=== PATIENT | female | born 1995 | race Caucasian/White ===

== ENCOUNTER 2019-10-22 17:10 | Emergency (ER) | payer BC, SELFPAY ==
[2019-10-22 17:22] VITALS: BP 137/95; PULSE 84; RESP 18; TEMP 36.8; O2SAT 98; BMI 28.8
--- NOTE | 2019-10-22 17:28 | HMH.EDUTC ---
[facility] [place] Clinical Impression: Spider bite Qualifiers: Encounter type: initial encounter Injury intent: undetermined intent Qualified Code(s): T63.304A - Toxic effect of unspecified spider venom, undetermined, initial encounter Cellulitis Qualifiers: Site of cellulitis: extremity Site of cellulitis of extremity: upper extremity Laterality: left Qualified Code(s): L03.114 - Cellulitis of left upper limb Disposition: Home, Self-Care Condition on Discharge: Good Instructions: DI for Cellulitis -- Adult, Cellulitis, Clindamycin, DI for Spider Bites Additional Instructions: *Start antibiotic(s) immediately and be sure to take as ordered for the FULL length of time although you may be feeling better or start to see improvement in the next 24-48 hours *Monitor closely. Outlined redness so that you can monitor easier. Follow up immediately for new or worsening symptoms including but not limited to redness, swelling, streaking from site fever or chills. *Warm compress 15 minutes 3-4 times day *Never squeeze or pop these on your own. Seek immediate medical attention next time this occurs *Monitor Temp. Tylenol every 4 hours as needed and ibuprofen every 6 hours as needed (as long as your primary care doctor has told you that it is ok to take both. For fever, aches, pain. ER if no less that 101 despite Tylenol and ibuprofen Follow up with your family doctor/primary care physician in the next 48-72 hours if no improvement Straight to ER if any life threatening symptoms Return if needed Prescriptions: clindamycin HCL [Clindamycin HCl 300mg Cap] 300 mg PO Q8 10 Days #30 cap Transmission Status: Pending to [facility] Referrals: Provider,Referral, [Primary Care Provider] - As needed Time of Disposition: 17:38 Medical Decision Making - Chinedu Inquiry Pt receiving controlled substance: No Chinedu was queried for this patient: No Vital Signs: 10/22/19 17:22 Temperature 98.3 F Temperature Source Oral Pulse Rate [Right Brachial] 84 Respiratory Rate 18 Blood Pressure [Right Arm] 137/95 H Blood Pressure Mean [Right Arm] 109 Blood Pressure Source [Right Arm] Automatic Cuff Blood Pressure Position [Right Arm] Sitting 02 Sat by Pulse Oximetry 98 Oxygen Delivery Method Room Air - Reevaluation(s) Time: 17:38 Reevaluation #1: Recommended lab work and xray and patient declined at this time, states that she will try the antibiotics and if no improvement will return and have lab work and xray Patient verbalized understanding of associated risks [facility] [place] - General Stated complaint: ? spider bite on 10/20/19 left elbow Time Seen by Provider: 10/22/19 17:28 Mode of Arrival: Ambulatory Source of Information: Patient Limitations: No Limitations Description of Symptoms (Recalled from Triage Doc. by RN): PATIENT C/O POSSIBLE SPIDER BITE TO LEFT ELBOW SINCE MONDAY; REDNESS NOTED. STATES SHE HAS BEEN TAKING BENADRYL AT HOME HEENT Symptoms (Recalled from RN notes): No Resp Symptoms (Recalled from RN notes): No Skin Symptoms (Recalled from RN notes): Yes MS Symptoms (Recalled from RN notes): No Functional Status (Recalled from RN notes): WNL - History of Present Illness Provider Complaint: Patient state that she thinks she got bitten by spider a couple of days ago in her left elbow States that ever since she noticed she has had some redness and swelling Denies injury States that it is warm to the touch States that she has been taking Benadryl and it has helped some with the itching - Related Data Home Medications Medication Instructions Recorded Confirmed dorzolamide 2 % eye drops 1 drp OPHTHALMIC TID 07/06/18 07/06/18 latanoprost 0.005 % eye drops 1 drp OPHTHALMIC QPM 07/06/18 07/06/18 tobramycin 0.3 %-lotepred 0.5 % 1 drp OPHTHALMIC QID 07/06/18 07/06/18 eye drops,suspension Previous Rx's Medication Instructions Recorded sulfacetamide sodium 10 % eye drops 1 drp OPHTHALMIC Q4H #15 ml 07/06/18 polyethylen
[2019-10-22 17:40] VITALS: BP 137/95; PULSE 84; RESP 18; TEMP 36.8; O2SAT 98
== END 2019-10-22 17:43 | disposition home or self-care (01) ==
PROVIDERS: Emergency Provider Nurse Practitioner
DX: L03.114 Cellulitis of left upper limb (principal); T63.304A Toxic effect of unspecified spider venom, undetermined, initial encounter; F17.210 Nicotine dependence, cigarettes, uncomplicated
CPT/HCPCS: 99201

== ENCOUNTER 2020-04-23 21:29 | Emergency (ER) | payer BC, SELFPAY ==
[2020-04-23 21:43] VITALS: BP 127/90; PULSE 99; RESP 16; TEMP 37; O2SAT 99; BMI 27.4
--- NOTE | 2020-04-23 21:50 | CT_ITS ---
PROCEDURE: CT ABDOMEN PELVIS WO CON CLINICAL INDICATION: right flank pain COMPARISON: CT ABDPELW CT ABD PELVIS W/ CONTRAST from 10/15/2015 TECHNIQUE: Axial images obtained with sagittal and coronal reformats. All CT scans at the facility use one or more dose reduction, viz: automated exposure control, ma/kV adjustment per patient size (including targeted exams where dose is matched to indication, i.e. head), or iterative reconstruction technique. FINDINGS: Lower thorax: No acute finding ABDOMEN: Liver: No masses or biliary dilatation. Gallbladder: Gallbladder is contracted showing no obvious stones. Pancreas: No masses or peripancreatic fluid collections. Spleen: unremarkable Adrenals: unremarkable Kidneys/ureters: The kidneys are normal in size, there are no calculi seen in either kidney there is no obstructive uropathy noted. There are no calculi seen along the course of either ureter. ABDOMEN & PELVIS: Stomach bowel: The stomach is markedly distended with ingested food particles and air. There are mildly dilated fluid-filled loops of small bowel. There is a moderately large amount stool in the cecum ascending colon and transverse colon. The descending and sigmoid colon are decompressed. The rectum appears normal. Peritoneum: No abnormal fluid collections. No obvious inflammatory changes. No free air. Lymph nodes: No enlarged lymph nodes apparent. Vasculature: No evidence of abdominal aortic aneurysm. No retroperitoneal hemorrhage evident. Bones: No acute fracture PELVIS: Reproductive: unremarkable Bladder: The bladder is partially decompressed but appears normal and there is no free fluid in the pelvis. Appendix: Unremarkable. No distention or periappendiceal phlegmonous change. IMPRESSION: No renal or ureteral calculi identified, [id number] right-sided constipation Dictated by: Dr. Berny Galicia MD 04/24/2020 08:13 Dr. Berny Galicia MD in [place] 04/24/2020 08:13
[2020-04-23 22:00] VITALS: BP 134/88; PULSE 88; RESP 17; O2SAT 99
--- NOTE | 2020-04-23 22:01 | HMH.EDGENADL ---
ED Disposition Clinical Impression: UTI (urinary tract infection) Qualifiers: Urinary tract infection type: site unspecified Hematuria presence: without hematuria Qualified Code(s): N39.0 - Urinary tract infection, site not specified Disposition: Home, Self-Care Condition on Discharge: Good Instructions: DI for Urinary Tract Infection (UTI) Additional Instructions: use meds and call pcp about urine culture Prescriptions: levoFLOXacin [Levaquin 500mg tab] 500 mg PO DAILY #7 tab Transmission Status: Pending to [facility] Referrals: PCP,No [Primary Care Provider] - - Critical Care Critical Care Time: No Attestation: On 04/23/20, the high probability of a clinically significant, sudden or life threatening deterioration of the following system(s) required my full and direct attention, intervention and personal management. The time I documented below is in addition to time spent performing reported procedures but includes the following listed in this critical care notation. Medical Decision Making - Medical Records Medical records reviewed: Yes: I reviewed the patient's medical records. - Chinedu Inquiry Pt receiving controlled substance: No Vital Signs: 04/23/20 21:43 04/23/20 22:00 Temperature 98.6 F Temperature Source Oral Pulse Rate [Right] 99 H 88 Respiratory Rate 16 17 Blood Pressure [Right Arm] 127/90 134/88 Blood Pressure Mean [Right Arm] 102 103 Blood Pressure Source [Right Arm] Automatic Cuff Automatic Cuff Blood Pressure Position [Right Arm] Sitting Supine 02 Sat by Pulse Oximetry 99 99 Oxygen Delivery Method Room Air Room Air - Lab Data Lab results reviewed: Yes: I reviewed the patient's lab results. Lab Results 04/23/20 21:35: Urine Color Yellow, Urine Appearance Cloudy, Urine pH 7.0, Ur Specific [place] 1.020, Urine Protein Negative, Urine Glucose (UA) Negative, Urine Ketones Negative, Urine Blood Negative, Urine Nitrate Negative, Urine Bilirubin Negative, Urine Urobilinogen 0.2, Ur Leukocyte Esterase 2+ A, Urine WBC 5-10, Ur Squamous Epith Cells Occasional, Amorphous Sediment 1+, Urine Bacteria 1+ 04/23/20 21:35: Urine HCG, Qual Negative 04/23/20 21:55: WBC 5.1, RBC 4.88, Hgb 15.0, Hct 45.7, MCV 93.7, MCH 30.8, MCHC 32.9, RDW 13.5, Plt Count 217, MPV 7.3 L, Neut % (Auto) 56.3, Lymph % (Auto) 25.6, [place] % (Auto) 14.6 H, Eos % (Auto) 1.4, Baso % (Auto) 2.0, Neut # (Auto) 2.9, Lymph # (Auto) 1.3, [place] # (Auto) 0.7, Eos # (Auto) 0.1, Baso # (Auto) 0.1 04/23/20 21:55: Sodium 138, Potassium 3.8, Chloride 101, Carbon Dioxide 30, Anion Gap 10.8, BUN 14, Creatinine 0.80, Estimated Creat Clear 114, Estimated GFR 87, Est GFR ( Amer) 105, Glucose 92, Calcium 9.7, Total Bilirubin 0.5, AST 48 H, ALT 53, Alkaline Phosphatase 46, C-Reactive Protein 0.8, Total Protein 7.7, Albumin 4.5, Globulin 3.2, Albumin/Globulin Ratio 1.4, Amylase 61, Lipase 101 Result diagrams: 04/23/20 21:55 04/23/20 21:55 Orders (Tests/Meds): ED MEDICATIONS Generic Name Dose Route Start Last Admin Trade Name Freq PRN Reason Stop Dose Admin Sodium Chloride 1,000 mls @ 999 mls/hr 04/23/20 22:00 04/23/20 22:03 Sod Chlor 0.9% 1000ml Bag IV 04/23/20 23:00 999 mls/hr .Q1H1M MARIANN Administration Ceftriaxone Sodium 1 gm/ 50 mls @ 100 mls/hr 04/23/20 22:30 04/23/20 22:30 Sodium Chloride IV 05/07/20 22:29 100 mls/hr Q24H MARIANN Administration Protocol Discontinued Medications Generic Name Dose Route Start Last Admin Trade Name Freq PRN Reason Stop Dose Admin Ketorolac Tromethamine 30 mg 04/23/20 21:50 04/23/20 22:03 Ketorolac 30mg/Ml Vial IV 04/23/20 21:51 30 mg ONCE ONE Administration Ondansetron HCl 4 mg 04/23/20 21:50 04/23/20 22:03 Ondansetron 4mg/2ml Vial IV 04/23/20 21:51 4 mg ONCE ONE Administration ORDERS Category Date Time Status CT abdomen pelvis wo con Stat Cat Scan 04/23/20 21:50 Taken Complete Blood Count Auto Diff Stat Lab 04/23/20 21:55
[2020-04-23 22:02] LABS: Microscopic, Urine URINE MICROSCOPIC (MICROSCOPIC)
[2020-04-23 22:04] LABS: Bilirubin,Urine Negative (Negative); Blood, Urine Negative (Negative); Color,Urine YELLOW (Yellow); Glucose,Urine (UA) Negative (Negative); Ketones,Urine Negative (Negative); Leukocyte Esterase,Urine 2+ (Negative); Nitrate,Urine Negative (Negative); Protein,Urine Negative (Negative); Urobilinogen,Urine 0.2 EU/dl (0.2)
[2020-04-23 22:09] LABS: Basophils # 0.1 K/mm3 (0-0.2); Eosinophils # 0.1 K/mm3 (0.0-0.4); Eosinophils % 1.4 % (0.1-12.0); Hematocrit 45.7 % (37.0-47.0); Lymphocytes # 1.3 K/mm3 (0.7-4.5); Lymphocytes % 25.6 % (10-50); Mean Corpuscular HGB Conc 32.9 g/dL (31.8-35.4); Mean Corpuscular Hemoglobin 30.8 pg (27.0-31.2); Mean Corpuscular Volume 93.7 fl (81-99); Mean Platelet Volume 7.3 fl (7.4-10.4); Monocytes # 0.7 K/mm3 (0.1-1.0); Monocytes % 14.6 % (1.7-9.3); Neutrophils # 2.9 K/mm3 (1.8-7.8); Neutrophils % 56.3 % (37.0-80.0); Platelet Count 217 K/mm3 (142-424); Red Blood Count 4.88 M/mm3 (4.20-5.40); Red Cell Distribution Width 13.5 % (11.5-17.5); White Blood Count 5.1 K/mm3 (4.8-10.8)
[2020-04-23 22:15] LABS: Chloride 101 mmol/L (98-107); Potassium 3.8 mmoL/L (3.5-5.1); Sodium 138 mmol/L (136-145)
[2020-04-23 22:16] LABS: Amorphous Sediment,Urine 1+ /lpf; Appearance,Urine Cloudy (Clear); Bacteria,Urine 1+ /lpf; Squamous Epithelial Cell,Urine Occasional #/hpf (0-5); Urine Pregnancy, HCG Qual. Negative (Negative)
[2020-04-23 22:17] LABS: Amylase 61 U/L (30-110)
[2020-04-23 22:18] LABS: Alanine Aminotransferase 53 U/L (12-78); Albumin Level 4.5 g/dl (3.5-5.0); Albumin/Globulin Ratio 1.4 (1.1-1.8); Alkaline Phosphatase 46 U/L (38-126); Anion Gap 10.8 mEq/L (5-15); Aspartate Amino Transferase 48 U/L (14-36); Bilirubin,Total 0.5 mg/dl (0.2-1.3); Blood Urea Nitrogen 14 mg/dl (7-17); Calcium 9.7 mg/dl (8.4-10.2); Carbon Dioxide 30 mmol/L (22.0-30.0); Creatinine Clearance Estimated 114 mL/min (50-200); Estimated Glomerular Filt Rate 87 ml/min (>60); GFR (African American) 105 ML/MIN (>60); Globulin 3.2 g/dL (1.3-3.2); Glucose 92 mg/dl (74-100); Lipase 101 U/L (23-300); Total Protein,Serum 7.7 g/dl (6.3-8.2)
[2020-04-23 22:24] LABS: C-Reactive Protein 0.8 mg/L (0-4)
[2020-04-23 23:05] VITALS: BP 132/79; PULSE 84; RESP 16; TEMP 37; O2SAT 99
[2020-04-23 23:52] LABS: Erythrocyte Sedimentation Rate 18 mm/hr (0-20)
== END 2020-04-23 23:09 | disposition home or self-care (01) ==
PROVIDERS: Emergency Provider Emergency Medicine
DX: N30.00 Acute cystitis without hematuria (principal); F17.210 Nicotine dependence, cigarettes, uncomplicated
CPT/HCPCS: 74176; 80053; 81001; 81025; 82150; 83690; 85025; 85651; 86140; 87086; 96365; 96367; 96375; 99283; J2405

== ENCOUNTER 2020-11-16 01:52 | Emergency (ER) | payer BC, SELFPAY ==
[2020-11-16 01:53] VITALS: BP 124/85; PULSE 83; RESP 14; TEMP 36.7; O2SAT 98; BMI 27.4
[2020-11-16 02:05] VITALS: BMI 22.8
[2020-11-16 02:12] LABS: Microscopic, Urine URINE MICROSCOPIC (MICROSCOPIC)
[2020-11-16 02:16] LABS: Appearance,Urine CLOUDY (Clear); Bilirubin,Urine Negative (Negative); Blood, Urine Negative (Negative); Color,Urine YELLOW (Yellow); Glucose,Urine (UA) Negative (Negative); Ketones,Urine Negative (Negative); Leukocyte Esterase,Urine TRACE (Negative); Nitrate,Urine Negative (Negative); Protein,Urine Negative (Negative); Urine Pregnancy, HCG Qual. Negative (Negative)
[2020-11-16 02:20] LABS: Basophils # 0.1 K/mm3 (0-0.2); Basophils % 0.6 % (0.1-2.0); Eosinophils # 0.1 K/mm3 (0.0-0.4); Eosinophils % 0.8 % (0.1-12.0); Hemoglobin 13.8 g/dL (12.2-16.2); Lymphocytes # 2.9 K/mm3 (0.7-4.5); Lymphocytes % 38.4 % (10-50); Mean Corpuscular HGB Conc 33.6 g/dL (31.8-35.4); Mean Corpuscular Hemoglobin 29.8 pg (27.0-31.2); Mean Corpuscular Volume 88.7 fl (81-99); Mean Platelet Volume 6.9 fl (7.4-10.4); Monocytes # 0.4 K/mm3 (0.1-1.0); Monocytes % 5.4 % (1.7-9.3); Neutrophils # 4.1 K/mm3 (1.8-7.8); Neutrophils % 54.7 % (37.0-80.0); Platelet Count 265 K/mm3 (142-424); Red Blood Count 4.63 M/mm3 (4.20-5.40); Red Cell Distribution Width 13.2 % (11.5-17.5); White Blood Count 7.5 K/mm3 (4.8-10.8)
[2020-11-16 02:23] LABS: Alanine Aminotransferase 24 U/L (12-78); Albumin Level 4.3 g/dl (3.5-5.0); Albumin/Globulin Ratio 1.5 (1.1-1.8); Alkaline Phosphatase 36 U/L (38-126); Amylase 54 U/L (30-110); Anion Gap 10.6 mEq/L (5-15); Aspartate Amino Transferase 29 U/L (14-36); Bilirubin,Total 0.5 mg/dl (0.2-1.3); Blood Urea Nitrogen 9 mg/dl (7-17); Carbon Dioxide 28 mmol/L (22.0-30.0); Chloride 104 mmol/L (98-107); Creatinine Clearance Estimated 127 mL/min (50-200); Estimated Glomerular Filt Rate 121 ml/min (>60); GFR (African American) 146 ML/MIN (>60); Globulin 2.9 g/dL (1.3-3.2); Glucose 92 mg/dl (74-100); Lipase 62 U/L (23-300); Potassium 3.6 mmoL/L (3.5-5.1); Sodium 139 mmol/L (136-145); Total Protein,Serum 7.2 g/dl (6.3-8.2)
[2020-11-16 02:25] LABS: Amorphous Sediment,Urine 2+ /lpf; Bacteria,Urine 3+ /lpf
[2020-11-16 02:39] VITALS: BP 129/81; PULSE 66; RESP 16; O2SAT 98
--- NOTE | 2020-11-16 02:39 | HMH.EDABDPAI ---
ED Disposition Clinical Impression: RUQ pain Disposition: Home, Self-Care Condition on Discharge: Good Instructions: DI for Acute Abdominal Pain Prescriptions: Ondansetron [Zofran 4mg ODT] 4 mg PO Q6HP PRN #30 tab.rapdis PRN Reason: Nausea Transmission Status: Pending to [facility] Dicyclomine HCl [Bentyl 10mg capsule] 10 mg PO Q8HP PRN #30 cap PRN Reason: abdominal pain Transmission Status: Pending to [facility] Ketorolac Tromethamine [Toradol 10mg tablet] 10 mg PO Q6H 5 Days #20 tab Transmission Status: Pending to [facility] Referrals: Provider,Referral, MD [Primary Care Provider] - - Critical Care Critical Care Time: No Attestation: On 11/16/20, the high probability of a clinically significant, sudden or life threatening deterioration of the following system(s) required my full and direct attention, intervention and personal management. The time I documented below is in addition to time spent performing reported procedures but includes the following listed in this critical care notation. Medical Decision Making - Medical Records Medical records reviewed: Yes: I reviewed the patient's medical records. - Chinedu Inquiry Pt receiving controlled substance: No Vital Signs: 11/16/20 01:53 Temperature 98.0 F Temperature Source Oral Pulse Rate [Left Radial] 83 Respiratory Rate 14 Blood Pressure [Left Arm] 124/85 Blood Pressure Mean [Left Arm] 98 Blood Pressure Source [Left Arm] Automatic Cuff Blood Pressure Position [Left Arm] Sitting 02 Sat by Pulse Oximetry 98 Oxygen Delivery Method Room Air - Lab Data Lab results reviewed: Yes: I reviewed the patient's lab results. Lab Results 11/16/20 02:06: Urine Color Yellow, Urine Appearance Cloudy, Urine pH 7.0, Ur Specific [place] 1.020, Urine Protein Negative, Urine Glucose (UA) Negative, Urine Ketones Negative, Urine Blood Negative, Urine Nitrate Negative, Urine Bilirubin Negative, Urine Urobilinogen 1.0, Ur Leukocyte Esterase Trace, Urine WBC 10-20, Ur Squamous Epith Cells 5-10, Amorphous Sediment 2+, Urine Bacteria 3+ 11/16/20 02:06: WBC 7.5, RBC 4.63, Hgb 13.8, Hct 41.0, MCV 88.7, MCH 29.8, MCHC 33.6, RDW 13.2, Plt Count 265, MPV 6.9 L, Neut % (Auto) 54.7, Lymph % (Auto) 38.4, [place] % (Auto) 5.4, Eos % (Auto) 0.8, Baso % (Auto) 0.6, Neut # (Auto) 4.1, Lymph # (Auto) 2.9, [place] # (Auto) 0.4, Eos # (Auto) 0.1, Baso # (Auto) 0.1 11/16/20 02:06: Urine HCG, Qual Negative 11/16/20 02:06: Sodium 139, Potassium 3.6, Chloride 104, Carbon Dioxide 28, Anion Gap 10.6, BUN 9, Creatinine 0.60, Estimated Creat Clear 127, Estimated GFR 121, Est GFR ( Amer) 146, Glucose 92, Calcium 9.0, Total Bilirubin 0.5, AST 29, ALT 24, Alkaline Phosphatase 36 L, Total Protein 7.2, Albumin 4.3, Globulin 2.9, Albumin/Globulin Ratio 1.5, Amylase 54, Lipase 62 Result diagrams: 11/16/20 02:06 11/16/20 02:06 Orders (Tests/Meds): ORDERS Category Date Time Status Urine Culture Stat Micro 11/16/20 02:06 Received Medical Decision Narrative: No evidence of acute abdomen on physical exam. Routine labs unremarkable. No evidence of cholangitis or cholecystitis. Mild right upper quadrant tenderness to palpation. No evidence of any biliary stasis. We will go ahead and treat with ketorolac and dicyclomine which will be prescribed as well. Given lack of ultrasound coverage currently will get an outpatient ultrasound of the right upper quadrant and refer to her PCP for further evaluation and treatment based on those results. Abdominal Pain HPI - General Chief Complaint: Abdominal Pain Stated Complaint: Pain in right side,vomiting,nausea Time Seen by Provider: 11/16/20 02:10 Mode of Arrival: Ambulatory Source of Information: Patient Limitations: No Limitations Description of Symptoms (Recalled from ER Triage Doc. by RN): Pt reports RUQ pain that comes and goes for the past month but has been constant tonight. She also reports nausea and th
[2020-11-16 02:46] VITALS: BP 129/81; PULSE 75; RESP 15; TEMP 36.7; O2SAT 99
== END 2020-11-16 02:58 | disposition home or self-care (01) ==
PROVIDERS: Emergency Provider Emergency Medicine
DX: R10.11 Right upper quadrant pain (principal); R11.0 Nausea; F17.210 Nicotine dependence, cigarettes, uncomplicated
CPT/HCPCS: 80053; 81001; 81025; 82150; 83690; 85025; 87086; 99282; J2405

== ENCOUNTER → 2021-10-26 12:03 | Outpatient (CLI) | payer BC, SELFPAY ==
[2021-10-27 13:12] LABS: Rapid Plasma Reagin Ab Titer Non Reactive (NonRea<1:1)
[2021-10-30 20:58] LABS: Hep A Ab, IgM NEGATIVE; Hepatitis B Core Antibody IgM NEGATIVE; Hepatitis B Surface Antigen NEGATIVE; Hepatitis C Antibody <0.1
[2021-10-30 21:00] LABS: HSV 2 IgG, Type Spec <0.91
[2021-12-01 07:31] LABS: HIV Screen 4th Generation wRfx NON REACTIVE
== END ==
PROVIDERS: Visit Provider Obstetrics & Gynecology
DX: Z72.51 High risk heterosexual behavior (principal); Z11.4 Encounter for screening for human immunodeficiency virus [HIV]
CPT/HCPCS: 36415; 80074; 86592; 86695; 86703; 86790; G0432

== ENCOUNTER 2021-11-26 11:24 | Emergency (ER) | payer BC, SELFPAY ==
[2021-11-26 11:32] VITALS: BP 108/70; PULSE 91; RESP 16; TEMP 36.8; O2SAT 95; BMI 28.3
--- NOTE | 2021-11-26 11:43 | HMH.EDUTC ---
[facility] [place] Disposition Clinical Impression: Pharyngitis Qualifiers: Pharyngitis/tonsillitis etiology: unspecified etiology Qualified Code(s): J02.9 - Acute pharyngitis, unspecified Disposition: Home, Self-Care Condition on Discharge: Good Instructions: DI for Pharyngitis/Tonsillopharyngitis -- Adult Additional Instructions: Drink plenty of fluids. Take tylenol or ibuprofen for pain or fever. Take the medications as directed. Follow up with your regular doctor. GO TO THE ER FOR ANY WORSENING SYMPTOMS Quarantine until you know the results of your covid-19 test. Notify your school or workplace of your results and follow their instructions regarding return to work/school. Prescriptions: Brompheniramine/Pseudoephed/Dm [Bromfed Dm Cough Syrup] 5 ml PO Q6HP PRN #240 ml PRN Reason: Cough Transmission Status: Received by [facility] methylPREDNISolone [Medrol] 4 mg PO DIRECTED 6 Days #21 packet Transmission Status: Received by [facility] Azithromycin [Z-Kal 250mg Tab*] 250 mg PO UD DOSE PK #6 tab Transmission Status: Received by [facility] Referrals: Provider,Referral, [Primary Care Provider] - Forms: Work/School Release Time of Disposition: 12:25 Medical Decision Making - Medical Records Medical records reviewed: No: I reviewed the patient's medical records. - Chinedu Inquiry Pt receiving controlled substance: No Vital Signs: 11/26/21 11:32 11/26/21 12:34 Temperature 98.3 F 98.3 F Temperature Source Oral Pulse Rate 91 H Pulse Rate [Left] 91 H Respiratory Rate 16 16 Blood Pressure 108/70 L Blood Pressure [Right Arm] 108/70 L Blood Pressure Mean [Right Arm] 82 02 Sat by Pulse Oximetry 95 - Lab Data Lab results reviewed: Yes: I reviewed the patient's lab results. Lab Results 11/26/21 11:31: Group A Strep Rapid Negative [facility] [place] HPI - General Stated complaint: sore throat, fever Time Seen by Provider: 11/26/21 11:43 Description of Symptoms (Recalled from Triage Doc. by RN): patient comes in today with complaints of sore throat and swelling. symptoms began 4 days ago. HEENT Symptoms (Recalled from RN notes): Yes Resp Symptoms (Recalled from RN notes): No Skin Symptoms (Recalled from RN notes): No MS Symptoms (Recalled from RN notes): No Functional Status (Recalled from RN notes): wnl - History of Present Illness Provider Complaint: She c/o sore throat and feeling like she has swelling in her throat for the past 4 days. She denies fever, chills, or body aches. She has a dry nonproductive cough also. - Related Data Home Medications Medication Instructions Recorded Confirmed dorzolamide 22.3 mg-timolol 6.8 1 drp OPHTHALMIC ml 06/15/21 11/23/21 mg/mL eye drops Previous Rx's Medication Instructions Recorded Azithromycin [Z-Kal 250mg Tab*] 250 mg PO UD DOSE PK #6 tab 11/26/21 Brompheniramine/Pseudoephed/Dm 5 ml PO Q6HP PRN #240 ml 11/26/21 [Bromfed Dm Cough Syrup] methylPREDNISolone [Medrol] 4 mg PO DIRECTED 6 Days #21 11/26/21 packet Allergies Allergy/AdvReac Type Severity Reaction Status Date / Time No Known Drug Allergies Allergy Unknown -- Verified 11/26/21 11:34 - Worker's Comp Is this a Worker's Comp case?: No [facility] History - Hepatitis A Screen Attestation statement:: This patient has been screened for Hepatitis A risk factors. I have reviewed the patient's past medical history: Yes Medical History: Denies:: Cancer, Diabetes Mellitus Type 1, Diabetes Mellitus Type 2, MRSA Other Medical History: Reports: Glaucoma Other Surgeries: Yes: Other (Eye surgeries) Amputation: No Fractures: No Comment: No previous surgeries - Social History Smoking Status: Current every day smoker Tobacco Type: cigarettes # Packs/Day (cigarettes): 1 Alcohol Intake: current Alcohol Intake Frequency:: a few times a week Occupational Status: employed Family Hx:: No significant family history ROS Obtained: Yes A
[2021-11-26 12:10] LABS: Strep Scrn Group A (Rapid) Negative (Negative)
[2021-11-26 12:34] VITALS: BP 108/70; PULSE 91; RESP 16; TEMP 36.8
== END 2021-11-26 12:35 | disposition home or self-care (01) ==
PROVIDERS: Emergency Provider Nurse Practitioner Family
DX: J02.9 Acute pharyngitis, unspecified (principal)
CPT/HCPCS: 87430; 99212; G0463

== ENCOUNTER 2022-04-04 14:04 | Emergency (ER) | payer BC, SELFPAY ==
[2022-04-04 16:05] VITALS: BP 116/72; PULSE 70; RESP 18; TEMP 36.6; O2SAT 100; BMI 28.3
--- NOTE | 2022-04-04 16:34 | EXP.UTC ---
Discharge Plan Disposition Patient Disposition: Home, Self-Care Condition: Good Prescriptions Prescriptions: New mupirocin 2 % ointment 1 applic topical TID 10 Days Qty: 22 0RF Rx Instructions: apply to area as directed sulfamethoxazole-trimethoprim [Bactrim DS] 800-160 mg tablet 1 tab PO Q12H 7 Days Qty: 14 0RF No Action dorzolamide-timolol 22.3-6.8 mg/mL drops 1 drp OPHTHALMIC terconazole 0.8 % cream 1 appful vaginal HS 3 Days Qty: 20 0RF fluconazole [Diflucan] 150 mg tablet 150 mg PO ONCE 0 Days Qty: 2 0RF Rx Instructions: take 1 tablet by mouth, may repeat 2nd dose in 72 hours Referrals Follow up/Referrals: Provider,Referral, MD [Primary Care Provider] - See instructions Activity Restrictions/Add. Instructions Additional Instructions/Restrictions: Clean area with antibacterial soap and water and apply ointment as directed Take oral antibiotics as prescribed FOllow up with your Family Doctor if no improvement or any worsening of symptoms Straight to ER If any life threatening symptoms Clinical Impressions Clinical Impression: Skin problem Instructions Patient Instructions: Trimethoprim/Sulfamethoxazole (Alternative Therapy), Mupirocin Discharge ED Provider: Salma Anderson [facility] [place] General Stated complaint: Possible reaction to tattoo ink LT arm rash Mode of Arrival: Ambulatory Source of Information: Patient Limitations: No Limitations Time Seen by Provider: 04/04/22 16:35 Description of Symptoms (Recalled from Triage Doc. by RN): PT TO [facility] WITH RASH AROUND TATTOO ON LEFT UPPER ARM. PT REPORTS SHE GOT IT 3 MONTHS AGO AND IT IS NOW RAISED AND ITCHY HEENT Symptoms (Recalled from RN notes): No Resp Symptoms (Recalled from RN notes): No Skin Symptoms (Recalled from RN notes): Yes (RAISED BUMPS AND REDNESS) MS Symptoms (Recalled from RN notes): No Functional Status (Recalled from RN notes): WDL History of Present Illness Provider Complaint: Patient states that she got a tatoo a couple months ago and she noticed now that she is having a rash and raised bumpy like areas thinks it has got infected States that she hast had any drainage or anything but looks like it did when she got an infection before Related Data Home Medications Medication Instructions Recorded Confirmed dorzolamide 22.3 mg-timolol 6.8 1 drp ophthalmic (eye) 06/15/21 02/28/22 mg/mL eye drops Previous Rx's Medication Instructions Recorded fluconazole 150 mg tablet 150 mg PO ONCE 2 doses #2 tabs 02/28/22 (Diflucan) terconazole 0.8 % vaginal cream 1 appful vaginal HS 3 days #20 02/28/22 grams mupirocin 2 % topical ointment 1 applic topical TID 10 days #22 04/04/22 grams sulfamethoxazole 800 1 tab PO Q12H 7 days #14 tabs 04/04/22 mg-trimethoprim 160 mg tablet (Bactrim DS) Allergies Allergy/AdvReac Type Severity Reaction Status Date / Time No Known Drug Allergies Allergy Unknown -- Verified 02/28/22 13:36 Worker's Comp Is this a Worker's Comp case?: No PFSH PFSH Surgical History (Updated 02/28/22 @ 13:37 by Emilie Acevedo, CONSTANTINO) Hx of cataract surgery Hx of wisdom tooth extraction Social History (Updated 02/28/22 @ 13:37 by Emilie Acevedo, CONSTANTINO) Smoking Status: Former smoker second hand exposure: No alcohol intake: current current occupational status: employed Travel in the last 8 weeks: None ROS Obtained: Yes All systems reviewed & no additional complaints except as documented and Yes Systems reviewed as appropriate & no additional complaints except as documented Constitutional Constitutional: Reports system reviewed and no additional complaints, except as documented, Reports as per HPI, Denies body ache, Denies chills and Denies fever(s) ENT Ears, Nose, Mouth, and Throat: Reports system reviewed and no additional complaints, except as documented and Reports as per HPI Cardiovascular Cardiovascular: Reports system reviewed and no additional complaints,
[2022-04-04 17:04] VITALS: BP 121/78; PULSE 67; RESP 17; TEMP 36.6; O2SAT 100
== END 2022-04-04 17:07 | disposition home or self-care (01) ==
PROVIDERS: Emergency Provider Nurse Practitioner
DX: L98.9 Disorder of the skin and subcutaneous tissue, unspecified (principal)
CPT/HCPCS: 99212; G0463

== ENCOUNTER 2022-07-11 16:40 | Emergency (ER) | payer BC, SELFPAY ==
[2022-07-11 17:15] VITALS: BP 119/88; PULSE 98; RESP 21; TEMP 37; O2SAT 99; BMI 16.9
--- NOTE | 2022-07-11 17:44 | EXP.UTC ---
Discharge Plan Disposition Patient Disposition: Home, Self-Care Condition: Good Prescriptions Prescriptions: No Action dorzolamide-timolol 22.3-6.8 mg/mL drops 1 drp OPHTHALMIC hydrocortisone 2.5 % cream 1 applic topical BID 14 Days Qty: 30 0RF metronidazole 500 mg tablet 500 mg PO BID 7 Days Qty: 14 0RF mupirocin 2 % ointment 1 applic topical TID 10 Days Qty: 22 0RF Rx Instructions: apply to area as directed sulfamethoxazole-trimethoprim [Bactrim DS] 800-160 mg tablet 1 tab PO Q12H 7 Days Qty: 14 0RF Referrals Follow up/Referrals: Provider,Referral, MD [Primary Care Provider] - See instructions Activity Restrictions/Add. Instructions Additional Instructions/Restrictions: Watch eyes for woresning of redness and drainage Follow up with Eye Doctor if you start having worsening of redness, thick drainage or matting Return if needed Straight to ER if any life threatening symptoms Clinical Impressions Clinical Impression: Eye irritation Instructions Patient Instructions: DI for Conjunctivitis Discharge ED Provider: Salma Anderson [facility] General Stated complaint: Possible pink eye Mode of Arrival: Ambulatory Source of Information: Patient Limitations: No Limitations Time Seen by Provider: 07/11/22 17:44 Description of Symptoms (Recalled from Triage Doc. by RN): PATIENT C/O REDNESS AND DRAINAGE TO BILATERAL EYES SINCE THIS MORNING HEENT Symptoms (Recalled from RN notes): Yes Resp Symptoms (Recalled from RN notes): No Skin Symptoms (Recalled from RN notes): No MS Symptoms (Recalled from RN notes): No Functional Status (Recalled from RN notes): WNL History of Present Illness Provider Complaint: Patient states that she has been having redness and clear drainage from both eyes since this morning States that son has pink eye and she thinks she may have it now too Related Data Home Medications Medication Instructions Recorded Confirmed dorzolamide 22.3 mg-timolol 6.8 1 drp ophthalmic (eye) 06/15/21 04/26/22 mg/mL eye drops Previous Rx's Medication Instructions Recorded mupirocin 2 % topical ointment 1 applic topical TID 10 days #22 04/04/22 grams sulfamethoxazole 800 1 tab PO Q12H 7 days #14 tabs 04/04/22 mg-trimethoprim 160 mg tablet (Bactrim DS) hydrocortisone 2.5 % topical cream 1 applic topical BID 14 days #30 04/05/22 grams metronidazole 500 mg tablet 500 mg PO BID 7 days #14 tabs 04/11/22 Allergies Allergy/AdvReac Type Severity Reaction Status Date / Time No Known Drug Allergies Allergy Unknown -- Verified 04/26/22 09:20 Worker's Comp Is this a Worker's Comp case?: No [facility] Disclaimer: The information contained in this section may have been updated after the patient was seen, as this information can be updated by other users. Medical History Atopic dermatitis Vaginitis due to Trichomonas Surgical History Hx of cataract surgery Hx of wisdom tooth extraction Social History (Updated 07/11/22 @ 17:38 by Fanny Yoon RN) Smoking Status: Former smoker second hand exposure: No alcohol intake: current current occupational status: employed Travel in the last 8 weeks: None ROS Obtained: Yes All systems reviewed & no additional complaints except as documented and Yes Systems reviewed as appropriate & no additional complaints except as documented Constitutional Constitutional: Reports system reviewed and no additional complaints, except as documented and Reports as per HPI Eyes Eyes: Reports system reviewed and no additional complaints, except as documented, Reports as per HPI, Reports eye discharge and Reports irritation ENT Ears, Nose, Mouth, and Throat: Reports system reviewed and no additional complaints, except as documented and Reports as per HPI Cardiovascular Cardiovascular: Reports system reviewed and n
[2022-07-11 18:00] VITALS: BP 112/79; PULSE 87; RESP 19; TEMP 36.4; O2SAT 99
== END 2022-07-11 18:01 | disposition home or self-care (01) ==
PROVIDERS: Emergency Provider Nurse Practitioner
DX: H57.89 Other specified disorders of eye and adnexa (principal)
CPT/HCPCS: 99212; G0463

== ENCOUNTER 2022-07-28 07:53 | Emergency (ER) | payer BC, SELFPAY ==
[2022-07-28] VITALS (9 sets, daily range): BP systolic 112–132; BP diastolic 62–92; PULSE 63–83; RESP 16; TEMP 36.7; O2SAT 96–100; BMI 28.3
--- NOTE | 2022-07-28 08:00 | PC.NURSE ---
TOÑITO PHELAN at
--- NOTE | 2022-07-28 08:07 | HMH.EDGENADL ---
Discharge Plan Disposition Patient Disposition: Home, Self-Care Condition: Fair Prescriptions Prescriptions: New ibuprofen 600 mg tablet 600 mg PO Q8H PRN (Reason: pain) Qty: 14 0RF polyethylene glycol 3350 [Miralax] 17 gram/dose powder 17 g PO DAILY PRN (Reason: constipation) Qty: 119 0RF No Action dorzolamide-timolol 22.3-6.8 mg/mL drops 1 drp OPHTHALMIC hydrocortisone 2.5 % cream 1 applic topical BID 14 Days Qty: 30 0RF metronidazole 500 mg tablet 500 mg PO BID 7 Days Qty: 14 0RF mupirocin 2 % ointment 1 applic topical TID 10 Days Qty: 22 0RF Rx Instructions: apply to area as directed sulfamethoxazole-trimethoprim [Bactrim DS] 800-160 mg tablet 1 tab PO Q12H 7 Days Qty: 14 0RF Referrals Follow up/Referrals: Provider,Referral, [Primary Care Provider] - See instructions Activity Restrictions/Add. Instructions Additional Instructions/Restrictions: You have been evaluated for abdominal pain. Found to have an ovarian cyst and evidence of constipation. Please monitor your symptoms closely. Take ibuprofen as needed for cramping pain. Try MiraLAX for bowel cleanout. Follow-up with your primary care doctor. Return to the emergency department for any new or worsening symptoms. Clinical Impressions Clinical Impression: Intermittent lower abdominal pain Instructions Patient Instructions: DI for Acute Abdominal Pain Discharge ED Provider: Saira Martinez Adult HPI General Chief complaint: Abdominal Pain Stated complaint: RT lower back pain radiating to RT rib Time Seen by Provider: 07/28/22 07:56 Mode of Arrival: Ambulatory Source of Information: Patient Limitations: No Limitations History of Present Illness HPI narrative: 27-year-old female presenting to the emergency department with right-sided abdominal pain. Pain started about 1 to 2 weeks ago. It is located in the right portion of the abdomen, right lower quadrant and radiating to the right flank. Pain is described as intermittent, sharp. Nothing seems to make it better or worse. She has not tried any medications. No association with eating or drinking. No dysuria, hematuria, vaginal bleeding, vaginal discharge. She denies concern for . No history of kidney stones. No changes in bowel habits. Related Data Home Medications Medication Instructions Recorded Confirmed dorzolamide 22.3 mg-timolol 6.8 1 drp ophthalmic (eye) 06/15/21 04/26/22 mg/mL eye drops Previous Rx's Medication Instructions Recorded mupirocin 2 % topical ointment 1 applic topical TID 10 days #22 04/04/22 grams sulfamethoxazole 800 1 tab PO Q12H 7 days #14 tabs 04/04/22 mg-trimethoprim 160 mg tablet (Bactrim DS) hydrocortisone 2.5 % topical cream 1 applic topical BID 14 days #30 04/05/22 grams metronidazole 500 mg tablet 500 mg PO BID 7 days #14 tabs 04/11/22 ibuprofen 600 mg tablet 600 mg PO Q8H PRN pain #14 tabs 07/28/22 polyethylene glycol 3350 17 17 g PO DAILY PRN constipation 07/28/22 gram/dose oral powder (Miralax) #119 grams Allergies Allergy/AdvReac Type Severity Reaction Status Date / Time No Known Drug Allergies Allergy Unknown -- Verified 04/26/22 09:20 [facility] Disclaimer: The information contained in this section may have been updated after the patient was seen, as this information can be updated by other users. Medical History Atopic dermatitis Vaginitis due to Trichomonas Surgical History Hx of cataract surgery Hx of wisdom tooth extraction Social History (Updated 07/11/22 @ 17:38 by Fanny Yoon RN) Smoking Status: Former smoker second hand exposure: No alcohol intake: current current occupational status: employed Travel in the last 8 weeks: None ROS Obtained: Yes All systems reviewed & no additional complaints except as documented Co
[2022-07-28 08:17] LABS: Microscopic, Urine URINE MICROSCOPIC (MICROSCOPIC)
--- NOTE | 2022-07-28 08:20 | PC.NURSE ---
Pt updated on plan of care. Awaiting lab results, then CT completion.
[2022-07-28 08:21] LABS: Basophils # 0.1 K/mm3 (0-0.2); Basophils % 1.2 % (0.1-2.0); Eosinophils # 0.1 K/mm3 (0.0-0.4); Eosinophils % 1.8 % (0.1-12.0); Hematocrit 41.4 % (37.0-47.0); Hemoglobin 13.7 g/dL (12.2-16.2); Lymphocytes # 1.5 K/mm3 (0.7-4.5); Lymphocytes % 21.4 % (10-50); Mean Corpuscular HGB Conc 33.2 g/dL (31.8-35.4); Mean Corpuscular Hemoglobin 29.2 pg (27.0-31.2); Mean Platelet Volume 7.7 fl (7.4-10.4); Monocytes # 0.3 K/mm3 (0.1-1.0); Neutrophils # 4.8 K/mm3 (1.8-7.8); Neutrophils % 70.5 % (37.0-80.0); Platelet Count 297 K/mm3 (142-424); Red Cell Distribution Width 13.8 % (11.5-17.5); White Blood Count 6.8 K/mm3 (4.8-10.8)
[2022-07-28 08:25] LABS: Appearance,Urine CLEAR (Clear); Bilirubin,Urine Negative (Negative); Blood, Urine Negative (Negative); Color,Urine YELLOW (Yellow); Glucose,Urine (UA) Negative (Negative); Ketones,Urine Negative (Negative); Leukocyte Esterase,Urine Negative (Negative); Nitrate,Urine Negative (Negative); PH,Urine 7.5 (5.0-8.5); Protein,Urine Negative (Negative); Urine Pregnancy, HCG Qual. Negative (Negative); Urobilinogen,Urine 0.2 EU/dl (0.2)
[2022-07-28 08:26] LABS: Alanine Aminotransferase 35 U/L (12-78); Albumin Level 4.6 g/dl (3.5-5.0); Albumin/Globulin Ratio 1.4 (1.1-1.8); Alkaline Phosphatase 50 U/L (38-126); Anion Gap 10.5 mEq/L (5-15); Aspartate Amino Transferase 40 U/L (14-36); Bilirubin,Total 0.8 mg/dl (0.2-1.3); Blood Urea Nitrogen 8 mg/dl (7-17); Calcium 9.1 mg/dl (8.4-10.2); Carbon Dioxide 29 mmol/L (22.0-30.0); Chloride 101 mmol/L (98-107); Creatinine Clearance Estimated 155 mL/min (50-200); Estimated Glomerular Filt Rate 119 ml/min (>60); GFR (African American) 144 ML/MIN (>60); Globulin 3.2 g/dL (1.3-3.2); Glucose 89 mg/dl (74-100); Lipase 39 U/L (23-300); Potassium 3.5 mmoL/L (3.5-5.1); Sodium 137 mmol/L (136-145); Total Protein,Serum 7.8 g/dl (6.3-8.2)
--- NOTE | 2022-07-28 08:34 | CT_ITS ---
FINAL REPORT TECHNIQUE: Thin section axial images were obtained through the abdomen after intravenous contrast. Reconstruction images were obtained from the axial data. Exam was performed using dose reduction techniques. CLINICAL HISTORY: abdominal pain, RLQ COMPARISON: 04/23/2020 FINDINGS: There are several 5 mm or less left lower lobe pulmonary nodules, unchanged.. The liver is homogeneous. The gallbladder is present. The spleen, adrenal glands, and pancreas are unremarkable. There is no hydronephrosis or solid renal mass. Abdominal GI tract is without acute abnormality. There is no abdominal lymphadenopathy or ascites. The uterus is mildly prominent which is likely normal for age. There is a right ovarian cyst measuring 3.1 cm. A large amount of retained stool is seen throughout the colon. The appendix is normal. There is no pelvic lymphadenopathy or ascites. No acute osseous abnormalities identified. IMPRESSION: Right ovarian cyst. Consider follow-up ultrasound in 6 or 10 weeks to evaluate for expected resolution. In patient of this age, this likely a functional cyst. Normal appendix. Reviewed, Interpreted and Dictated by Erendira Ibarra MD Transcribed by Amber Jin Authenticated and [facility]
--- NOTE | 2022-07-28 08:43 | PC.NURSE ---
checked on pt at this time, pt states no needs, call light in reach of pt. Notified pt rad staff should be here soon to take her for CT. white board in pt room updated with POC
--- NOTE | 2022-07-28 08:43 | PC.NURSE ---
rad notified of ct order
--- NOTE | 2022-07-28 09:43 | PC.NURSE ---
contacted rad to check on status on CT results, rad staff states pt scan is in locked status, no preliminary result available yet.
--- NOTE | 2022-07-28 09:58 | PC.NURSE ---
Updated pt on plan of care. No complaints at this time. Awaiting CT reads.
--- NOTE | 2022-07-28 10:06 | US_ITS ---
FINAL REPORT TECHNIQUE: Sonographic images of the pelvis were obtained transvaginally. CLINICAL HISTORY: RLQ pain, cyst on CT FINDINGS: The uterus is anteverted and anteflexed. It measures 9.9 x 4.9 x 6.2 cm. The endometrial stripe measures 10 mm which is normal for age. The myometrium is homogeneous. Multiple nabothian cysts are identified. The cervix is within normal limits. The right ovary measures 3.9 x 3.2 x 2.7 cm. It is normal in appearance. There is a 3.1 cm simple cyst in the right ovary, likely a functional cyst for patient's age. The left ovary measures 2.9 x 2.5 x 2.6 cm. It is normal in appearance. Color imaging to the ovaries is within normal limits. There is no free fluid. IMPRESSION: Simple cyst in the right ovary, likely functional cyst in a patient of this age. This can be followed up in 6-10 weeks to document expected resolution. Reviewed, Interpreted and Dictated by Erendira Ibarra MD Transcribed by Amber Jin Authenticated and [facility]
--- NOTE | 2022-07-28 10:06 | PC.NURSE ---
preliminary ct report given to ER at This time
--- NOTE | 2022-07-28 10:07 | PC.NURSE ---
MD at bedside updating patient.
--- NOTE | 2022-07-28 10:08 | PC.NURSE ---
rad notified of u/s order
--- NOTE | 2022-07-28 10:20 | PC.NURSE ---
updated pt on POC, ultrasound ordered but staff in with another pt and then they will do her exam pt states no needs at this time call light within reach, white board updated
--- NOTE | 2022-07-28 11:45 | INFXCTL.NOTE ---
pt return from u/s
--- NOTE | 2022-07-28 11:46 | PC.NURSE ---
rounded on pt, pt states no needs at this, offered pt blanket, pt declined. Call light within reach
--- NOTE | 2022-07-28 12:22 | PC.NURSE ---
contacted rad to check on status of u/s results, spoke with [facility], states scan is in locked status updated ER
== END 2022-07-28 12:57 | disposition home or self-care (01) ==
PROVIDERS: Emergency Provider Emergency Medicine
DX: R10.31 Right lower quadrant pain (principal); Z87.891 Personal history of nicotine dependence; Z87.2 Personal history of diseases of the skin and subcutaneous tissue; Z87.42 Personal history of other diseases of the female genital tract; Z98.818 Other dental procedure status; Z98.49 Cataract extraction status, unspecified eye
CPT/HCPCS: 74177; 76830; 80053; 81001; 81025; 83690; 85025; 96374; 99285; Q9967

== ENCOUNTER → 2022-08-23 08:23 | Outpatient (POV) | payer BC, SELFPAY | PROVIDERS: Visit Provider Dermatology | DX: Z00.00 Encounter for general adult medical examination without abnormal findings (principal) ==

== ENCOUNTER → 2022-10-05 13:12 | Outpatient (CLI) | payer BC, SELFPAY ==
--- NOTE | 2022-10-05 13:12 | US_ITS ---
FINAL REPORT CLINICAL HISTORY: pelvic pain and following Rt. ovarian cyst COMPARISON: 07/28/2022 FINDINGS: Transvaginal sonographic images of the pelvis were obtained. The uterus is significantly enlarged measuring 10.4 x 5.2 x 7.9 cm with heterogeneous appearance to the myometrium, similar to prior. The endometrial stripe is normal measuring 4 mm. The ovaries demonstrate multiple small cysts bilaterally which can be seen with polycystic ovarian disease. There is no evidence of torsion. The previously noted dominant cyst in the right ovary has since resolved. IMPRESSION: No evidence of suspicious ovarian lesion with interval resolution of right ovarian cyst. Uterus enlargement. Reviewed, Interpreted and Dictated by Kaylie Wilder MD Transcribed by Amber Jin Authenticated and [facility]
== END ==
LOC: RAD 13:12
PROVIDERS: PCP Nurse Practitioner Obstetrics & Gynecology; Visit Provider Nurse Practitioner Obstetrics & Gynecology
DX: R10.2 Pelvic and perineal pain (principal); N83.201 Unspecified ovarian cyst, right side
CPT/HCPCS: 76830

== ENCOUNTER 2022-10-30 09:39 | Emergency (ER) | payer BC, SELFPAY ==
[2022-10-30 09:40] VITALS: BP 113/69; PULSE 84; RESP 18; TEMP 36.7; O2SAT 98; BMI 30.2
[2022-10-30 10:02] LABS: UTC Pregnancy Test, Urine Negative (Negative)
--- NOTE | 2022-10-30 10:07 | EXP.UTC ---
Discharge Plan Disposition Patient Disposition: Home, Self-Care Condition: Good Prescriptions Prescriptions: New ciprofloxacin HCl 0.3 % drops See Rx Instructions .ROUTE .COMPLEX Qty: 5 0RF Rx Instructions: put 1 drp in both eyes every 2hr x2days; then 4 times/day x5days No Action polyethylene glycol 3350 [Miralax] 17 gram/dose powder 17 g PO DAILY Qty: 850 0RF dorzolamide-timolol 22.3-6.8 mg/mL drops 1 drp OPHTHALMIC Referrals Follow up/Referrals: Provider,Referral, [Primary Care Provider] - See instructions Activity Restrictions/Add. Instructions Additional Instructions/Restrictions: Use the eye drops as directed. Strict hand washing in the house hold, because conjunctivitis is very contagious. Follow up with your regular doctor. GO TO THE ER FOR ANY WORSENING SYMPTOMS OR CONCERNS Clinical Impressions Clinical Impression: Bilateral conjunctivitis Instructions Patient Instructions: How to Instill Eye Drops Discharge ED Provider: Jose Manuel Chiang [facility] General Stated complaint: eyes running, glued shut this morning,itchy Mode of Arrival: Ambulatory Source of Information: Patient Limitations: No Limitations Time Seen by Provider: 10/30/22 10:07 Description of Symptoms (Recalled from Triage Doc. by RN): Patient reports that she thinks that she may have pink eye. HEENT Symptoms (Recalled from RN notes): Yes Resp Symptoms (Recalled from RN notes): No Skin Symptoms (Recalled from RN notes): No MS Symptoms (Recalled from RN notes): No Functional Status (Recalled from RN notes): wnl History of Present Illness Provider Complaint: She states that for the past 2 days she has been having bilateral eye irritation and discharge. She denies any injury or foreign body Related Data Home Medications Medication Instructions Recorded Confirmed dorzolamide 22.3 mg-timolol 6.8 1 drp ophthalmic (eye) 06/15/21 09/15/22 mg/mL eye drops Previous Rx's Medication Instructions Recorded polyethylene glycol 3350 17 17 g PO DAILY #850 grams 09/15/22 gram/dose oral powder (Miralax) ciprofloxacin HCl 0.3 % eye drops See Rx Instructions ophthalmic 10/30/22 (eye) .COMPLEX #5 mL Allergies Allergy/AdvReac Type Severity Reaction Status Date / Time No Known Drug Allergies Allergy Unknown -- Verified 04/20/23 08:34 Worker's Comp Is this a Worker's Comp case?: No [facility] Disclaimer: The information contained in this section may have been updated after the patient was seen, as this information can be updated by other users. Surgical History Hx of cataract surgery Hx of wisdom tooth extraction Social History Smoking Status: Former smoker second hand exposure: No alcohol intake: current current occupational status: employed Travel in the last 8 weeks: None ROS Obtained: Yes All systems reviewed & no additional complaints except as documented Constitutional Constitutional: Denies chills and Denies fever(s) Eyes Eyes: Reports eye discharge ENT Ears, Nose, Mouth, and Throat: Denies dizziness, Denies otalgia and Denies sore throat Cardiovascular Cardiovascular: Denies chest pain Respiratory Respiratory: Denies shortness of breath, Denies chest congestion, Denies cough, Denies stridor and Denies wheezing Gastrointestinal Gastrointestingal: Denies nausea or vomiting Musculoskeletal Musculoskeletal: Reports system reviewed and no additional complaints, except as documented and Denies arthralgias Integumentary/Breasts Skin/Breast: Denies rash Neurologic Neurologic: Denies dizziness and Denies paresthesias Allergic/Immunologic Allergic/Immunologic: Denies wheezing Physical Exam General General appearance: alert and in no apparent distress Head Head exam: atraumatic, normocephalic and normal inspection Eye Eye exam: Present PERRL, EOMI, conjunctival rednes
[2022-10-30 10:54] VITALS: BP 113/69; PULSE 84; RESP 18; TEMP 36.7; O2SAT 98
== END 2022-10-30 10:56 | disposition home or self-care (01) ==
PROVIDERS: Emergency Provider Nurse Practitioner Family
DX: H10.33 Unspecified acute conjunctivitis, bilateral (principal); Z87.891 Personal history of nicotine dependence
CPT/HCPCS: 81025; 99212; 99214; G0463

== ENCOUNTER 2023-03-28 19:47 | Emergency (ER) | payer BC, SELFPAY ==
[2023-03-28 19:48] VITALS: BP 148/98; PULSE 89; RESP 20; TEMP 36.8; O2SAT 99; BMI 30.2
--- NOTE | 2023-03-28 20:31 | XR_ITS ---
PROCEDURE INFORMATION: Exam: XR Right Foot Exam date and time: 03/28/2023 8:52 PM Age: 27 years old Clinical indication: Injury or trauma; Other: Stepped on small nail; Puncture; Foot; Right; Foreign body involvement not specified; Additional info: Stepped on nail TECHNIQUE: Imaging protocol: Radiologic exam of the right foot. Views: 3 or more views. COMPARISON: No relevant prior studies available. FINDINGS: Bones/joints: Normal. Soft tissues: Normal. IMPRESSION: No acute findings.
--- NOTE | 2023-03-28 20:32 | HMH.EDGENADL ---
Discharge Plan Disposition Patient Disposition: Home, Self-Care Prescriptions Prescriptions: New cephalexin 500 mg capsule 500 mg PO QID 5 Days Qty: 20 0RF No Action dorzolamide-timolol 22.3-6.8 mg/mL drops 1 drp OPHTHALMIC Classic 28 mg iron- 800 mcg tablet 1 tab PO DAILY Qty: 30 11RF Referrals Follow up/Referrals: Donnie Yeh MD [Primary Care Provider] - See instructions Activity Restrictions/Add. Instructions Additional Instructions/Restrictions: Return with any worsening redness pus coming from wound or other concerns. Clinical Impressions Clinical Impression: Puncture wound of foot Discharge ED Provider: Margarette Banks General Adult HPI General Chief complaint: Extremity Injury, Lower Stated complaint: Nails in right foot Time Seen by Provider: 03/28/23 20:28 Mode of Arrival: Ambulatory Source of Information: Patient Limitations: No Limitations Description of Symptoms (Recalled from ER Triage Doc. by RN): Pt states she stepped on a piece of wood from an old rocking chair that broke which had nails in it. Pucnture to right heel of foot. Last tetanus shot <5yrs. History of Present Illness HPI narrative: Patient is a 27-year-old female presenting today with a penetrating wound to the plantar aspect of her right foot after stepping on 3 small nails that were extending out from a rocking chair. She believes that the entire nails were able to be pulled out which are about half an inch in length. This did not penetrate through a shoe and only went through her sock. She did state that the nails however were old and dirty. She is up-to-date on tetanus vaccinations. Related Data Home Medications Medication Instructions Recorded Confirmed dorzolamide 22.3 mg-timolol 6.8 1 drp ophthalmic (eye) 06/15/21 01/04/23 mg/mL eye drops Previous Rx's Medication Instructions Recorded vits no.126-ferrous fum 1 tab PO DAILY #30 tabs 01/04/23 28 mg iron-folic acid 800 mcg tablet (Classic ) cephalexin 500 mg capsule 500 mg PO QID 5 days #20 caps 03/28/23 Allergies Allergy/AdvReac Type Severity Reaction Status Date / Time No Known Drug Allergies Allergy Unknown -- Verified 01/04/23 13:22 [facility] Disclaimer: The information contained in this section may have been updated after the patient was seen, as this information can be updated by other users. Surgical History Hx of cataract surgery Hx of wisdom tooth extraction Social History Smoking Status: Never smoker second hand exposure: No alcohol intake: current current occupational status: employed Travel in the last 8 weeks: None ROS Obtained: Yes All systems reviewed & no additional complaints except as documented Physical Exam General General appearance: alert Respiratory Respiratory exam: Present normal lung sounds bilaterally Cardiovascular Cardiovascular exam: Present regular rate; Absent tachycardia Extremities Exam Extremities exam: Present other (3 small punctate penetrating wounds less than 1 mm in length on the plantar aspect of the right foot no surrounding erythema swelling or fluctuance no bony abnormalities or soft tissue swelling) Neurological Exam Neurological exam: Present alert and oriented X3 Medical Decision Making Chinedu Inquiry Pt receiving controlled substance: No Vital Signs: 03/28/23 19:48 Temperature 98.2 F Temperature Source Oral Pulse Rate [Left] 89 Respiratory Rate 20 Blood Pressure [Right Arm] 148/98 H Blood Pressure Mean [Right Arm] 114 Blood Pressure Source [Right Arm] Automatic Cuff Blood Pressure Position [Right Arm] Sitting 02 Sat by Pulse Oximetry 99 Oxygen Delivery Method Room Air Orders (Tests/Meds): ED MEDICATIONS Discontinued Medications Generic Name Dose Route Start Last Admin Trade Name Freq PRN Reason Stop Dos
[2023-03-28 21:11] VITALS: BP 118/78; PULSE 88; RESP 16; TEMP 36.7; O2SAT 99
== END 2023-03-28 21:14 | disposition home or self-care (01) ==
PROVIDERS: Emergency Provider Student in an Organized Health Care Education/Training Program; PCP Nurse Practitioner Obstetrics & Gynecology
DX: S91.331A Puncture wound without foreign body, right foot, initial encounter (principal); W45.0XXA Nail entering through skin, initial encounter
CPT/HCPCS: 73630; 99283

== ENCOUNTER → 2023-03-30 12:50 | Outpatient (CLI) | payer BC, SELFPAY ==
[2023-03-30 14:10] LABS: HCG,Quantitative < 2 mIU/ml (0-5.42)
[2023-03-31 10:17] LABS: Progesterone 0.4 ng/mL (.)
== END ==
PROVIDERS: Visit Provider Nurse Practitioner Obstetrics & Gynecology
DX: N92.6 Irregular menstruation, unspecified (principal)
CPT/HCPCS: 36415; 84144; 84702

== ENCOUNTER 2023-03-30 13:07 | Emergency (ER) | payer BC, SELFPAY ==
--- NOTE | 2023-03-30 13:22 | XR_ITS ---
FINAL REPORT CLINICAL HISTORY: pain FINDINGS: Right ankle Three views were obtained. There is no acute fracture or dislocation. The joint spaces appear normal. There is lateral soft tissue swelling. IMPRESSION: No acute process. Reviewed, Interpreted and Dictated by Blaise Parks III, MD Transcribed by Amber Jin Authenticated and [facility]
--- NOTE | 2023-03-30 13:22 | XR_ITS ---
FINAL REPORT CLINICAL HISTORY: pain stepped on 3 nails Kenyatta (03/28/23) COMPARISON: 03/28/2023 FINDINGS: Right foot Three views were obtained. There is no acute fracture or dislocation. The joint spaces appear normal. No soft tissue abnormality is identified. No foreign body is identified. IMPRESSION: No acute process. Reviewed, Interpreted and Dictated by Blaise Parks III, MD Transcribed by Amber Jin Authenticated and [facility]
[2023-03-30 13:35] VITALS: BP 120/80; PULSE 79; RESP 20; TEMP 36.8; O2SAT 99; BMI 30.2
[2023-03-30 13:42] LABS: UTC Pregnancy Test, Urine Negative (Negative)
--- NOTE | 2023-03-30 13:58 | EXP.UTC ---
Discharge Plan Disposition Patient Disposition: Home, Self-Care Condition: Good Prescriptions Prescriptions: No Action dorzolamide-timolol 22.3-6.8 mg/mL drops 1 drp OPHTHALMIC Classic 28 mg iron- 800 mcg tablet 1 tab PO DAILY Qty: 30 11RF cephalexin 500 mg capsule 500 mg PO QID 5 Days Qty: 20 0RF Referrals Follow up/Referrals: Provider,Referral, MD [Primary Care Provider] - See instructions Activity Restrictions/Add. Instructions Additional Instructions/Restrictions: Keep wound area clean and dry Watch for signs of infection including but not limited to redness, swelling, warmth, drainage etc follow up immediately if any seen Continue prescribed antibiotics that you was prescribed in the Emergency Room and instructions given there Your foot will be sore for several days and will take time to heal Clinical Impressions Clinical Impression: Puncture wound of foot Qualifiers: Encounter type: subsequent encounter Laterality: left Qualified Code(s): S91.332D - Puncture wound without foreign body, left foot, subsequent encounter Stand Alone Forms Stand Alone Forms: Work/School Release Instructions Patient Instructions: DI for Puncture Wound Discharge ED Provider: Salma Anderson [facility] General Stated complaint: AO10/31@home, pain in Rt foot Mode of Arrival: Ambulatory Source of Information: Patient Limitations: No Limitations Time Seen by Provider: 03/30/23 13:58 Description of Symptoms (Recalled from Triage Doc. by RN): PATIENT C/O RIGHT FOOT PAIN AFTER INJURING IT MONDAY NIGHT HEENT Symptoms (Recalled from RN notes): No Resp Symptoms (Recalled from RN notes): No Skin Symptoms (Recalled from RN notes): No MS Symptoms (Recalled from RN notes): Yes Functional Status (Recalled from RN notes): WNL History of Present Illness Provider Complaint: Patient states that she stepped on three small nails on Monday from a broken rocking chair that went into the bottom of her right foot States that she has been having pain in her foot ever since and now ankle was starting to hurt from the way she was walking and wanted to get it looked at Related Data Home Medications Medication Instructions Recorded Confirmed dorzolamide 22.3 mg-timolol 6.8 1 drp ophthalmic (eye) 06/15/21 01/04/23 mg/mL eye drops Previous Rx's Medication Instructions Recorded vits no.126-ferrous fum 1 tab PO DAILY #30 tabs 01/04/23 28 mg iron-folic acid 800 mcg tablet (Classic ) cephalexin 500 mg capsule 500 mg PO QID 5 days #20 caps 03/28/23 Allergies Allergy/AdvReac Type Severity Reaction Status Date / Time No Known Drug Allergies Allergy Unknown -- Verified 01/04/23 13:22 Worker's Comp Is this a Worker's Comp case?: No [facility] Disclaimer: The information contained in this section may have been updated after the patient was seen, as this information can be updated by other users. Surgical History Hx of cataract surgery Hx of wisdom tooth extraction Social History Smoking Status: Never smoker second hand exposure: No alcohol intake: current current occupational status: employed Travel in the last 8 weeks: None ROS Obtained: Yes All systems reviewed & no additional complaints except as documented and Yes Systems reviewed as appropriate & no additional complaints except as documented Constitutional Constitutional: Reports system reviewed and no additional complaints, except as documented and Reports as per HPI ENT Ears, Nose, Mouth, and Throat: Reports system reviewed and no additional complaints, except as documented and Reports as per HPI Cardiovascular Cardiovascular: Reports system reviewed and no additional complaints, except as documented and Reports as per HPI Respiratory Respiratory: Reports system reviewed and no additional complaints, except as documented
[2023-03-30 14:28] VITALS: BP 120/80; PULSE 79; RESP 20; TEMP 36.8; O2SAT 99
== END 2023-03-30 14:30 | disposition home or self-care (01) ==
PROVIDERS: Emergency Provider Nurse Practitioner
DX: S91.331A Puncture wound without foreign body, right foot, initial encounter; W45.0XXA Nail entering through skin, initial encounter
CPT/HCPCS: 73610; 73630; 81025; 99212; 99213; G0463

== ENCOUNTER → 2023-04-25 13:46 | Outpatient (CLI) | payer BC, SELFPAY ==
--- NOTE | 2023-04-25 13:47 | US_ITS ---
PROCEDURE: US TRANSVAGINAL CLINICAL INDICATION: abnormal menses COMPARISON: No exams were available for comparison FINDINGS: Transvaginal sonographic images of the pelvis were obtained. UTERUS: 10.0 cm x 6.3 cmx 5.2 cm the anteverted with a combined endometrial thickness of 8.6mm. There is a small nabothian cyst within the cervix. LEFT OVARY: 2.7 cmx2.9 cmx2.9cm with a volume of 11.9ml. There are multiple small follicles in the periphery of the left ovary. Ring of pearls in appearance. RIGHT OVARY: 4.72x 3.0 cmx3.2 cm with a volume of 16.7ml. There is a dominant follicle in the right ovary measuring 2.2 cm x 1.7 cm x 2.0 cm. There are multiple small follicles within the ovary. Both ovaries are seen and appear polycystic. Doppler flow to both ovaries are seen. There is no fluid in the cul-de-sac. IMPRESSION: 1. Anteverted, bulky uterus. The endometrium appears normal. 2. Both ovaries have a polycystic appearance. 3. There is a dominant follicle in the right ovary measuring 2.2 cm. 4. No fluid in the cul-de-sac. Dictated by: Donnie Yeh MD 04/25/2023 14:51 Donnie Yeh MD in OV 04/25/2023 14:51
== END ==
LOC: RAD 13:47
PROVIDERS: PCP Physician Assistant; Visit Provider Nurse Practitioner Obstetrics & Gynecology
DX: N92.6 Irregular menstruation, unspecified (principal)
CPT/HCPCS: 76830

== ENCOUNTER 2023-07-08 16:48 | Emergency (ER) | payer BC, SELFPAY ==
[2023-07-08 17:30] VITALS: BP 119/79; PULSE 88; RESP 21; TEMP 36.9; O2SAT 100; BMI 30.2
--- NOTE | 2023-07-08 17:37 | ED_ITS ---
Discharge Plan Disposition Patient Disposition: Home, Self-Care Condition: Good Prescriptions Prescriptions: New amoxicillin [amoxicillin] 875 mg tablet 875 mg PO Q12H Qty: 20 0RF ebqrbhmatwvckqi-hdrsrhagx-TF [Bromfed DM] 2-30-10 mg/5 mL Syrup 5 ml PO Q6H PRN (Reason: Cough) Qty: 240 0RF prednisone [prednisone] 20 mg tablet 20 mg PO BID 3 Days Qty: 6 0RF No Action amoxicillin 875 mg tablet 875 mg PO BID Qty: 20 0RF dorzolamide-timolol 22.3-6.8 mg/mL drops 1 drp OPHTHALMIC Referrals Follow up/Referrals: Pantera Macdonald DO [Primary Care Provider] - See instructions Activity Restrictions/Add. Instructions Additional Instructions/Restrictions: Drink plenty of fluids. Take tylenol or ibuprofen for pain or fever. Take the medications as directed. Follow up with your regular doctor. GO TO THE ER FOR ANY WORSENING SYMPTOMS Clinical Impressions Clinical Impression: Otitis media Stand Alone Forms Stand Alone Forms: Work/School Release Instructions Patient Instructions: Middle Ear Infection Discharge ED Provider: Jose Manuel Chiang [facility] General Stated complaint: both ears hurt Time Seen by Provider: 07/08/23 17:37 History of Present Illness Provider Complaint: She states that for the past 2 days she has had fever, chills, bilateral ear pain and malaise. Related Data Home Medications Medication Instructions Recorded Confirmed dorzolamide 22.3 mg-timolol 6.8 1 drp ophthalmic (eye) 06/15/21 06/27/23 mg/mL eye drops Previous Rx's Medication Instructions Recorded amoxicillin 875 mg tablet 875 mg PO BID #20 tabs 06/27/23 amoxicillin 875 mg tablet 875 mg PO Q12H #20 tabs 07/08/23 zmkrjokomolziau-xyzqvfodaeqbtjl-OI 5 ml PO Q6H PRN Cough #240 mL 07/08/23 2 mg-30 mg-10 mg/5 mL oral syrup (Bromfed DM) prednisone 20 mg tablet 20 mg PO BID 3 days #6 tabs 07/08/23 Allergies Allergy/AdvReac Type Severity Reaction Status Date / Time No Known Drug Allergies Allergy Unknown -- Verified 06/27/23 13:28 [facility] Disclaimer: The information contained in this section may have been updated after the patient was seen, as this information can be updated by other users. Medical History Cataract Obesity Surgical History Hx of cataract surgery Hx of wisdom tooth extraction Family History Other No significant family history Social History Smoking Status: Never smoker second hand exposure: No alcohol intake: current current occupational status: employed Travel in the last 8 weeks: None ROS Obtained: Yes All systems reviewed & no additional complaints except as documented Constitutional Constitutional: Denies chills, Reports fever(s) and Reports poor appetite Eyes Eyes: Denies eye discharge ENT Ears, Nose, Mouth, and Throat: Denies ear discharge, Reports otalgia, Denies hearing loss, Denies sinus pain and Reports sore throat Cardiovascular Cardiovascular: Denies chest pain and Denies dyspnea Respiratory Respiratory: Denies chest congestion, Reports cough and Denies dyspnea Gastrointestinal Gastrointestingal: Denies abdominal pain, diarrhea, nausea or vomiting Musculoskeletal Musculoskeletal: Denies arthralgias Integumentary/Breasts Skin/Breast: Denies rash Physical Exam General General appearance: alert and in no apparent distress Head Head exam: atraumatic, normocephalic and normal inspection Eye Eye exam: Present normal appearance; Absent PERRL or EOMI ENT ENT exam: Present mucous membranes moist and normal external ear exam Expanded ENT Exam TM/Canal exam: Bilateral TM: erythema, bulging and effusion Nose exam: Absent sinus tenderness Nasal speculum exam: Bilateral: normal Mouth exam: Present normal external inspection and other; Absent drooling Teeth exam: Present normal inspection Throat exam: Present tonsillar erythema and tonsillomegaly Neck Neck exam: Present normal inspection, full ROM and trachea midline; Absent tenderness, meningismus or lymphadenopathy Chest Chest inspection: Present normal inspection and symmetric chest wall rise; Absent tenderness Respiratory Respiratory exam: Present normal lung sounds bilaterally; Absent respiratory distress, wheezes or stridor Cardiovascular Cardiovascular exam: Present regular rate, normal rhythm and normal heart sounds; Absent tachycardia or irregular rhythm Abdominal Exam Abdominal exam: Present soft and normal bowel sounds; Absent distention, tenderness, guarding, rebound or rigidity Extremities Exam Extremities exam: Present normal inspection and normal capillary refill; Absent tenderness, joint swelling or calf tenderness Back Exam Back exam: Present normal inspection and full ROM; Absent tenderness, CVA tenderness (R) or CVA tenderness (L) Neurological Exam Neurological exam: Present alert, oriented X3, CN II-XII intact, normal gait and reflexes normal; Absent motor sensory deficit Psychiatric Psychiatric exam: Present normal affect and normal mood Skin Skin exam: Present warm, dry, intact and normal color Lymphatic Lymphatic Findings: no adenopathy Medical Decision Making Medical Records Medical records reviewed: No I reviewed the patient's medical records. Chinedu Inquiry Pt receiving controlled substance: No
[2023-07-08 18:10] VITALS: BP 119/79; PULSE 88; RESP 21; TEMP 36.9; O2SAT 100
== END 2023-07-08 18:24 | disposition home or self-care (01) ==
PROVIDERS: Emergency Provider Nurse Practitioner Family; PCP Internal Medicine
DX: H66.93 Otitis media, unspecified, bilateral (principal); R50.9 Fever, unspecified; R53.81 Other malaise
CPT/HCPCS: 99212; 99214; G0463

== ENCOUNTER 2023-07-25 15:26 | Emergency (ER) | payer BC, SELFPAY ==
[2023-07-25 15:30] VITALS: BP 127/78; PULSE 82; RESP 20; TEMP 36.8; O2SAT 100; BMI 29.2
[2023-07-25 15:55] VITALS: BP 127/78; PULSE 82; RESP 20; TEMP 36.8; O2SAT 100
--- NOTE | 2023-07-25 15:56 | EXP.UTC ---
Discharge Plan Disposition Patient Disposition: Home, Self-Care Condition: Good Prescriptions Prescriptions: New amoxicillin-pot clavulanate 875-125 mg Tablet 1 tab PO Q12H Qty: 20 0RF ofloxacin 0.3 % drops 10 drp otic (ear) Q12H 14 Days Qty: 20 0RF Rx Instructions: In left ear as directed No Action dorzolamide-timolol 22.3-6.8 mg/mL drops 1 drp OPHTHALMIC Referrals Follow up/Referrals: Pantera Macdonald DO [Primary Care Provider] - See instructions Activity Restrictions/Add. Instructions Additional Instructions/Restrictions: Make sure to eat some Yogurt or take Over the counter Probiotic to help prevent gut issues and upset Take medication as prescribed and use drops as prescribed Follow up with your Family Doctor if no improvement or any worsening of symptoms Clinical Impressions Clinical Impression: Otitis media Qualifiers: Otitis media type: unspecified Laterality: left Qualified Code(s): H66.92 - Otitis media, unspecified, left ear Instructions Patient Instructions: Middle Ear Infection, How to Instill Ear Drops Discharge ED Provider: Salma Anderson [facility] General Stated complaint: ear ache Mode of Arrival: Ambulatory Source of Information: Patient Limitations: No Limitations Time Seen by Provider: 07/25/23 15:56 Description of Symptoms (Recalled from Triage Doc. by RN): PATIENT C/O BILATERAL EAR PAIN. SHE STATES SHE WAS TREATED FOR AND EAR INFECTION WITH AMOXICILLIN APPROX 2 WEEKS AGO BUT STATES IT HAS GOTTEN WORSE HEENT Symptoms (Recalled from RN notes): Yes Resp Symptoms (Recalled from RN notes): No Skin Symptoms (Recalled from RN notes): No MS Symptoms (Recalled from RN notes): No Functional Status (Recalled from RN notes): WNL History of Present Illness Provider Complaint: Patient states that she was seen and treated a few weeks ago for bilateral ear infection States that she has continued to have pain in both ears Right seems to be a little better but left feels worse so today she came in to get checked Related Data Home Medications Medication Instructions Recorded Confirmed dorzolamide 22.3 mg-timolol 6.8 1 drp ophthalmic (eye) 06/15/21 07/20/23 mg/mL eye drops Previous Rx's Medication Instructions Recorded amoxicillin 875 mg-potassium 1 tab PO Q12H #20 tabs 07/25/23 clavulanate 125 mg tablet ofloxacin 0.3 % ear drops 10 drp otic (ear) Q12H 14 days #20 07/25/23 mL Allergies Allergy/AdvReac Type Severity Reaction Status Date / Time No Known Drug Allergies Allergy Unknown -- Verified 07/20/23 14:23 Worker's Comp Is this a Worker's Comp case?: No [facility] Disclaimer: The information contained in this section may have been updated after the patient was seen, as this information can be updated by other users. Medical History Cataract Obesity Surgical History Hx of cataract surgery Hx of wisdom tooth extraction Family History Other No significant family history Social History Smoking Status: Never smoker second hand exposure: No alcohol intake: current current occupational status: employed Travel in the last 8 weeks: None ROS Obtained: Yes All systems reviewed & no additional complaints except as documented and Yes Systems reviewed as appropriate & no additional complaints except as documented Constitutional Constitutional: Reports system reviewed and no additional complaints, except as documented and Reports as per HPI ENT Ears, Nose, Mouth, and Throat: Reports system reviewed and no additional complaints, except as documented, Reports as per HPI and Reports otalgia Cardiovascular Cardiovascular: Reports system reviewed and no additional complaints, except as documented and Reports as per HPI Respiratory Respiratory: Reports system reviewed and no additional complaints, except as documented and Reports as per HPI Gastrointestinal Gastrointestingal: Reports system reviewed and no additional complaints, except as documented and as per HPI Physical Exam General General appearance: alert and in no apparent distress ENT ENT exam: Present mucous membranes moist and other (right no redness noted) Expanded ENT Exam TM/Canal exam: Left TM: erythema and bulging Respiratory Respiratory exam: Present normal lung sounds bilaterally; Absent respiratory distress or wheezes Cardiovascular Cardiovascular exam: Present regular rate, normal rhythm and normal heart sounds Neurological Exam Neurological exam: Present alert, oriented X3 and normal gait Medical Decision Making Chinedu Inquiry Pt receiving controlled substance: No Chinedu was queried for this patient: No Vital Signs: 07/25/23 15:30 07/25/23 15:55 Temperature 98.3 F 98.3 F Temperature Source Oral Pulse Rate 82 Pulse Rate [Right Brachial] 82 Respiratory Rate 20 20 Blood Pressure 127/78 Blood Pressure [Right Arm] 127/78 Blood Pressure Mean [Right Arm] 94 Blood Pressure Source [Right Arm] Automatic Cuff Blood Pressure Position [Right Arm] Sitting 02 Sat by Pulse Oximetry 100 Oxygen Delivery Method Room Air Medical Decision Narrative: Patient was recently on amoxil for bilateral otitis media but not feeling any better will prescribe Augmentin due to treatment failure of Amoxil within last 30 days
== END 2023-07-25 16:05 | disposition home or self-care (01) ==
PROVIDERS: Emergency Provider Nurse Practitioner; PCP Internal Medicine
DX: H66.92 Otitis media, unspecified, left ear (principal)
CPT/HCPCS: 99212; 99214; G0463

== ENCOUNTER 2023-09-11 11:55 | Emergency (ER) | payer BC, SELFPAY ==
--- NOTE | 2023-09-11 11:57 | ECG_ITS ---
APPROVED REPORT Exam: Resting ECG HR:81 bpm ECG Measurements Heart Rate 81 AXES NC 144 P 66 QRSd 88 QRS 46 QT 370 T 27 QTc 407 Conclusion SINUS RHYTHM WITH SINUS ARRHYTHMIA NORMAL ECG UNCONFIRMED REPORT Electronically signed by : GERHARD JANE, 09/11/2023 16:13:25
[2023-09-11 12:01] VITALS: BP 122/80; PULSE 84; RESP 20; TEMP 36.8; O2SAT 100; BMI 29.2
--- NOTE | 2023-09-11 12:03 | XR_ITS ---
FINAL REPORT TECHNIQUE: Chest PA & Lateral CLINICAL HISTORY: Midsternal chest pain FINDINGS: 2 views of the chest were performed. The heart size is normal. The mediastinum is within normal limits. There is no acute cardiopulmonary process. There are no pleural effusions. There is no pneumothorax. The bony thorax appears intact. IMPRESSION: No acute cardiopulmonary process. Reviewed, Interpreted and Dictated by Emil Garcia MD Transcribed by Cristela Caro Authenticated and [facility]
--- NOTE | 2023-09-11 12:04 | HMH.EDGENADL ---
Discharge Plan Disposition Patient Disposition: Home, Self-Care Condition: Good Prescriptions Prescriptions: No Action dorzolamide-timolol 22.3-6.8 mg/mL drops 1 drp OPHTHALMIC amoxicillin-pot clavulanate 875-125 mg Tablet 1 tab PO Q12H Qty: 20 0RF ofloxacin 0.3 % drops 10 drp otic (ear) Q12H 14 Days Qty: 20 0RF Rx Instructions: In left ear as directed Referrals Follow up/Referrals: Pantera Macdonald DO [Primary Care Provider] - See instructions Activity Restrictions/Add. Instructions Additional Instructions/Restrictions: You have been evaluated in the ED for your complaints. You may follow-up with your PCP in the next 3 to 5 days. Please return to ED for any new or worsening symptoms. As discussed, you may take Tylenol and ibuprofen as needed for your myalgias and chest discomfort if needed. Clinical Impressions Clinical Impression: Chest pain, unspecified, Myalgia Stand Alone Forms Stand Alone Forms: Work/School Release Discharge ED Provider: Marquise Montejo Adult HPI General Chief complaint: Chest Pain Stated complaint: Chest Pain Time Seen by Provider: 09/11/23 11:57 History of Present Illness HPI narrative: 28-year-old female with past medical history significant for cataracts, presents today for evaluation concerning central chest pain which she states has been intermittent over the past several days. States that chest pain occurs at rest or with activity and also notices pain with eating at times. Characterized as sharp and sometimes burning and does not radiate. Has been taking Tums to assist with minimal relief. She states that has not had any fevers, chills, cough, congestion, abdominal pain. She is currently on her menstrual cycle. She is not on control. No other complaints Related Data Home Medications Medication Instructions Recorded Confirmed dorzolamide 22.3 mg-timolol 6.8 1 drp ophthalmic (eye) 06/15/21 07/20/23 mg/mL eye drops Previous Rx's Medication Instructions Recorded amoxicillin 875 mg-potassium 1 tab PO Q12H #20 tabs 07/25/23 clavulanate 125 mg tablet ofloxacin 0.3 % ear drops 10 drp otic (ear) Q12H 14 days #20 07/25/23 mL Allergies Allergy/AdvReac Type Severity Reaction Status Date / Time No Known Drug Allergies Allergy Unknown -- Verified 07/20/23 14:23 [facility] Disclaimer: The information contained in this section may have been updated after the patient was seen, as this information can be updated by other users. Medical History Cataract Obesity Surgical History Hx of cataract surgery Hx of wisdom tooth extraction Family History Other No significant family history Social History Smoking Status: Never smoker second hand exposure: No alcohol intake: current current occupational status: employed Travel in the last 8 weeks: None ROS Obtained: Yes All systems reviewed & no additional complaints except as documented Physical Exam General General appearance: alert and in no apparent distress Head Head exam: atraumatic and normocephalic Eye Eye exam: Present normal appearance, PERRL and EOMI ENT ENT exam: Present normal oropharynx and mucous membranes moist Neck Neck exam: Present full ROM; Absent meningismus Respiratory Respiratory exam: Absent respiratory distress, wheezes, stridor or accessory muscle use Cardiovascular Cardiovascular exam: Present normal rhythm Abdominal Exam Abdominal exam: Present soft; Absent distention, tenderness, guarding, rebound or rigidity Neurological Exam Neurological exam: Present alert, oriented X3 and CN II-XII intact; Absent motor sensory deficit Psychiatric Psychiatric exam: Present normal affect and normal mood Skin Skin exam: Present warm and dry Medical Decision Making Medical Records Medical records reviewed: Yes I reviewed the patient's medical records. Chinedu Inquiry Pt receiving controlled substance: No Chinedu was queried for this patient: No Vital Signs: 09/11/23 12:01 09/11/23 13:09 09/11/23 14:00 Temperature 98.2 F Temperature Source Oral Pulse Rate 60 70 Pulse Rate [Left Radial] 84 Respiratory Rate 20 13 16 Blood Pressure 108/68 L 113/68 Blood Pressure [Right Arm] 122/80 Blood Pressure Mean [Right Arm] 94 02 Sat by Pulse Oximetry 100 100 98 Lab Data Lab Results 09/11/23 12:00: WBC 5.4, RBC 4.64, Hgb 12.6, Hct 39.9, MCV 85.9, MCH 27.1, MCHC 31.5 L, RDW 14.0, Plt Count 330, MPV 7.3 L, Neut % (Auto) 55.9, Lymph % (Auto) 32.1, [place] % (Auto) 7.0, Eos % (Auto) 3.7, Baso % (Auto) 1.3, Neut # (Auto) 3.0, Lymph # (Auto) 1.7, [place] # (Auto) 0.4, Eos # (Auto) 0.2, Baso # (Auto) 0.1, Sodium 143, Potassium 4.0, Chloride 109 H, Carbon Dioxide 30, Anion Gap 8.0, BUN 11, Creatinine 0.80, Estimated Creat Clear 119, Estimated GFR 85, Est GFR ( Amer) 103, Glucose 95, Calcium 9.3, Total Bilirubin 0.5, AST 43 H, ALT 36, Alkaline Phosphatase 94, Total Creatine Kinase 65, Troponin I < 0.01, Total Protein 7.5, Albumin 4.0, Globulin 3.5 H, Albumin/Globulin Ratio 1.1 09/11/23 12:03: SARS-CoV-2 (PCR) Not detected, Influenza A Untype (PCR) Not detected, Influenza Type B (PCR) Not detected 09/11/23 13:47: Troponin I < 0.01 09/11/23 12:00 09/11/23 12:00 Orders (Tests/Meds): ED MEDICATIONS Discontinued Medications Generic Name Dose Route Start Last Admin Trade Name Freq PRN Reason Stop Dose Admin Morphine Sulfate 4 mg 09/11/23 12:03 09/11/23 12:30 Morphine 4mg/Ml Syringe IV 09/11/23 12:04 4 mg ONCE ONE Administration Ondansetron HCl 4 mg 09/11/23 12:03 09/11/23 12:30 Ondansetron 4mg/2ml Vial IV 09/11/23 12:04 4 mg ONCE ONE Administration ORDERS Category Date Time Status CXR 2 view (NOT portable) [XR chest 2V] Stat Exams 09/11/23 12:03 Completed CBC w/Auto Diff [Complete Blood Count Auto Diff] Stat Lab 09/11/23 12:00 Completed CK [Creatine Kinase] Stat Lab 09/11/23 12:00 Completed CMP [Comprehensive Metabolic Panel] Stat Lab 09/11/23 12:00 Completed Rapid PCR Covid and Flu A/B Stat Lab 09/11/23 12:03 Completed Trop I [Troponin I] Stat Lab 09/11/23 12:00 Completed Troponin I Q3H Lab 09/11/23 13:47 Completed Troponin I Q3H Lab 09/11/23 18:15 Ordered ECG Data Tracing #1: I reviewed this ECG and interpreted as documented below: EKG personally interpreted by me. Sinus rhythm with sinus arrhythmia with a rate of 81 bpm. No ischemic changes. HEART Score History (anamnesis): Slightly suspicious ECG: Normal Age: <45 years Risk factors: No known risk factors Troponin: </= normal limit HEART Score: 0 Medical Decision Narrative: 28-year-old female with past medical history significant for cataracts, presents today for evaluation concerning central chest pain which she states has been intermittent over the past several days. States that chest pain occurs at rest or with activity and also notices pain with eating at times. Characterized as sharp and sometimes burning and does not radiate. Has been taking Tums to assist with minimal relief. She also states that she has been having myalgias. On assessment, she was medically stable and in no acute distress. Afebrile. Chest clear to auscultation bilaterally. Abdomen soft nondistended nontender palpation. There were no skin changes on patient's chest and no chest wall tenderness palpation. Otherwise exam is unremarkable for diagnoses include not limited to ACS, pleural effusion, pneumonia, costochondritis, viral syndrome, among others No elevation in WBC today at 5.4. Initial and second troponin less than 0.01. AST 43. Negative COVID and influenza swab. Other labs nonactionable. Chest x-ray did not show any acute cardiopulmonary disease process. EKG did not show any ischemic changes. On reassessment treatment HD stable and in no acute distress. Her symptoms were improved after morphine and Zofran. I discussed ED workup and results and current plan to discharge home with supportive care measures. Also instructed patient to follow-up with her PCP and provided with return ED precautions and signs and symptoms to watch for. She verbalized understanding and agreement with plan. She was subsequently discharged home helically stable and in no acute distress. Critical Care Critical Care Time Critical Care Time: No
[2023-09-11 12:12] LABS: Chloride 109 mmol/L (98-107); Sodium 143 mmol/L (136-145)
[2023-09-11 12:15] LABS: Alanine Aminotransferase 36 U/L (12-78); Albumin/Globulin Ratio 1.1 (1.1-1.8); Alkaline Phosphatase 94 U/L (38-126); Aspartate Amino Transferase 43 U/L (14-36); Bilirubin,Total 0.5 mg/dl (0.2-1.3); Blood Urea Nitrogen 11 mg/dl (7-17); Calcium 9.3 mg/dl (8.4-10.2); Carbon Dioxide 30 mmol/L (22.0-30.0); Creatine Kinase 65 U/L (30-135); Creatinine Clearance Estimated 119 mL/min (50-200); Estimated Glomerular Filt Rate 85 ml/min (>60); GFR (African American) 103 ML/MIN (>60); Globulin 3.5 g/dL (1.3-3.2); Glucose 95 mg/dl (74-100); Total Protein,Serum 7.5 g/dl (6.3-8.2)
[2023-09-11 12:20] LABS: Basophils # 0.1 K/mm3 (0-0.2); Basophils % 1.3 % (0.1-2.0); Eosinophils # 0.2 K/mm3 (0.0-0.4); Eosinophils % 3.7 % (0.1-12.0); Hematocrit 39.9 % (37.0-47.0); Hemoglobin 12.6 g/dL (12.2-16.2); Lymphocytes # 1.7 K/mm3 (0.7-4.5); Lymphocytes % 32.1 % (10-50); Mean Corpuscular HGB Conc 31.5 g/dL (31.8-35.4); Mean Corpuscular Hemoglobin 27.1 pg (27.0-31.2); Mean Corpuscular Volume 85.9 fl (81-99); Mean Platelet Volume 7.3 fl (7.4-10.4); Monocytes # 0.4 K/mm3 (0.1-1.0); Neutrophils % 55.9 % (37.0-80.0); Platelet Count 330 K/mm3 (142-424); Red Blood Count 4.64 M/mm3 (4.20-5.40); White Blood Count 5.4 K/mm3 (4.8-10.8)
[2023-09-11 12:29] LABS: Troponin I < 0.01 ng/ml (0.00-0.034)
[2023-09-11] MEDS: MORPHINE 4MG/ML SYRINGE 4 MG IV (12:30)
[2023-09-11] MEDS: ONDANSETRON 4MG/2ML VIAL 4 MG IV (12:30)
[2023-09-11 12:56] LABS: Coronavirus 19, PCR Not Detected (NotDetected); Influenza A, PCR Not Detected (NotDetected); Influenza B, PCR Not Detected (NotDetected)
[2023-09-11 13:09] VITALS: BP 108/68; PULSE 60; RESP 13; O2SAT 100
--- NOTE | 2023-09-11 13:38 | PC.NURSE ---
Rounded on pt to see if they had any needs. pt had no needs at this time
[2023-09-11 14:00] VITALS: BP 113/68; PULSE 70; RESP 16; O2SAT 98
[2023-09-11 14:30] VITALS: BP 110/87; RESP 15; O2SAT 99
[2023-09-11 14:32] LABS: Troponin I < 0.01 ng/ml (0.00-0.034)
[2023-09-11 14:55] VITALS: BP 110/87; PULSE 67; RESP 13; TEMP 36.7
== END 2023-09-11 14:57 | disposition home or self-care (01) ==
PROVIDERS: Emergency Provider Emergency Medicine; PCP Internal Medicine
DX: R07.9 Chest pain, unspecified (principal); I49.9 Cardiac arrhythmia, unspecified; M79.18 Myalgia, other site
CPT/HCPCS: 71046; 80053; 82550; 84484; 85025; 87636; 93005; 96374; 96375; 99285; J2405

== ENCOUNTER 2023-09-15 20:29 | Emergency (ER) | payer BC, SELFPAY ==
[2023-09-15 20:30] VITALS: BP 118/81; PULSE 89; RESP 16; TEMP 36.8; O2SAT 100; BMI 29.2
--- NOTE | 2023-09-15 20:47 | XR_ITS ---
PROCEDURE INFORMATION: Exam: XR Cervical Spine Exam date and time: 09/15/2023 9:05 PM Age: 28 years old Clinical indication: Numbness; Additional info: Bilateral arm and leg tingling TECHNIQUE: Imaging protocol: Radiologic exam of the cervical spine. Views: 2 or 3 views. COMPARISON: CR XR CHEST 2V 09/11/2023 12:12 PM FINDINGS: Bones/joints: Craniocervical alignment is normal. The odontoid is intact. Vertebral alignment is normal. Facets are well aligned. No fractures are evident radiographically. No blastic or lytic lesions. Disc space heights are well-maintained. Soft tissues: Prevertebral soft tissues are normal. Lungs: Visualized pulmonary apices are clear. IMPRESSION: No acute findings.
[2023-09-15] MEDS: IBUPROFEN 600 MG TABLET PO (20:56)
[2023-09-15] MEDS: ACETAMINOPHEN 500MG TAB 1000 MG PO (20:56)
--- NOTE | 2023-09-15 21:05 | ED_ITS ---
Discharge Plan Disposition Patient Disposition: Home, Self-Care Chief Complaint: PAIN Prescriptions Prescriptions: No Action dorzolamide-timolol 22.3-6.8 mg/mL drops 1 drp OPHTHALMIC amoxicillin-pot clavulanate 875-125 mg Tablet 1 tab PO Q12H Qty: 20 0RF ofloxacin 0.3 % drops 10 drp otic (ear) Q12H 14 Days Qty: 20 0RF Rx Instructions: In left ear as directed Referrals Follow up/Referrals: Pantera Macdonald DO [Primary Care Provider] - See instructions Activity Restrictions/Add. Instructions Additional Instructions/Restrictions: Follow-up with your family doctor regarding this visit to the emergency department. Talk to them about possible MRI of your cervical spine for further evaluation. Also talk to your family doctor about labs and tests for autoimmune disorders. Clinical Impressions Clinical Impression: Bilateral numbness and tingling of arms and legs Discharge ED Provider: Wyatt Fagan General Adult HPI General Chief complaint: PAIN Stated complaint: bilateral leg pain Time Seen by Provider: 09/15/23 20:31 Mode of Arrival: Ambulatory Source of Information: Patient Limitations: No Limitations Description of Symptoms (Recalled from ER Triage Doc. by RN): Pt presents with bilateral leg weakness from her knees to her feet that has been occuring over the past 2 weeks. Pt states she gets intermittent pain in her elbows and arms as well. History of Present Illness HPI narrative: 28-year-old female no relevant medical history presenting with bilateral upper and lower extremity pains. Patient states that she was seen a couple days prior to this visit for similar complaints as well as chest pain. Workup negative at that time. Patient continuing to have the symptoms. Patient states that it feels heavy in her bilateral upper and lower extremities from the knees distally as well as elbows distally. Nothing proximal to the knee or elbow. States that she thinks it may be related to sleeping on a pillow incorrectly as she is recently got and moved in with a new bedding supplies. No bowel or bladder dysfunction, trauma, falls, neck or back pain, fevers or chills, history of IV drug abuse, or any other concerns. Please note that above description of symptoms, in this electronic medical record under categorization of recalled from ER triage doctor by RN are reflective of an initial nursing assessment, however, is not reflective of my full history and physical exam that was personally taken and clarified. Consequentially, this preceding description of symptoms, which may include the patient's categorized chief complaint in the EMR, do not reflect my personal clinical impression, and the ultimate description of history of present illness and patient stated complaints should be deferred to this section of the note. Unless stated otherwise or congruent with this section of the note, additional signs, symptoms, or incongruence should be interpreted as inaccurate with my clinical impression. Related Data Home Medications Medication Instructions Recorded Confirmed dorzolamide 22.3 mg-timolol 6.8 1 drp ophthalmic (eye) 06/15/21 07/20/23 mg/mL eye drops Previous Rx's Medication Instructions Recorded amoxicillin 875 mg-potassium 1 tab PO Q12H #20 tabs 07/25/23 clavulanate 125 mg tablet ofloxacin 0.3 % ear drops 10 drp otic (ear) Q12H 14 days #20 07/25/23 mL Allergies Allergy/AdvReac Type Severity Reaction Status Date / Time No Known Drug Allergies Allergy Unknown -- Verified 07/20/23 14:23 [facility] Disclaimer: The information contained in this section may have been updated after the patient was seen, as this information can be updated by other users. Medical History Cataract Obesity Surgical History Hx of cataract surgery Hx of wisdom tooth extraction Family History Other No significant family history Social History Smoking Status: Never smoker second hand exposure: No alcohol intake: current current occupational status: employed Travel in the last 8 weeks: None ROS Obtained: Yes All systems reviewed & no additional complaints except as documented Physical Exam General General appearance: alert and in no apparent distress Head Head exam: atraumatic and normocephalic Eye Eye exam: Present normal appearance, PERRL and EOMI ENT ENT exam: Present mucous membranes moist Neck Neck exam: Present normal inspection, full ROM and trachea midline Respiratory Respiratory exam: Absent respiratory distress, wheezes, stridor, accessory muscle use or prolonged expiratory phase Cardiovascular Cardiovascular exam: Present normal rhythm Abdominal Exam Abdominal exam: Present soft; Absent distention, tenderness, guarding, rebound or rigidity Extremities Exam Extremities exam: Absent edema Neurological Exam Neurological exam: Present alert, oriented X3, CN II-XII intact, normal gait and reflexes normal; Absent motor sensory deficit Skin Skin exam: Present warm and dry; Absent diaphoresis or erythema Medical Decision Making Medical Records Medical records reviewed: Yes I reviewed the patient's medical records. Chinedu Inquiry Pt receiving controlled substance: No Chinedu was queried for this patient: No Vital Signs: 09/15/23 20:30 Temperature 98.2 F Temperature Source Oral Pulse Rate [Left] 89 Respiratory Rate 16 Blood Pressure [Right Arm] 118/81 Blood Pressure Mean [Right Arm] 93 Blood Pressure Source [Right Arm] Automatic Cuff Blood Pressure Position [Right Arm] Sitting 02 Sat by Pulse Oximetry 100 Oxygen Delivery Method Room Air Orders (Tests/Meds): ED MEDICATIONS Discontinued Medications Generic Name Dose Route Start Last Admin Trade Name Freq PRN Reason Stop Dose Admin Acetaminophen 1,000 mg 09/15/23 20:47 09/15/23 20:56 Acetaminophen 500mg Tab PO 09/15/23 20:48 1,000 mg ONCE ONE Administration Ibuprofen 600 mg 09/15/23 20:47 09/15/23 20:56 Ibuprofen 600 Mg Tablet PO 09/15/23 20:48 600 mg ONCE ONE Administration ORDERS Category Date Time Status Cervical spine XR 3 views [XR cervical spine 3V] Stat Exams 09/15/23 20:47 Taken Medical Decision Narrative: 28-year-old female no relevant medical history presenting with bilateral upper and lower extremity pains. Patient states that she was seen a couple days prior to this visit for similar complaints as well as chest pain. Workup negative at that time. Patient continuing to have the symptoms. Patient states that it feels heavy in her bilateral upper and lower extremities from the knees distally as well as elbows distally. Nothing proximal to the knee or elbow. States that she thinks it may be related to sleeping on a pillow incorrectly as she is recently got and moved in with a new bedding supplies. No bowel or bladder dysfunction, trauma, falls, neck or back pain, fevers or chills, history of IV drug abuse, or any other concerns. History was obtained via conversation with patient. Patient has not seen her family doctor for any of these complaints. On arrival, patient hemodynamically stable, alert, oriented x4, appropriate, GCS 15, moving all extremities spontaneously, pupils equal and reactive to light. Full physical exam performed and significant for neurologically intact, ambulatory. Symmetric, no deficits on my exam. Very well-appearing. Differential includes radiculopathy, metabolic abnormality, anxiety, among others. Patient states she just came off her period in the last couple of days, no chance she is . Patient was given Tylenol Motrin for symptomatic management and correction of underlying abnormalities. Workup independently interpreted and significant for no obvious abnormality of the cervical spine on 3 view films. See radiology read for full review of final results. On further conversation, patient has had no fevers, weight loss, night sweats, family history or personal history of red, inflamed joints, autoimmunity, or any other notable history. Given patient presentation, workup, history, this most likely represents radiculopathy versus rheumatologic disease, among others. I feel is unlikely the patient has acute life or limb threatening disorder given history of radiculopathies elbows and knees distally, with completely neurologically intact exam and ambulatory without issue without history of bowel or bladder dysfunction. Recommended she follow-up with family doctor, rheumatology, possible outpatient cervical spine MRI. Because patient at baseline without signs or symptoms of clinical decompensation, deemed appropriate for discharge. Results were relayed to patient who voiced understanding and were agreeable to outpatient management and follow up. I discussed my clinical impression with patient and answered all questions. At this time, the evidence for any other entities in the differential is insufficient to warrant any further testing or ED observation. This was explained as well. Advisory was given that persistent or worsening symptoms require further evaluation. I confirmed the understanding of this discussion. Critical Care Critical Care Time Critical Care Time: No
[2023-09-15 22:01] VITALS: BP 121/72; PULSE 78; RESP 16; TEMP 36.8; O2SAT 100
== END 2023-09-15 22:08 | disposition home or self-care (01) ==
PROVIDERS: Emergency Provider Emergency Medicine; PCP Internal Medicine
DX: M79.604 Pain in right leg (principal); M79.605 Pain in left leg; R20.2 Paresthesia of skin
CPT/HCPCS: 72040; 99283

== ENCOUNTER 2023-11-09 13:23 | Outpatient (CLI) | payer BC, SELFPAY ==
--- NOTE | 2023-11-09 13:23 | US_ITS ---
PROCEDURE: US OB <= 14 WEEKS FETUS CLINICAL INDICATION: US OB Before 14 wks -Dates /Confirmation COMPARISON: No exams were available for comparison FINDINGS: Transvaginal sonographic images of the pelvis were obtained. From her last menstrual period she is 8weeks 5days. An intrauterine gestational sac is present with a pole with a crown-rump length of 1.46cm This correlates to a gestational age of 7weeks 6days. heart tones are present with an FHR of 163bpm. Yolk sac is noted. The yolk sac measures 4.6mm. The right ovary is seen and appears polycystic. The left ovary is seen and appears normal. There is a follicle in the left ovary measuring 1.7 cm x 1.3 cm x 2.3 cm. There is no fluid in the cul-de-sac. IMPRESSION: 1. Viable fetus within the uterine cavity measuring 7 weeks 6 days. 2. We will revise her due date to reflect this and the new TAO will be 06/21/2024. 3. Both ovaries are seen and appear normal. There appears to be a corpus luteum in the left ovary. 4. No fluid in the cul-de-sac. Dictated by: Donnie Yeh MD 11/10/2023 08:28 Donnie Yeh MD in OV 11/10/2023 08:28
== END 2023-11-09 23:59 | disposition home or self-care (01) ==
LOC: RAD 13:23
PROVIDERS: PCP Internal Medicine; Visit Provider Nurse Practitioner Obstetrics & Gynecology
DX: Z32.01 Encounter for pregnancy test, result positive (principal); Z36.87 Encounter for antenatal screening for uncertain dates; Z3A.01 Less than 8 weeks gestation of pregnancy
CPT/HCPCS: 76801; 87086

== ENCOUNTER 2023-11-10 09:10 | Outpatient (CLI) | payer BC, SELFPAY ==
[2023-11-10 09:30] LABS: Basophils # 0.1 K/mm3 (0-0.2); Basophils % 0.9 % (0.1-2.0); Eosinophils # 0.2 K/mm3 (0.0-0.4); Eosinophils % 2.5 % (0.1-12.0); Hematocrit 36.1 % (37.0-47.0); Hemoglobin 11.5 g/dL (12.2-16.2); Lymphocytes # 1.6 K/mm3 (0.7-4.5); Lymphocytes % 22.5 % (10-50); Mean Corpuscular HGB Conc 31.8 g/dL (31.8-35.4); Mean Corpuscular Hemoglobin 25.1 pg (27.0-31.2); Mean Platelet Volume 7.4 fl (7.4-10.4); Monocytes # 0.3 K/mm3 (0.1-1.0); Monocytes % 4.6 % (1.7-9.3); Neutrophils # 4.9 K/mm3 (1.8-7.8); Neutrophils % 69.5 % (37.0-80.0); Platelet Count 323 K/mm3 (142-424); Red Blood Count 4.57 M/mm3 (4.20-5.40); Red Cell Distribution Width 15.1 % (11.5-17.5)
[2023-11-10 15:23] LABS: HIV (1&2) Antibody Rapid NON REACTIVE
[2023-11-11 08:20] LABS: HCV Ab Non Reactive (Non Reactive); Hepatitis B Surface Antigen Negative (Negative); Rubella Antibodies, IgG 8.66 index (Immune >0.99)
[2023-11-11 11:31] LABS: Rapid Plasma Reagin Ab Titer Non Reactive titer (NonRea<1:1)
== END 2023-11-10 23:59 | disposition home or self-care (01) ==
LOC: LAB 09:11
PROVIDERS: PCP Internal Medicine; Visit Provider Nurse Practitioner Obstetrics & Gynecology
DX: Z34.91 Encounter for supervision of normal pregnancy, unspecified, first trimester (principal); Z3A.01 Less than 8 weeks gestation of pregnancy
CPT/HCPCS: 36415; 85025; 86593; 86762; 86850; 87340

== ENCOUNTER 2023-11-13 10:19 | Emergency (ER) | payer BC, SELFPAY ==
[2023-11-13 10:20] VITALS: BP 112/70; PULSE 95; RESP 15; TEMP 36.8; O2SAT 97; BMI 25.0
[2023-11-13 10:30] VITALS: BP 114/72; PULSE 93; O2SAT 98
--- NOTE | 2023-11-13 10:34 | ED_ITS ---
Discharge Plan Disposition Patient Disposition: Home, Self-Care Prescriptions Prescriptions: New Unisom (doxylamine) 25 mg tablet 12.5 mg PO Q6H PRN (Reason: vomiting) Qty: 12 0RF pyridoxine (vitamin B6) 25 mg tablet 25 mg PO BID PRN (Reason: vomiting) Qty: 24 0RF nitrofurantoin monohyd/m-cryst [Macrobid] 100 mg capsule 100 mg PO BID 5 Days Qty: 10 0RF Rx Instructions: must administer with a meal/food No Action brimonidine 0.2 % drops Eye-Both BID Patient Comments: INSTILL 1 DROP INTO EACH EYE TWICE DAILY DIRECTED fluorometholone 0.1 % drops,suspension Eye-Both ONCE Patient Comments: INSTILL 1 DROP INTO EACH EYE TWICE DAILY dorzolamide-timolol 22.3-6.8 mg/mL drops 1 drp OPHTHALMIC ofloxacin 0.3 % drops 10 drp otic (ear) Q12H 14 Days Qty: 20 0RF Rx Instructions: In left ear as directed Referrals Follow up/Referrals: Brianda Wall PA [Primary Care Provider] - See instructions Activity Restrictions/Add. Instructions Additional Instructions/Restrictions: At this time is felt you are safe to be discharged home. If new or worsening symptoms please do not hesitate to return the emergency department. Please take your medications as prescribed and continue to follow-up with Dr. Yeh as discussed. Clinical Impressions Clinical Impression: Vomiting affecting , Asymptomatic bacteriuria Instructions Patient Instructions: DI for Diarrhea and Traveler's Diarrhea -- Adult, DI for Diarrhea and Traveler's Diarrhea -- Child, DI for Nausea -- Adult, DI for Nausea -- Child Discharge ED Provider: Jeancarlos Reed General Adult HPI General Chief complaint: Nausea/Vomiting/Diarrhea Stated complaint: vomiting lack of appitite dry mouth Time Seen by Provider: 11/13/23 10:22 Mode of Arrival: Ambulatory Source of Information: Patient Limitations: No Limitations Description of Symptoms (Recalled from ER Triage Doc. by RN): pt presents to ED with c/o nausea, vomitting. pt is 9 week and has had vomitting through out the . pt has two living children History of Present Illness HPI narrative: Patient is a EGA 9 weeks who presents emergency department for evaluation of vomiting. History is obtained by patient at bedside. Onset was acute over the last 24 to 48 hours. She has had vomiting throughout the however this is worse than normal. No current abdominal pain. No vaginal bleeding. No other acute complaints at this time. Patient is not on any antiemetic medication at baseline. Related Data Home Medications Medication Instructions Recorded Confirmed dorzolamide 22.3 mg-timolol 6.8 1 drp ophthalmic (eye) 06/15/21 11/09/23 mg/mL eye drops brimonidine 0.2 % eye drops drp Eye-Both BID 11/09/23 11/09/23 fluorometholone 0.1 % eye drp Eye-Both ONCE 11/09/23 11/09/23 drops,suspension Previous Rx's Medication Instructions Recorded ofloxacin 0.3 % ear drops 10 drp otic (ear) Q12H 14 days #20 07/25/23 mL doxylamine succinate 25 mg tablet 12.5 mg (1/2 x 25 mg) PO Q6H PRN 11/13/23 (Unisom (doxylamine)) vomiting #12 tabs nitrofurantoin 100 mg PO BID Bacteriuria 5 days 11/13/23 monohydrate/macrocrystals 100 mg #10 caps capsule (Macrobid) pyridoxine (vitamin B6) 25 mg 25 mg PO BID PRN vomiting #24 tabs 11/13/23 tablet Allergies Allergy/AdvReac Type Severity Reaction Status Date / Time No Known Drug Allergies Allergy Unknown -- Verified 11/09/23 15:01 [facility] Disclaimer: The information contained in this section may have been updated after the patient was seen, as this information can be updated by other users. Medical History Obesity Cataract Surgical History Hx of wisdom tooth extraction Hx of cataract surgery Family History Other No significant family history Social History Smoking Status: Never smoker second hand exposure: No alcohol intake: current alcohol intake frequency: a few times a week current occupational status: employed Travel in the last 8 weeks: None ROS Obtained: Yes Systems reviewed as appropriate & no additional complaints except as documented Physical Exam General General appearance: alert and in no apparent distress Head Head exam: atraumatic and normocephalic Eye Eye exam: Present PERRL ENT ENT exam: Present mucous membranes moist Neck Neck exam: Present normal inspection Chest Chest inspection: Present normal inspection and symmetric chest wall rise Respiratory Respiratory exam: Present normal lung sounds bilaterally; Absent respiratory distress Cardiovascular Cardiovascular exam: Present regular rate and normal rhythm Abdominal Exam Abdominal exam: Present soft; Absent tenderness, guarding or rebound Extremities Exam Extremities exam: Present normal inspection Neurological Exam Neurological exam: Present alert Psychiatric Psychiatric exam: Present normal affect Skin Skin exam: Present warm and dry Medical Decision Making Chinedu Inquiry Pt receiving controlled substance: No Vital Signs: 11/13/23 10:20 11/13/23 10:30 11/13/23 11:30 Temperature 98.3 F Temperature Source Oral Pulse Rate 93 H 69 Pulse Rate [Left Radial] 95 H Respiratory Rate 15 Blood Pressure 114/72 Blood Pressure [Right Arm] 112/70 Blood Pressure Mean 82 Blood Pressure Mean [Right Arm] 84 02 Sat by Pulse Oximetry 97 98 100 Oxygen Delivery Method Room Air Room Air Lab Data Lab Results 11/13/23 10:30: WBC 6.2, RBC 4.38, Hgb 11.3 L, Hct 34.2 L, MCV 78.1 L, MCH 25.8 L, MCHC 33.1, RDW 15.7, Plt Count 286, MPV 7.8, Neut % (Auto) 70.8, Lymph % (Auto) 21.6, [place] % (Auto) 5.6, Eos % (Auto) 1.4, Baso % (Auto) 0.6, Neut # (Auto) 4.4, Lymph # (Auto) 1.3, [place] # (Auto) 0.3, Eos # (Auto) 0.1, Baso # (Auto) 0.0, Sodium 136, Potassium 3.4 L, Chloride 104, Carbon Dioxide 26, Anion Gap 9.4, BUN 5 L, Creatinine 0.60, Estimated Creat Clear 149, Estimated GFR 118, Est GFR ( Amer) 143, Glucose 98, Calcium 9.1, Total Bilirubin 0.4, AST 37 H, ALT 31, Alkaline Phosphatase 74, Total Protein 7.2, Albumin 3.9, Globulin 3.3 H, Albumin/Globulin Ratio 1.2, Lipase 33 11/13/23 10:35: Urine Color Yellow, Urine Appearance Clear, Urine pH 7.5, Ur Specific [place] 1.020, Urine Protein Negative, Urine Glucose (UA) Negative, Urine Ketones Negative, Urine Blood Negative, Urine Nitrate Negative, Urine Bilirubin Negative, Urine Urobilinogen 1.0, Ur Leukocyte Esterase 1+ A, Urine WBC Occasional, Ur Squamous Epith Cells 3-5, Amorphous Sediment Trace, Urine Bacteria Trace 11/13/23 10:30 11/13/23 10:30 Orders (Tests/Meds): ED MEDICATIONS Discontinued Medications Generic Name Dose Route Start Last Admin Trade Name Freq PRN Reason Stop Dose Admin Doxylamine Succinate/Pyridoxine 1 tab 11/13/23 10:33 11/13/23 10:43 Doxylamine 10mg/Pyridoxine 10mg Tablet PO 11/13/23 10:34 1 tab ONCE ONE Administration Lactated Ringer's 1,000 mls @ 999 mls/hr 11/13/23 10:32 11/13/23 10:43 Lactated Ringer's 1000 Ml Bag IV 11/13/23 11:32 999 mls/hr .Q1H1M ONE Administration Promethazine HCl 12.5 mg 11/13/23 10:32 11/13/23 10:42 Promethazine Hcl 25mg/Ml 1ml Vial IV 11/13/23 10:33 12.5 mg ONCE ONE Administration Sodium Chloride 25 ml 11/13/23 10:32 11/13/23 10:43 Sodium Chloride 0.9% 25ml Bag IV 11/13/23 10:33 25 ml ONCE ONE Administration ORDERS Category Date Time Status CBC w/Auto Diff [Complete Blood Count Auto Diff] Stat Lab 11/13/23 10:30 Completed CMP [Comprehensive Metabolic Panel] Stat Lab 11/13/23 10:30 Completed Lipase Stat Lab 11/13/23 10:30 Completed UA [Urinalysis and Microscopic] Stat Lab 11/13/23 10:35 Completed Urine Culture Stat Micro 11/13/23 10:35 Received Medical Decision Narrative: In summary patient is a 28-year-old female past medical history described above who presents emergency department for evaluation of vomiting in the setting of . Patient is hemodynamically stable nontoxic-appearing upon arrival, afebrile. Differential includes normal vomiting during , urinary tract infection, pancreatitis, viral syndrome, among others. Workup be conducted with hematologic labs, urinalysis. Initial inventions include likely just, 12.5 mg of promethazine, crystalloid bolus. Transvaginal scan was considered however patient already has established intrauterine will be deferred. Initial workup reviewed by me, hematologic labs are nonactionable, no leukocytosis, no significant anemia, no ELIAN or critical electrolyte abnormality. Urinalysis has bacteriuria, not consistent with infection but will be treated with Macrobid given status. Upon repeat evaluation patient underwent p.o. trial with successful. Patient be discharged with a prescription for doxylamine and vitamin B6 will follow-up with Dr. Appiah this week for possible escalation of antiemetics. Patient was given return precautions. Critical Care Critical Care Time Critical Care Time: No
[2023-11-13 10:41] LABS: Basophils % 0.6 % (0.1-2.0); Eosinophils # 0.1 K/mm3 (0.0-0.4); Eosinophils % 1.4 % (0.1-12.0); Hematocrit 34.2 % (37.0-47.0); Hemoglobin 11.3 g/dL (12.2-16.2); Lymphocytes # 1.3 K/mm3 (0.7-4.5); Lymphocytes % 21.6 % (10-50); Mean Corpuscular HGB Conc 33.1 g/dL (31.8-35.4); Mean Corpuscular Hemoglobin 25.8 pg (27.0-31.2); Mean Corpuscular Volume 78.1 fl (81-99); Mean Platelet Volume 7.8 fl (7.4-10.4); Monocytes # 0.3 K/mm3 (0.1-1.0); Monocytes % 5.6 % (1.7-9.3); Neutrophils # 4.4 K/mm3 (1.8-7.8); Neutrophils % 70.8 % (37.0-80.0); Platelet Count 286 K/mm3 (142-424); Red Blood Count 4.38 M/mm3 (4.20-5.40); Red Cell Distribution Width 15.7 % (11.5-17.5); White Blood Count 6.2 K/mm3 (4.8-10.8)
[2023-11-13] MEDS: PROMETHAZINE HCL 25MG/ML 1ML VIAL 12.5 MG IV (10:42)
[2023-11-13] MEDS: DOXYLAMINE 10MG/PYRIDOXINE 10MG TABLET 1 TAB PO (10:43)
[2023-11-13] MEDS: SODIUM CHLORIDE 0.9% 25ML BAG 25 ML IV (10:43)
[2023-11-13] MEDS: LACTATED RINGERS 1000ML 1,000 ML 999 ML IV (10:43)
[2023-11-13 10:44] LABS: Chloride 104 mmol/L (98-107); Potassium 3.4 mmoL/L (3.5-5.1); Sodium 136 mmol/L (136-145)
[2023-11-13 10:46] LABS: Microscopic, Urine URINE MICROSCOPIC (MICROSCOPIC)
[2023-11-13 10:47] LABS: Alanine Aminotransferase 31 U/L (12-78); Albumin Level 3.9 g/dl (3.5-5.0); Albumin/Globulin Ratio 1.2 (1.1-1.8); Alkaline Phosphatase 74 U/L (38-126); Anion Gap 9.4 mEq/L (5-15); Aspartate Amino Transferase 37 U/L (14-36); Bilirubin,Total 0.4 mg/dl (0.2-1.3); Blood Urea Nitrogen 5 mg/dl (7-17); Calcium 9.1 mg/dl (8.4-10.2); Carbon Dioxide 26 mmol/L (22.0-30.0); Creatinine Clearance Estimated 149 mL/min (50-200); Estimated Glomerular Filt Rate 118 ml/min (>60); GFR (African American) 143 ML/MIN (>60); Globulin 3.3 g/dL (1.3-3.2); Glucose 98 mg/dl (74-100); Lipase 33 U/L (23-300); Total Protein,Serum 7.2 g/dl (6.3-8.2)
[2023-11-13 10:53] LABS: Appearance,Urine CLEAR (Clear); Bilirubin,Urine Negative (Negative); Blood, Urine Negative (Negative); Color,Urine YELLOW (Yellow); Glucose,Urine (UA) Negative (Negative); Ketones,Urine Negative (Negative); Leukocyte Esterase,Urine 1+ (Negative); Nitrate,Urine Negative (Negative); PH,Urine 7.5 (5.0-8.5); Protein,Urine Negative (Negative)
[2023-11-13 11:16] LABS: Amorphous Sediment,Urine Trace /lpf; Bacteria,Urine Trace /lpf; WBC,Urine Occasional #/hpf (0-3)
[2023-11-13 11:30] VITALS: PULSE 69; O2SAT 100
--- NOTE | 2023-11-13 12:02 | PC.NURSE ---
DR PETERS AT BEDSIDE TO UPDATE PT
[2023-11-13 12:09] VITALS: BP 120/70; PULSE 70; RESP 18; TEMP 36.8; O2SAT 98
== END 2023-11-13 12:14 | disposition home or self-care (01) ==
PROVIDERS: Emergency Provider Emergency Medicine; PCP Physician Assistant
DX: O21.9 Vomiting of pregnancy, unspecified (principal); R82.71 Bacteriuria; Z3A.09 9 weeks gestation of pregnancy
CPT/HCPCS: 80053; 81001; 83690; 85025; 87086; 96361; 96374; 99284; J2550; J7120

== ENCOUNTER 2023-11-30 14:56 | Emergency (ER) | payer BC, SELFPAY ==
[2023-11-30 14:57] VITALS: BP 116/78; PULSE 96; RESP 16; TEMP 36.9; O2SAT 98; BMI 29.9
[2023-11-30 15:06] VITALS: BP 116/78; PULSE 103; O2SAT 98
--- NOTE | 2023-11-30 15:08 | ED_ITS ---
Discharge Plan Disposition Patient Disposition: Home, Self-Care Condition: Good Prescriptions Prescriptions: No Action brimonidine 0.2 % drops Eye-Both BID Patient Comments: INSTILL 1 DROP INTO EACH EYE TWICE DAILY DIRECTED fluorometholone 0.1 % drops,suspension Eye-Both ONCE Patient Comments: INSTILL 1 DROP INTO EACH EYE TWICE DAILY pyridoxine (vitamin B6) 25 mg tablet 25 mg PO BID dorzolamide-timolol 22.3-6.8 mg/mL drops 1 drp OPHTHALMIC promethazine 12.5 mg tablet 12.5 mg PO Q4-6H PRN (Reason: nausea and vomiting) Qty: 30 2RF promethazine 12.5 mg suppository 12.5 mg [place] Q6H PRN (Reason: nausea and vomiting) Qty: 12 1RF Referrals Follow up/Referrals: Brianda Wall PA [Primary Care Provider] - See instructions Activity Restrictions/Add. Instructions Additional Instructions/Restrictions: Please follow-up with your [facility] next week. Return to ER for any worsening signs or symptoms as needed. Clinical Impressions Clinical Impression: Clear vaginal discharge Back pain Qualifiers: Back pain location: low back pain Chronicity: acute Back pain laterality: b ilateral Sciatica presence: without sciatica Qualified Code(s): M54.50 - Low back pain, unspecified Discharge ED Provider: Jeancarlos Reed General Adult HPI <SHEN Diop - Last Filed: 11/30/23 16:33> General Chief complaint: PAIN Stated complaint: 12 weeks preg, abd/back pain Time Seen by Provider: 11/30/23 14:59 History of Present Illness HPI narrative: Patient presents for flank pain vaginal discharge. Patient states that she was utilizing a shot back during work last evening and started having low back pain and that some point felt a gush of clear fluid then sweet smelling fluid then sour smelling fluid . Patient is 12 weeks and does have a documented intrauterine . She denies chest pain fever chills hemoptysis hematochezia melena nausea vomiting diarrhea vaginal burning dysuria or blood from the vagina. Related Data Home Medications Medication Instructions Recorded Confirmed dorzolamide 22.3 mg-timolol 6.8 1 drp ophthalmic (eye) 06/15/21 11/28/23 mg/mL eye drops brimonidine 0.2 % eye drops drp Eye-Both BID 11/09/23 11/28/23 fluorometholone 0.1 % eye drp Eye-Both ONCE 11/09/23 11/28/23 drops,suspension pyridoxine (vitamin B6) 25 mg 25 mg PO BID 11/28/23 11/28/23 tablet Previous Rx's Medication Instructions Recorded promethazine 12.5 mg tablet 12.5 mg PO Q4-6H PRN nausea and 11/28/23 vomiting #30 tabs promethazine 12.5 mg rectal 12.5 mg [place] Q6H PRN nausea and 11/29/23 suppository vomiting #12 ea Allergies Allergy/AdvReac Type Severity Reaction Status Date / Time No Known Drug Allergies Allergy Unknown -- Verified 11/28/23 15:47 PFS <SHEN Diop - Last Filed: 11/30/23 16:33> [facility] Disclaimer: The information contained in this section may have been updated after the patient was seen, as this information can be updated by other users. Medical History Obesity Cataract Surgical History Hx of wisdom tooth extraction Hx of cataract surgery Family History Other No significant family history Social History Smoking Status: Never smoker second hand exposure: No alcohol intake: current alcohol intake frequency: a few times a week current occupational status: employed Travel in the last 8 weeks: None <SHEN Diop - Last Filed: 11/30/23 16:33> ROS Obtained: Yes Systems reviewed as appropriate & no additional complaints except as documented Physical Exam <SHEN Diop - Last Filed: 11/30/23 16:33> General General appearance: alert and in no apparent distress Respiratory Respiratory exam: Present normal lung sounds bilaterally Cardiovascular Cardiovascular exam: Present regular rate and normal rhythm Abdominal Exam Abdominal exam: Present soft, tenderness (Mild diffuse abdominal tenderness to palpation without rebound guarding or rigidity.) and normal bowel sounds Back Exam Back exam: Present normal inspection, full ROM and tenderness (Patient mildly tender to palpation in the paraspinous muscles of the lumbar spine) Neurological Exam Neurological exam: Present alert and oriented X3 Medical Decision Making <SHEN Diop - Last Filed: 11/30/23 16:33> Medical Records Medical records reviewed: Yes I reviewed the patient's medical records. Chinedu Inquiry Pt receiving controlled substance: No Vital Signs: 11/30/23 14:57 11/30/23 15:06 11/30/23 16:38 Temperature 98.5 F Temperature Source Oral Pulse Rate 103 H 93 H Pulse Rate [Right] 96 H Respiratory Rate 16 Blood Pressure 116/78 140/95 H Blood Pressure [Right Arm] 116/78 Blood Pressure Mean [Right Arm] 90 Blood Pressure Source Blood Pressure Source [Right Arm] Automatic Cuff 02 Sat by Pulse Oximetry 98 98 100 Oxygen Delivery Method Room Air Room Air 11/30/23 16:39 Temperature 98.0 F Temperature Source Oral Pulse Rate 87 Pulse Rate [Right] Respiratory Rate 16 Blood Pressure 140/95 H Blood Pressure [Right Arm] Blood Pressure Mean [Right Arm] Blood Pressure Source Automatic Cuff Blood Pressure Source [Right Arm] 02 Sat by Pulse Oximetry Oxygen Delivery Method Room Air Lab Data Lab results reviewed: Yes I reviewed the patient's lab results. Lab Results 11/30/23 14:59: Urine Color Yellow, Urine Appearance Cloudy, Urine pH 7.0, Ur Specific [place] 1.015, Urine Protein Negative, Urine Glucose (UA) Negative, Urine Ketones Negative, Urine Blood Trace-i, Urine Nitrate Negative, Urine Bilirubin Negative, Urine Urobilinogen 1.0, Ur Leukocyte Esterase Negative, Urine RBC Occasional, Urine WBC None, Ur Squamous Epith Cells 5-10, Amorphous Sediment 1+, Urine Bacteria 1+ 11/30/23 15:33: WBC 6.4, RBC 4.22, Hgb 11.0 L, Hct 33.5 L, MCV 79.4 L, MCH 26.1 L, MCHC 32.9, RDW 17.5, Plt Count 320, MPV 7.8, Neut % (Auto) 70.4, Lymph % (Auto) 20.4, [place] % (Auto) 6.3, Eos % (Auto) 2.3, Baso % (Auto) 0.7, Neut # (Auto) 4.5, Lymph # (Auto) 1.3, [place] # (Auto) 0.4, Eos # (Auto) 0.2, Baso # (Auto) 0.0, Sodium 136, Potassium 3.3 L, Chloride 106, Carbon Dioxide 25, Anion Gap 8.3, BUN 5 L, Creatinine 0.50 L, Estimated Creat Clear 195, Estimated GFR 146, Est GFR ( Amer) 177, Glucose 85, Calcium 8.8, Total Bilirubin 0.4, AST 30, ALT 31, Alkaline Phosphatase 94, Total Protein 7.0, Albumin 3.6, G lobulin 3.4 H, Albumin/Globulin Ratio 1.1, HCG, Quant [id number] H, Blood Type A Negative, Antibody Screen Negative 11/30/23 15:47: Membrane Rupture Negative 11/30/23 15:33 11/30/23 15:33 Orders (Tests/Meds): ORDERS Category Date Time Status Type and Screen Stat BBK 11/30/23 15:33 Completed POCUS Point of Care (ER Only) Stat Exams 11/30/23 15:17 Completed Amnisure Test [ Membrane Rupture (Rapid)] Stat Lab 11/30/23 15:47 Completed CBC w/Auto Diff [Complete Blood Count Auto Diff] Stat Lab 11/30/23 15:33 Completed CMP [Comprehensive Metabolic Panel] Stat Lab 11/30/23 15:33 Completed HCG,Quantitative Stat Lab 11/30/23 15:33 Completed UA [Urinalysis and Microscopic] Stat Lab 11/30/23 14:59 Completed Medical Decision Narrative: In summary patient is a 28-year-old female who presents to the emergency department for evaluation of back pain and vaginal discharge. Patient is hemodynamically stable upon arrival, afebrile. Physical exam is remarkable for mild abdominal tenderness to palpation without rebound or guarding or rigidity. Patient has tenderness to palpation of the bilateral paraspinous lumbar muscles without CVA tenderness.. Differential diagnosis includes threatened miscarriage versus vaginal infection versus STD etc. Initial workup will be conducted with hematologic labs, type and screen, AmniSure POCUS. Initial interventions include Tylenol. Initial workup reviewed by me and her hematologic labs are nonactionable AmniSure is negative and POCUS shows no distress with normal . Normal amniotic sac. heart rate 164. Given this we will refer patient for close follow-up with [facility] and for a follow-up appointment as soon as possible given her symptoms. We have essentially ruled out any threatened miscarriage or any other serious or acute problem currently. <Wyatt Fagan MD - Last Filed: 11/30/23 17:11> Vital Signs: 11/30/23 14:57 11/30/23 15:06 11/30/23 16:38 Temperature 98.5 F Temperature Source Oral Pulse Rate 103 H 93 H Pulse Rate [Right] 96 H Respiratory Rate 16 Blood Pressure 116/78 140/95 H Blood Pressure [Right Arm] 116/78 Blood Pressure Mean [Right Arm] 90 Blood Pressure Source Blood Pressure Source [Right Arm] Automatic Cuff 02 Sat by Pulse Oximetry 98 98 100 Oxygen Delivery Method Room Air Room Air 11/30/23 16:39 Temperature 98.0 F Temperature Source Oral Pulse Rate 87 Pulse Rate [Right] Respiratory Rate 16 Blood Pressure 140/95 H Blood Pressure [Right Arm] Blood Pressure Mean [Right Arm] Blood Pressure Source Automatic Cuff Blood Pressure Source [Right Arm] 02 Sat by Pulse Oximetry Oxygen Delivery Method Room Air Lab Data Lab Results 11/30/23 14:59: Urine Color Yellow, Urine Appearance Cloudy, Urine pH 7.0, Ur Specific [place] 1.015, Urine Protein Negative, Urine Glucose (UA) Negative, Urine Ketones Negative, Urine Blood Trace-i, Urine Nitrate Negative, Urine Bilirubin Negative, Urine Urobilinogen 1.0, Ur Leukocyte Esterase Negative, Urine RBC Occasional, Urine WBC None, Ur Squamous Epith Cells 5-10, Amorphous Sediment 1+, Urine Bacteria 1+ 11/30/23 15:33: WBC 6.4, RBC 4.22, Hgb 11.0 L, Hct 33.5 L, MCV 79.4 L, MCH 26.1 L, MCHC 32.9, RDW 17.5, Plt Count 320, MPV 7.8, Neut % (Auto) 70.4, Lymph % (Auto) 20.4, [place] % (Auto) 6.3, Eos % (Auto) 2.3, Baso % (Auto) 0.7, Neut # (Auto) 4.5, Lymph # (Auto) 1.3, [place] # (Auto) 0.4, Eos # (Auto) 0.2, Baso # (Auto) 0.0, Sodium 136, Potassium 3.3 L, Chloride 106, Carbon Dioxide 25, Anion Gap 8.3, BUN 5 L, Creatinine 0.50 L, Estimated Creat Clear 195, Estimated GFR 146, Est GFR ( Amer) 177, Glucose 85, Calcium 8.8, Total Bilirubin 0.4, AST 30, ALT 31, Alkaline Phosphatase 94, Total Protein 7.0, Albumin 3.6, G lobulin 3.4 H, Albumin/Globulin Ratio 1.1, HCG, Quant [id number] H, Blood Type A Negative, Antibody Screen Negative 11/30/23 15:47: Membrane Rupture Negative Orders (Tests/Meds): ORDERS Category Date Time Status Type and Screen Stat BBK 11/30/23 15:33 Completed POCUS Point of Care (ER Only) Stat Exams 11/30/23 15:17 Completed Amnisure Test [ Membrane Rupture (Rapid)] Stat Lab 11/30/23 15:47 Completed CBC w/Auto Diff [Complete Blood Count Auto Diff] Stat Lab 11/30/23 15:33 Completed CMP [Comprehensive Metabolic Panel] Stat Lab 11/30/23 15:33 Completed HCG,Quantitative Stat Lab 11/30/23 15:33 Completed UA [Urinalysis and Microscopic] Stat Lab 11/30/23 14:59 Completed Medical Decision Narrative: In summary patient is a 28-year-old female who presents to the emergency department for evaluation of back pain and vaginal discharge. Patient is hemodynamically stable upon arrival, afebrile. Physical exam is remarkable for mild abdominal tenderness to palpation without rebound or guarding or rigidity. Patient has tenderness to palpation of the bilateral paraspinous lumbar muscles without CVA tenderness.. Differential diagnosis includes threatened miscarriage versus vaginal infection versus STD etc. Initial workup will be conducted with hematologic labs, type and screen, AmniSure POCUS. Initial interventions include Tylenol. Initial workup reviewed by me and her hematologic labs are nonactionable AmniSure is negative and POCUS shows no distress with normal . Normal amniotic sac. heart rate 164. Given this we will refer patient for close follow-up with [facility] and for a follow-up appointment as soon as possible given her symptoms. We have essentially ruled out any threatened miscarriage or any other serious or acute problem currently. I independently interviewed and examined patient. [id number] ultrasound performed, patient fetus IUP has adequate amniotic fluid, good movements including flexion and extension, heart rate around 160. I was consulted by the EDUAR, and we discussed the complexity of the problems being addressed. I approved the treatment and management plan for this patient?s care in the Emergency Department, thus performing a substantive portion of the medical decision making. Wyatt Fagan MD Procedures <Wyatt Fagan MD - Last Filed: 11/30/23 17:11> Limited Ultrasound Indication:: Limited OB ultrasound Indication: Positive , urination versus amniotic fluid Identified structures: -Uterus -Left adnexa -Right adnexa -Pouch of Julio Cesar Findings: Uterus: Definitive IUP FHR: 164 Right adnexa: -Normal Left adnexa: -Normal Cul de sac: -free fluid absent Impression: Normal intrauterine . Adequate amniotic fluid, normal movements. rate 164. Normal ultrasound Images were saved to permanent archive The study was technically adequate CPT Transabdominal: 26994-91 This study was performed by me, and I personally interpreted all images/videos. Based on my clinical judgement, these images were adequate and did not necessitate further imaging. Critical Care <SHEN Diop - Last Filed: 11/30/23 16:33> Critical Care Time Critical Care Time: No
--- NOTE | 2023-11-30 15:48 | PC.NURSE ---
OB NURSE AT BEDSIDE FOR AMNISURE TEST
--- NOTE | 2023-11-30 15:50 | PC.NURSE ---
DOPPLER FOR HEART TONES 128-131 BPM, MOTHER'S HR WAS 78
[2023-11-30 15:51] LABS: Basophils % 0.7 % (0.1-2.0); Eosinophils # 0.2 K/mm3 (0.0-0.4); Eosinophils % 2.3 % (0.1-12.0); Hematocrit 33.5 % (37.0-47.0); Lymphocytes # 1.3 K/mm3 (0.7-4.5); Lymphocytes % 20.4 % (10-50); Mean Corpuscular HGB Conc 32.9 g/dL (31.8-35.4); Mean Corpuscular Hemoglobin 26.1 pg (27.0-31.2); Mean Corpuscular Volume 79.4 fl (81-99); Mean Platelet Volume 7.8 fl (7.4-10.4); Monocytes # 0.4 K/mm3 (0.1-1.0); Monocytes % 6.3 % (1.7-9.3); Neutrophils # 4.5 K/mm3 (1.8-7.8); Neutrophils % 70.4 % (37.0-80.0); Platelet Count 320 K/mm3 (142-424); Red Blood Count 4.22 M/mm3 (4.20-5.40); Red Cell Distribution Width 17.5 % (11.5-17.5); White Blood Count 6.4 K/mm3 (4.8-10.8)
[2023-11-30 15:53] LABS: Alanine Aminotransferase 31 U/L (12-78); Albumin Level 3.6 g/dl (3.5-5.0); Albumin/Globulin Ratio 1.1 (1.1-1.8); Alkaline Phosphatase 94 U/L (38-126); Anion Gap 8.3 mEq/L (5-15); Aspartate Amino Transferase 30 U/L (14-36); Bilirubin,Total 0.4 mg/dl (0.2-1.3); Blood Urea Nitrogen 5 mg/dl (7-17); Calcium 8.8 mg/dl (8.4-10.2); Carbon Dioxide 25 mmol/L (22.0-30.0); Chloride 106 mmol/L (98-107); Creatinine Clearance Estimated 195 mL/min (50-200); Estimated Glomerular Filt Rate 146 ml/min (>60); GFR (African American) 177 ML/MIN (>60); Globulin 3.4 g/dL (1.3-3.2); Glucose 85 mg/dl (74-100); Potassium 3.3 mmoL/L (3.5-5.1); Sodium 136 mmol/L (136-145)
[2023-11-30 16:07] LABS: Fetal Membrane Rupture (Rapid) Negative (Negative)
--- NOTE | 2023-11-30 16:20 | PC.NURSE ---
CALLED LAB TO CHECK ON THE STATUS FOR HCG QUANT AND UA RESULTS. LEONA IN THE LAB STATES THE HCG IS DILUTING AND WILL BE RESULTED SOON. THE UA ORDER DID NOT PRINT BUT THEY HAVE THE SAMPLE AND WILL RUN THE TEST NOW. STANISLAV ROWE PA-C AWARE. DR. MARK AT BEDSIDE FOR U/S
[2023-11-30 16:22] LABS: Microscopic, Urine URINE MICROSCOPIC (MICROSCOPIC)
[2023-11-30 16:23] LABS: Appearance,Urine CLOUDY (Clear); Bilirubin,Urine Negative (Negative); Blood, Urine TRACE-I (Negative); Color,Urine YELLOW (Yellow); Glucose,Urine (UA) Negative (Negative); Ketones,Urine Negative (Negative); Leukocyte Esterase,Urine Negative (Negative); Nitrate,Urine Negative (Negative); Protein,Urine Negative (Negative); Specific Gravity, Urine 1.015 (1.005-1.030)
[2023-11-30 16:31] LABS: Amorphous Sediment,Urine 1+ /lpf; Bacteria,Urine 1+ /lpf; RBC,Urine Occasional #/hpf (0-3)
[2023-11-30 16:36] LABS: HCG,Quantitative 151200 mIU/ml (0-5.42)
[2023-11-30 16:38] VITALS: BP 140/95; PULSE 93; O2SAT 100
[2023-11-30 16:39] VITALS: BP 140/95; PULSE 87; RESP 16; TEMP 36.7; O2SAT 100
== END 2023-11-30 16:41 | disposition home or self-care (01) ==
PROVIDERS: Physician Assistant; Emergency Provider Emergency Medicine; PCP Physician Assistant
DX: O26.891 Other specified pregnancy related conditions, first trimester (principal); R10.817 Generalized abdominal tenderness; M54.50 Low back pain, unspecified; N89.8 Other specified noninflammatory disorders of vagina; Z3A.12 12 weeks gestation of pregnancy
CPT/HCPCS: 80053; 81001; 84112; 84702; 85025; 86850; 99284

== ENCOUNTER 2023-12-07 13:11 | Emergency (ER) | payer BC, SELFPAY ==
[2023-12-07] VITALS (8 sets, daily range): BP systolic 111–132; BP diastolic 66–82; PULSE 89–108; RESP 16–18; TEMP 37; O2SAT 95–100; BMI 30.9
--- NOTE | 2023-12-07 13:31 | HMH.EDGENADL ---
Discharge Plan Disposition Patient Disposition: Home, Self-Care Chief Complaint: Upper Respiratory Infection Prescriptions Prescriptions: No Action brimonidine 0.2 % drops Eye-Both BID Patient Comments: INSTILL 1 DROP INTO EACH EYE TWICE DAILY DIRECTED fluorometholone 0.1 % drops,suspension Eye-Both ONCE Patient Comments: INSTILL 1 DROP INTO EACH EYE TWICE DAILY dorzolamide-timolol 22.3-6.8 mg/mL drops 1 drp OPHTHALMIC Classic 28 mg iron- 800 mcg tablet 1 tab PO DAILY potassium chloride 20 mEq tablet extended release 20 meq PO DAILY Qty: 30 2RF promethazine 12.5 mg tablet 12.5 mg PO Q4-6H PRN (Reason: nausea and vomiting) Qty: 30 2RF promethazine 12.5 mg suppository 12.5 mg AL Q6H PRN (Reason: nausea and vomiting) Qty: 12 1RF Referrals Follow up/Referrals: Brianda Wall PA [Primary Care Provider] - See instructions Activity Restrictions/Add. Instructions Additional Instructions/Restrictions: Call your family doctor to establish care for this visit to the emergency department and schedule follow-up within 48 hours to ensure improvement. If you have any worsening of your condition or any other concerning signs or symptoms, return to the emergency department or your primary care doctor for further evaluation. Be sure to stay plenty hydrated. Clinical Impressions Clinical Impression: Abdominal cramping affecting Discharge ED Provider: Nash Camara Adult HPI <Nash Camara MD - Last Filed: 12/07/23 16:42> General Chief complaint: Upper Respiratory Infection Stated complaint: pain in Ears, expos to virus, check baby, 17 weeks Time Seen by Provider: 12/07/23 13:32 Mode of Arrival: Ambulatory Source of Information: Patient Limitations: No Limitations Description of Symptoms (Recalled from ER Triage Doc. by RN): c/o cough started today, sore throat and right rib pain started yesterday with ear pain. Pt states that her was told here yesterday he has a virus and she wants to make sure her baby is ok, she is 13 weeks . History of Present Illness HPI narrative: Patient is a 28-year-old female G3, P2 at 13 weeks by last menstrual period. She is presenting today for cough, congestion, sore throat for 3 days. She reports contacts in the house who have had similar symptoms. She also reports some right-sided abdominal pain. She has vomited, however she has had morning sickness since that this has been chronic for several weeks. No diarrhea. Still tolerating oral intake well. No chest pain or shortness of breath. She is concerned that the viral illness may have spread to the baby. She is still feeling baby moving and has not had any vaginal bleeding. She does report some slight dysuria without hematuria. Last bowel movement was this morning and was normal. Related Data Home Medications Medication Instructions Recorded Confirmed dorzolamide 22.3 mg-timolol 6.8 1 drp ophthalmic (eye) 06/15/21 12/06/23 mg/mL eye drops brimonidine 0.2 % eye drops drp Eye-Both BID 11/09/23 12/06/23 fluorometholone 0.1 % eye drp Eye-Both ONCE 11/09/23 12/06/23 drops,suspension vits no.126-ferrous fum 1 tab PO DAILY 12/06/23 12/06/23 28 mg iron-folic acid 800 mcg tablet (Classic ) Previous Rx's Medication Instructions Recorded promethazine 12.5 mg tablet 12.5 mg PO Q4-6H PRN nausea and 11/28/23 vomiting #30 tabs promethazine 12.5 mg rectal 12.5 mg AL Q6H PRN nausea and 11/29/23 suppository vomiting #12 ea potassium chloride 20 mEq 20 meq PO DAILY #30 tabs 12/06/23 tablet,extended release Allergies Allergy/AdvReac Type Severity Reaction Status Date / Time No Known Drug Allergies Allergy Unknown -- Verified 12/06/23 15:25 REPLACED BY [facility] <Nash Camara MD - Last Filed: 12/07/23 16:42> REPLACED BY [facility] Disclaimer: The information contained in this section may have been updated after the patient was seen, as this information can be updated by other users. Medical History Obesity Cataract Surgical History Hx of wisdom tooth extraction Hx of cataract surgery Family History Other No significant family history Social History Smoking Status: Former smoker tobacco type: cigarettes packs per day: 1 second hand exposure: No alcohol intake: current alcohol intake frequency: a few times a week current occupational status: employed Travel in the last 8 weeks: None <Nash Camara MD - Last Filed: 12/07/23 16:42> ROS Obtained: Yes Systems reviewed as appropriate & no additional complaints except as documented Constitutional Constitutional: Reports fatigue Endocrine Endocrine: Reports fatigue Physical Exam <Nash Camara MD - Last Filed: 12/07/23 16:42> General General appearance: alert and in no apparent distress Head Head exam: atraumatic and normocephalic Eye Eye exam: Present PERRL and EOMI ENT ENT exam: Present normal oropharynx (No erythema or exudate) and mucous membranes moist Neck Neck exam: Present full ROM and trachea midline; Absent lymphadenopathy Chest Chest inspection: Present symmetric chest wall rise Respiratory Respiratory exam: Present normal lung sounds bilaterally; Absent respiratory distress, wheezes or stridor Cardiovascular Cardiovascular exam: Present regular rate and normal rhythm Abdominal Exam Abdominal exam: Present soft, distention (Gravid abdomen), tenderness (Primarily right upper quadrant with positive Sherman sign) and Sherman's sign; Absent guarding or rebound Extremities Exam Extremities exam: Present full ROM Neurological Exam Neurological exam: Present alert and oriented X3 Psychiatric Psychiatric exam: Present normal mood Skin Skin exam: Present warm and dry Medical Decision Making <Nash Camara MD - Last Filed: 12/07/23 16:42> Medical Records Medical records reviewed: Yes I reviewed the patient's medical records. [place] Inquiry Pt receiving controlled substance: No Vital Signs: 12/07/23 13:13 12/07/23 13:30 12/07/23 14:24 Temperature 98.6 F Temperature Source Oral Pulse Rate 108 H 95 H Pulse Rate [Left Radial] 104 H Respiratory Rate 18 Blood Pressure 111/74 132/82 Blood Pressure [Right Arm] 115/71 Blood Pressure Mean [Right Arm] 85 Blood Pressure Source [Right Arm] Automatic Cuff Blood Pressure Position [Right Arm] Sitting 02 Sat by Pulse Oximetry 100 98 100 Oxygen Delivery Method Room Air 12/07/23 16:02 12/07/23 16:30 12/07/23 17:00 Temperature Temperature Source Pulse Rate 96 H 89 96 H Pulse Rate [Left Radial] Respiratory Rate Blood Pressure 112/66 117/72 119/82 Blood Pressure [Right Arm] Blood Pressure Mean [Right Arm] Blood Pressure Source [Right Arm] Blood Pressure Position [Right Arm] 02 Sat by Pulse Oximetry 99 98 99 Oxygen Delivery Method Room Air 12/07/23 17:30 Temperature Temperature Source Pulse Rate 99 H Pulse Rate [Left Radial] Respiratory Rate Blood Pressure 129/77 Blood Pressure [Right Arm] Blood Pressure Mean [Right Arm] Blood Pressure Source [Right Arm] Blood Pressure Position [Right Arm] 02 Sat by Pulse Oximetry 99 Oxygen Delivery Method Lab Data Lab Results 12/07/23 13:49: SARS-CoV-2 (PCR) Detected A, Influenza A Untype (PCR) Not detected, Influenza Type B (PCR) Not detected 12/07/23 14:25: Urine Color Yellow, Urine Appearance Clear, Urine pH 6.5, Ur Specific [place] <= 1.005, Urine Protein Negative, Urine Glucose (UA) Negative, Urine Ketones Negative, Urine Blood Negative, Urine Nitrate Negative, Urine Bilirubin Negative, Urine Urobilinogen 0.2, Ur Leukocyte Esterase 1+ A, Urine RBC Occasional, Urine WBC Occasional, Ur Squamous Epith Cells Occasional, Urine Bacteria Trace 12/07/23 16:01: WBC 9.4, RBC 4.51, Hgb 11.9 L, Hct 35.9 L, MCV 79.7 L, MCH 26.4 L, MCHC 33.2, RDW 18.0 H, Plt Count 307, MPV 7.8, Neut % (Auto) 84.2 H, Lymph % (Auto) 8.8 L, Morton % (Auto) 4.9, Eos % (Auto) 1.8, Baso % (Auto) 0.3, Neut # (Auto) 7.9 H, Lymph # (Auto) 0.8, Morton # (Auto) 0.5, Eos # (Auto) 0.2, Baso # (Auto) 0.0, Sodium 134 L, Potassium 3.8, Chloride 104, Carbon Dioxide 28, Anion Gap 5.8, BUN 9, Creatinine 0.60, Estimated Creat Clear 167, Estimated GFR 118, Est GFR ( Amer) 143, Glucose 78, Calcium 9.1, Total Bilirubin 0.3, AST 39 H, ALT 34, Alkaline Phosphatase 113, Total Protein 7.3, Albumin 3.7, Globulin 3.6 H, Albumin/Globulin Ratio 1.0 L, Lipase 62, HCG, Quant [id number] H 12/07/23 16:01 12/07/23 16:01 Orders (Tests/Meds): ED MEDICATIONS Discontinued Medications Generic Name Dose Route Start Last Admin Trade Name Delroy PRN Reason Stop Dose Admin Acetaminophen 1,000 mg 12/07/23 13:40 12/07/23 14:14 Acetaminophen 500mg Tab PO 12/07/23 13:41 1,000 mg ONCE ONE Administration ORDERS Category Date Time Status POCUS Point of Care (ER Only) Stat Exams 12/07/23 13:40 Completed US RUQ [US abdomen limited] Stat Exams 12/07/23 14:18 Completed Beta HCG, Quant [HCG,Quantitative] Stat Lab 12/07/23 16:01 Completed CBC w/Auto Diff [Complete Blood Count Auto Diff] Stat Lab 12/07/23 16:01 Completed CMP [Comprehensive Metabolic Panel] Stat Lab 12/07/23 16:01 Completed Lipase Stat Lab 12/07/23 16:01 Completed Rapid PCR Covid and Flu A/B Stat Lab 12/07/23 13:49 Completed UA [Urinalysis and Microscopic] Stat Lab 12/07/23 14:25 Completed Urine Culture Stat Micro 12/07/23 14:25 Received US Data Findings Narrative: Limited OB ultrasound Indication: -Positive home test Identified structures: -Uterus Findings: Uterus: Definitive IUP/no definitive IUP FHR: 165 [place]: Free fluid absent Impression: -IUP: Present - heart rate: 165 -Ectopic : Absent -Free fluid: Absent Images were saved to permanent archive The study were saved technically adequate CPT Transabdominal: 08809-31 This study was performed by me, and I personally interpreted all images/videos. Based on my clinical judgement, these images were [adequate/inadequate] and [did/did not] necessitate further imaging. Medical Decision Narrative: In summary, this 28-year-old female presents to the emergency department today with viral symptoms and abdominal pain. On initial evaluation patient is resting comfortably no acute distress. She appears warm and well-perfused and pulses are full. Her lung sounds are clear to auscultation bilaterally. Her oropharynx is clear. She does have some congestion and is coughing slightly when I am in the room. She does have reproducible right upper quadrant tenderness. No flank pain.. Differential diagnosis includes but is not limited to viral upper restaurant infection, COVID, cholelithiasis, cholecystitis. Based on these concerns, I promptly performed a bedside ultrasound which demonstrated a viable intrauterine with no free fluid in the abdomen. I was unable to get great views of her right upper quadrant, so sent her for an official right upper quadrant ultrasound which results are pending handoff to oncoming provider. Given the right upper quadrant tenderness, felt reasonable to proceed with abdominal labs including CBC CMP lipase and urinalysis. Hematologic labs are pending. COVID positive on nasopharyngeal swab. The urinalysis I reviewed which demonstrates trace bacteria, but also trace white cells, will reflex to culture favored not to treat at this time, however if bacteria do result from culture, should treat. Patient received Tylenol for treatment. Labs pending handoff to oncoming provider Patient was handed off to oncoming provider on shift for definitive management and disposition. Please see Transfer of Care information completed by oncoming provider for further management and ultimate disposition. <Wyatt Fagan MD - Last Filed: 12/07/23 18:23> Vital Signs: 12/07/23 13:13 12/07/23 13:30 12/07/23 14:24 Temperature 98.6 F Temperature Source Oral Pulse Rate 108 H 95 H Pulse Rate [Left Radial] 104 H Respiratory Rate 18 Blood Pressure 111/74 132/82 Blood Pressure [Right Arm] 115/71 Blood Pressure Mean [Right Arm] 85 Blood Pressure Source [Right Arm] Automatic Cuff Blood Pressure Position [Right Arm] Sitting 02 Sat by Pulse Oximetry 100 98 100 Oxygen Delivery Method Room Air 12/07/23 16:02 12/07/23 16:30 12/07/23 17:00 Temperature Temperature Source Pulse Rate 96 H 89 96 H Pulse Rate [Left Radial] Respiratory Rate Blood Pressure 112/66 117/72 119/82 Blood Pressure [Right Arm] Blood Pressure Mean [Right Arm] Blood Pressure Source [Right Arm] Blood Pressure Position [Right Arm] 02 Sat by Pulse Oximetry 99 98 99 Oxygen Delivery Method Room Air 12/07/23 17:30 Temperature Temperature Source Pulse Rate 99 H Pulse Rate [Left Radial] Respiratory Rate Blood Pressure 129/77 Blood Pressure [Right Arm] Blood Pressure Mean [Right Arm] Blood Pressure Source [Right Arm] Blood Pressure Position [Right Arm] 02 Sat by Pulse Oximetry 99 Oxygen Delivery Method Lab Data Lab Results 12/07/23 13:49: SARS-CoV-2 (PCR) Detected A, Influenza A Untype (PCR) Not detected, Influenza Type B (PCR) Not detected 12/07/23 14:25: Urine Color Yellow, Urine Appearance Clear, Urine pH 6.5, Ur Specific [place] <= 1.005, Urine Protein Negative, Urine Glucose (UA) Negative, Urine Ketones Negative, Urine Blood Negative, Urine Nitrate Negative, Urine Bilirubin Negative, Urine Urobilinogen 0.2, Ur Leukocyte Esterase 1+ A, Urine RBC Occasional, Urine WBC Occasional, Ur Squamous Epith Cells Occasional, Urine Bacteria Trace 12/07/23 16:01: WBC 9.4, RBC 4.51, Hgb 11.9 L, Hct 35.9 L, MCV 79.7 L, MCH 26.4 L, MCHC 33.2, RDW 18.0 H, Plt Count 307, MPV 7.8, Neut % (Auto) 84.2 H, Lymph % (Auto) 8.8 L, Morton % (Auto) 4.9, Eos % (Auto) 1.8, Baso % (Auto) 0.3, Neut # (Auto) 7.9 H, Lymph # (Auto) 0.8, Morton # (Auto) 0.5, Eos # (Auto) 0.2, Baso # (Auto) 0.0, Sodium 134 L, Potassium 3.8, Chloride 104, Carbon Dioxide 28, Anion Gap 5.8, BUN 9, Creatinine 0.60, Estimated Creat Clear 167, Estimated GFR 118, Est GFR ( Amer) 143, Glucose 78, Calcium 9.1, Total Bilirubin 0.3, AST 39 H, ALT 34, Alkaline Phosphatase 113, Total Protein 7.3, Albumin 3.7, Globulin 3.6 H, Albumin/Globulin Ratio 1.0 L, Lipase 62, HCG, Quant [id number] H Orders (Tests/Meds): ED MEDICATIONS Discontinued Medications Generic Name Dose Route Start Last Admin Trade Name Freq PRN Reason Stop Dose Admin Acetaminophen 1,000 mg 12/07/23 13:40 12/07/23 14:14 Acetaminophen 500mg Tab PO 12/07/23 13:41 1,000 mg ONCE ONE Administration ORDERS Category Date Time Status POCUS Point of Care (ER Only) Stat Exams 12/07/23 13:40 Completed US RUQ [US abdomen limited] Stat Exams 12/07/23 14:18 Completed Beta HCG, Quant [HCG,Quantitative] Stat Lab 12/07/23 16:01 Completed CBC w/Auto Diff [Complete Blood Count Auto Diff] Stat Lab 12/07/23 16:01 Completed CMP [Comprehensive Metabolic Panel] Stat Lab 12/07/23 16:01 Completed Lipase Stat Lab 12/07/23 16:01 Completed Rapid PCR Covid and Flu A/B Stat Lab 12/07/23 13:49 Completed UA [Urinalysis and Microscopic] Stat Lab 12/07/23 14:25 Completed Urine Culture Stat Micro 12/07/23 14:25 Received Medical Decision Narrative: In summary, this 28-year-old female presents to the emergency department today with viral symptoms and abdominal pain. On initial evaluation patient is resting comfortably no acute distress. She appears warm and well-perfused and pulses are full. Her lung sounds are clear to auscultation bilaterally. Her oropharynx is clear. She does have some congestion and is coughing slightly when I am in the room. She does have reproducible right upper quadrant tenderness. No flank pain.. Differential diagnosis includes but is not limited to viral upper restaurant infection, COVID, cholelithiasis, cholecystitis. Based on these concerns, I promptly performed a bedside ultrasound which demonstrated a viable intrauterine with no free fluid in the abdomen. I was unable to get great views of her right upper quadrant, so sent her for an official right upper quadrant ultrasound which results are pending handoff to oncoming provider. Given the right upper quadrant tenderness, felt reasonable to proceed with abdominal labs including CBC CMP lipase and urinalysis. Hematologic labs are pending. COVID positive on nasopharyngeal swab. The urinalysis I reviewed which demonstrates trace bacteria, but also trace white cells, will reflex to culture favored not to treat at this time, however if bacteria do result from culture, should treat. Rylan: I assumed primary responsibility for this patient after signout from previous physician. Independent interpretation of workup demonstrates nonactionable CBC or chemistry. hCG 133,000, urinalysis without concern for UTI. Squamous cells, I feel this is what is contributing to the trace bacteria. Bedside [id number] ultrasound performed by previous physician with good heart tones. Right upper quadrant ultrasound without acute abnormality. Because patient at baseline without signs or symptoms of clinical decompensation, deemed appropriate for discharge. Results were relayed to patient who voiced understanding and were agreeable to outpatient management and follow up. I discussed my clinical impression with patient and answered all questions. At this time, the evidence for any other entities in the differential is insufficient to warrant any further testing or ED observation. This was explained as well. Advisory was given that persistent or worsening symptoms require further evaluation. I confirmed the understanding of this discussion. Patient received Tylenol for treatment. Labs pending handoff to oncoming provider Patient was handed off to oncoming provider on shift for definitive management and disposition. Please see Transfer of Care information completed by oncoming provider for further management and ultimate disposition. Critical Care <Nash Camara MD - Last Filed: 12/07/23 16:42> Critical Care Time Critical Care Time: No
[2023-12-07 13:54] LABS: Influenza A, PCR Not Detected (NotDetected); Influenza B, PCR Not Detected (NotDetected)
[2023-12-07] MEDS: ACETAMINOPHEN 500MG TAB 1000 MG PO (14:14)
--- NOTE | 2023-12-07 14:18 | US_ITS ---
PROCEDURE INFORMATION: Exam: US Abdomen, Limited; Right Upper Quadrant Exam date and time: 12/07/2023 2:22 PM Age: 28 years old Clinical indication: Abdominal pain; Other: Ruq; ; Additional info: Ruq ttp, eval gb, cbd TECHNIQUE: Imaging protocol: Real time ultrasound of the abdomen with image documentation. Limited exam focused on the right upper quadrant. COMPARISON: CT ABDOMEN PELVIS W CON 07/28/2022 8:53 AM FINDINGS: Liver: Normal. No masses. Gallbladder: Normal. No gallstones. There is no gallbladder wall thickening. Biliary ducts: Normal. No stones. No dilation. Pancreas: Visualized pancreas is unremarkable. Right kidney: Normal. No mass. No hydronephrosis. IMPRESSION: No acute findings.
[2023-12-07 14:20] LABS: Coronavirus 19, PCR Detected (NotDetected)
[2023-12-07 14:28] LABS: Microscopic, Urine URINE MICROSCOPIC (MICROSCOPIC)
--- NOTE | 2023-12-07 14:33 | PC.NURSE ---
pt is gone to ultra sound
[2023-12-07 14:34] LABS: Appearance,Urine CLEAR (Clear); Bilirubin,Urine Negative (Negative); Blood, Urine Negative (Negative); Color,Urine YELLOW (Yellow); Glucose,Urine (UA) Negative (Negative); Ketones,Urine Negative (Negative); Leukocyte Esterase,Urine 1+ (Negative); Nitrate,Urine Negative (Negative); PH,Urine 6.5 (5.0-8.5); Protein,Urine Negative (Negative); Specific Gravity, Urine <= 1.005 (1.005-1.030); Urobilinogen,Urine 0.2 EU/dl (0.2)
--- NOTE | 2023-12-07 14:45 | PC.NURSE ---
pt arrived back to room from [facility]
[2023-12-07 14:46] LABS: Bacteria,Urine Trace /lpf; RBC,Urine Occasional #/hpf (0-3); Squamous Epithelial Cell,Urine Occasional #/hpf (0-5); WBC,Urine Occasional #/hpf (0-3)
[2023-12-07 16:11] LABS: Basophils % 0.3 % (0.1-2.0); Eosinophils # 0.2 K/mm3 (0.0-0.4); Eosinophils % 1.8 % (0.1-12.0); Hematocrit 35.9 % (37.0-47.0); Hemoglobin 11.9 g/dL (12.2-16.2); Lymphocytes # 0.8 K/mm3 (0.7-4.5); Lymphocytes % 8.8 % (10-50); Mean Corpuscular HGB Conc 33.2 g/dL (31.8-35.4); Mean Corpuscular Hemoglobin 26.4 pg (27.0-31.2); Mean Corpuscular Volume 79.7 fl (81-99); Mean Platelet Volume 7.8 fl (7.4-10.4); Monocytes # 0.5 K/mm3 (0.1-1.0); Monocytes % 4.9 % (1.7-9.3); Neutrophils # 7.9 K/mm3 (1.8-7.8); Neutrophils % 84.2 % (37.0-80.0); Platelet Count 307 K/mm3 (142-424); Red Blood Count 4.51 M/mm3 (4.20-5.40); White Blood Count 9.4 K/mm3 (4.8-10.8)
[2023-12-07 16:19] LABS: Chloride 104 mmol/L (98-107); Sodium 134 mmol/L (136-145)
[2023-12-07 16:20] LABS: Potassium 3.8 mmoL/L (3.5-5.1)
[2023-12-07 16:22] LABS: Alanine Aminotransferase 34 U/L (12-78); Albumin Level 3.7 g/dl (3.5-5.0); Alkaline Phosphatase 113 U/L (38-126); Anion Gap 5.8 mEq/L (5-15); Aspartate Amino Transferase 39 U/L (14-36); Bilirubin,Total 0.3 mg/dl (0.2-1.3); Blood Urea Nitrogen 9 mg/dl (7-17); Calcium 9.1 mg/dl (8.4-10.2); Carbon Dioxide 28 mmol/L (22.0-30.0); Creatinine Clearance Estimated 167 mL/min (50-200); Estimated Glomerular Filt Rate 118 ml/min (>60); GFR (African American) 143 ML/MIN (>60); Globulin 3.6 g/dL (1.3-3.2); Glucose 78 mg/dl (74-100); Lipase 62 U/L (23-300); Total Protein,Serum 7.3 g/dl (6.3-8.2)
[2023-12-07 17:08] LABS: HCG,Quantitative 133320 mIU/ml (0-5.42)
== END 2023-12-07 18:29 | disposition home or self-care (01) ==
PROVIDERS: Emergency Provider Emergency Medicine; PCP Physician Assistant
DX: O98.512 Other viral diseases complicating pregnancy, second trimester (principal); U07.1 COVID-19; R10.11 Right upper quadrant pain; R05.9 Cough, unspecified; R07.0 Pain in throat; R09.81 Nasal congestion; B96.89 Other specified bacterial agents as the cause of diseases classified elsewhere; Z3A.13 13 weeks gestation of pregnancy
CPT/HCPCS: 76705; 80053; 81001; 83690; 84702; 85025; 87086; 87636; 99285

== ENCOUNTER 2023-12-08 14:30 | Emergency (ER) | payer BC, SELFPAY ==
[2023-12-08 14:32] VITALS: BP 126/79; PULSE 81; RESP 16; TEMP 36.9; O2SAT 99; BMI 29.2
--- NOTE | 2023-12-08 15:44 | [facility].EDGENADL ---
Discharge Plan Disposition Patient Disposition: Home, Self-Care Prescriptions Prescriptions: New metoclopramide HCl [Reglan] 10 mg tablet 10 mg PO Q6H PRN (Reason: nausea and vomiting) Qty: 14 0RF No Action brimonidine 0.2 % drops Eye-Both BID Patient Comments: INSTILL 1 DROP INTO EACH EYE TWICE DAILY DIRECTED fluorometholone 0.1 % drops,suspension Eye-Both ONCE Patient Comments: INSTILL 1 DROP INTO EACH EYE TWICE DAILY dorzolamide-timolol 22.3-6.8 mg/mL drops 1 drp OPHTHALMIC Classic 28 mg iron- 800 mcg tablet 1 tab PO DAILY potassium chloride 20 mEq tablet extended release 20 meq PO DAILY Qty: 30 2RF promethazine 12.5 mg tablet 12.5 mg PO Q4-6H PRN (Reason: nausea and vomiting) Qty: 30 2RF promethazine 12.5 mg suppository 12.5 mg [place] Q6H PRN (Reason: nausea and vomiting) Qty: 12 1RF Referrals Follow up/Referrals: Brianda Wall PA [Primary Care Provider] - See instructions Activity Restrictions/Add. Instructions Additional Instructions/Restrictions: Take Reglan instead of Zofran or Phenergan. Call your family doctor to establish care for this visit to the emergency department and schedule follow-up within 48 hours to ensure improvement. If you have any worsening of your condition or any other concerning signs or symptoms, return to the emergency department or your primary care doctor for further evaluation. Clinical Impressions Clinical Impression: Hyperemesis gravidarum Instructions Patient Instructions: DI for Diarrhea and Traveler's Diarrhea -- Adult, DI for Diarrhea and Traveler's Diarrhea -- Child, DI for Nausea -- Adult, DI for Nausea -- Child Discharge ED Provider: Wyatt Fagan General Adult HPI General Chief complaint: Nausea/Vomiting/Diarrhea Stated complaint: 13 weeks covid postive vomiting Time Seen by Provider: 12/08/23 15:14 Mode of Arrival: Ambulatory Source of Information: Patient Limitations: No Limitations Description of Symptoms (Recalled from ER Triage Doc. by RN): nausea and vomiting since this morning History of Present Illness HPI narrative: Please note that above description of symptoms, in this electronic medical record under categorization of recalled from ER triage doctor by RN are reflective of an initial nursing assessment, however, is not reflective of my full history and physical exam that was personally taken and clarified. Consequentially, this preceding description of symptoms, which may include the patient's categorized chief complaint in the EMR, do not reflect my personal clinical impression, and the ultimate description of history of present illness and patient stated complaints should be deferred to this section of the note. Unless stated otherwise or congruent with this section of the note, additional signs, symptoms, or incongruence should be interpreted as inaccurate with my clinical impression. Related Data Home Medications Medication Instructions Recorded Confirmed dorzolamide 22.3 mg-timolol 6.8 1 drp ophthalmic (eye) 06/15/21 12/06/23 mg/mL eye drops brimonidine 0.2 % eye drops drp Eye-Both BID 11/09/23 12/06/23 fluorometholone 0.1 % eye drp Eye-Both ONCE 11/09/23 12/06/23 drops,suspension vits no.126-ferrous fum 1 tab PO DAILY 12/06/23 12/06/23 28 mg iron-folic acid 800 mcg tablet (Classic ) Previous Rx's Medication Instructions Recorded promethazine 12.5 mg tablet 12.5 mg PO Q4-6H PRN nausea and 11/28/23 vomiting #30 tabs promethazine 12.5 mg rectal 12.5 mg [place] Q6H PRN nausea and 11/29/23 suppository vomiting #12 ea potassium chloride 20 mEq 20 meq PO DAILY #30 tabs 12/06/23 tablet,extended release metoclopramide HCl 10 mg tablet 10 mg PO Q6H PRN nausea and 12/08/23 (Reglan) vomiting #14 tabs Allergies Allergy/AdvReac Type Severity Reaction Status Date / Time No Known Drug Allergies Allergy Unknown -- Verified 12/06/23 15:25 [facility] Disclaimer: The information contained in this section may have been updated after the patient was seen, as this information can be updated by other users. Medical History Obesity Cataract Surgical History Hx of wisdom tooth extraction Hx of cataract surgery Family History Other No significant family history Social History Smoking Status: Never smoker second hand exposure: No alcohol intake: current alcohol intake frequency: a few times a week current occupational status: employed Travel in the last 8 weeks: None ROS Obtained: Yes All systems reviewed & no additional complaints except as documented Physical Exam General General appearance: alert Head Head exam: atraumatic and normocephalic Eye Eye exam: Present normal appearance, PERRL and EOMI Neck Neck exam: Present normal inspection, full ROM and trachea midline Respiratory Respiratory exam: Absent respiratory distress, wheezes, stridor, accessory muscle use or prolonged expiratory phase Cardiovascular Cardiovascular exam: Present regular rate, normal rhythm and other (Pulses equal symmetric in upper and lower extremities) Abdominal Exam Abdominal exam: Present soft and organomegaly (Palpable uterus below umbilicus); Absent distention, tenderness, guarding, rebound or pulsatile mass Extremities Exam Extremities exam: Absent edema Neurological Exam Neurological exam: Present alert, oriented X3 and CN II-XII intact; Absent motor sensory deficit Skin Skin exam: Present warm and dry; Absent diaphoresis or erythema Medical Decision Making Medical Records Medical records reviewed: Yes I reviewed the patient's medical records. [place] Inquiry Pt receiving controlled substance: No [place] was queried for this patient: No Vital Signs: 12/08/23 14:32 Temperature 98.5 F Temperature Source Oral Pulse Rate [Right] 81 Respiratory Rate 16 Blood Pressure [Right Arm] 126/79 Blood Pressure Mean [Right Arm] 94 02 Sat by Pulse Oximetry 99 Oxygen Delivery Method Room Air Lab Data Lab Results 12/08/23 15:35: WBC 5.3 D, RBC 4.06 L, Hgb 11.5 L, Hct 32.5 L, MCV 79.9 L, MCH 28.2, MCHC 35.3, RDW 18.3 H, Plt Count 259, MPV 7.7, Neut % (Auto) 73.2, Lymph % (Auto) 15.6, [place] % (Auto) 10.0 H, Eos % (Auto) 0.4, Baso % (Auto) 0.7, Neut # (Auto) 3.9, Lymph # (Auto) 0.8, [place] # (Auto) 0.5, Eos # (Auto) 0.0, Baso # (Auto) 0.0, Sodium 133 L, Potassium 3.5, Chloride 103, Carbon Dioxide 25, Anion Gap 8.5, BUN 5 L D, Creatinine 0.50 L, Estimated Creat Clear 190, Estimated GFR 146, Est GFR ( Amer) 177 D, Glucose 84, Calcium 8.9, Total Bilirubin 0.4, AST 70 H D, ALT 60 D, Alkaline Phosphatase 137 H, Total Protein 7.3, Albumin 3.7, Globulin 3.6 H, Albumin/Globulin Ratio 1.0 L 12/08/23 17:08: Urine Color Yellow, Urine Appearance Clear, Urine pH 7.0, Ur Specific [place] 1.010, Urine Protein Negative, Urine Glucose (UA) Negative, Urine Ketones Trace, Urine Blood Negative, Urine Nitrate Negative, Urine Bilirubin Negative, Urine Urobilinogen 0.2, Ur Leukocyte Esterase 1+ A, Urine RBC None, Urine WBC 3-5, Ur Squamous Epith Cells 10-20, Urine Bacteria None 12/08/23 15:35 12/08/23 15:35 Orders (Tests/Meds): ED MEDICATIONS Discontinued Medications Generic Name Dose Route Start Last Admin Trade Name Danteq PRN Reason Stop Dose Admin Acetaminophen 1,000 mg 12/08/23 17:14 12/08/23 17:57 Acetaminophen 1,000mg/100ml Vial IV 12/08/23 17:15 1,000 mg ONCE ONE Administration Lactated Ringer's 1,000 mls @ 999 mls/hr 12/08/23 15:14 12/08/23 17:56 Lactated Ringer's 1000 Ml Bag IV 12/08/23 16:14 Not Given .Q1H1M ONE Multivitamins 10 ml/ Thiamine 1,015 mls @ 500 mls/hr 12/08/23 15:35 12/08/23 16:08 HCl 100 mg/ Magnesium Sulfate IV 12/08/23 17:36 500 mls/hr 2 gm/ Lactated Ringer's .Q2H2M ONE Administration Metoclopramide HCl 10 mg 12/08/23 17:14 12/08/23 17:57 Metoclopramide Hcl 10mg/2ml Vial IVP 12/08/23 17:15 10 mg ONCE ONE Administration Ondansetron HCl 4 mg 12/08/23 15:14 12/08/23 16:09 Ondansetron 4mg/2ml Vial IV 12/08/23 15:15 4 mg ONCE ONE Administration ORDERS Category Date Time Status CBC w/Auto Diff [Complete Blood Count Auto Diff] Stat Lab 12/08/23 15:35 Completed CMP [Comprehensive Metabolic Panel] Stat Lab 12/08/23 15:35 Completed UA [Urinalysis and Microscopic] Stat Lab 12/08/23 17:08 Completed Urine Culture Stat Micro 12/08/23 17:08 Received Medical Decision Narrative: 28-year-old female G3, P2 currently 12 weeks presenting with vomiting and concern for dehydration. Patient has not been able to keep anything down including solids, liquids, or vitamin. Is been going on since yesterday, 12/06. Came to the emergency department. Was able to tolerate p.o. intake at that time, sent home with supportive care and outpatient management. Since that time unable to tolerate any p.o. intake. No rashes of fluid, vaginal bleeding, cramping, or any other OB concerns. Just feels weak. Called her OBs office, OB instructed her to come to the emergency department if she is concern for severe dehydration. History was obtained via conversation with patient. On arrival, patient hemodynamically stable, alert, oriented x4, appropriate, GCS 15, moving all extremities spontaneously, pupils equal and reactive to light. Full physical exam performed and significant for very well-appearing girl who is in no acute distress. Nontachycardic, abdomen is soft, nontender, nondistended. Palpable uterus below the umbilicus. No flank tenderness. She is afebrile and normotensive. Differential includes hyperemesis gravidarum, pancreatitis, dehydration, gastritis, among others. Patient was placed in observation beginning at 2:45 PM in order to given IV fluids, IV multivitamin, folate, magnesium and a test ability to take p.o. for symptomatic management and correction of underlying abnormalities. and determine need for admission versus home-going. The patient was provided medications and serial exams while awaiting results. Independent interpretation of results demonstrated Workup independently interpreted and significant for Nonactionable CBC. Mildly elevated LFTs, but nonactionable. Patient's bilirubin normal. No anion gap. Nonactionable CBC. On review patient, patient feeling much better in terms of nausea, but now has headache. Reglan and acetaminophen given. Urinalysis demonstrated no evidence of UTI. at this time, I feel patient is appropriate for discharge. Total observation time 4 hours. Because patient at baseline without signs or symptoms of clinical decompensation, deemed appropriate for discharge. Results were relayed to patient who voiced understanding and were agreeable to outpatient management and follow up. I discussed my clinical impression with patient and answered all questions. At this time, the evidence for any other entities in the differential is insufficient to warrant any further testing or ED observation. This was explained as well. Advisory was given that persistent or worsening symptoms require further evaluation. I confirmed the understanding of this discussion. Sailing Instructor disclaimer Much of this encounter note is an electronic compliance professional spoken language to printed text. Electronic compliance professional of the spoken language may permit errors. Although I have reviewed the note, some errors may still exist. Critical Care Critical Care Time Critical Care Time: No
[2023-12-08 16:05] LABS: Basophils % 0.7 % (0.1-2.0); Eosinophils % 0.4 % (0.1-12.0); Hematocrit 32.5 % (37.0-47.0); Hemoglobin 11.5 g/dL (12.2-16.2); Lymphocytes # 0.8 K/mm3 (0.7-4.5); Lymphocytes % 15.6 % (10-50); Mean Corpuscular HGB Conc 35.3 g/dL (31.8-35.4); Mean Corpuscular Hemoglobin 28.2 pg (27.0-31.2); Mean Corpuscular Volume 79.9 fl (81-99); Mean Platelet Volume 7.7 fl (7.4-10.4); Monocytes # 0.5 K/mm3 (0.1-1.0); Neutrophils # 3.9 K/mm3 (1.8-7.8); Neutrophils % 73.2 % (37.0-80.0); Platelet Count 259 K/mm3 (142-424); Red Blood Count 4.06 M/mm3 (4.20-5.40); Red Cell Distribution Width 18.3 % (11.5-17.5); White Blood Count 5.3 K/mm3 (4.8-10.8)
[2023-12-08 16:08] LABS: Alanine Aminotransferase 60 U/L (12-78); Albumin Level 3.7 g/dl (3.5-5.0); Alkaline Phosphatase 137 U/L (38-126); Anion Gap 8.5 mEq/L (5-15); Aspartate Amino Transferase 70 U/L (14-36); Bilirubin,Total 0.4 mg/dl (0.2-1.3); Blood Urea Nitrogen 5 mg/dl (7-17); Calcium 8.9 mg/dl (8.4-10.2); Carbon Dioxide 25 mmol/L (22.0-30.0); Chloride 103 mmol/L (98-107); Creatinine Clearance Estimated 190 mL/min (50-200); Estimated Glomerular Filt Rate 146 ml/min (>60); GFR (African American) 177 ML/MIN (>60); Globulin 3.6 g/dL (1.3-3.2); Glucose 84 mg/dl (74-100); Potassium 3.5 mmoL/L (3.5-5.1); Sodium 133 mmol/L (136-145); Total Protein,Serum 7.3 g/dl (6.3-8.2)
[2023-12-08] MEDS: MVI, ADULT NO.1 WITH VIT K 10 ML, THIAMINE HCL 100 MG, MAGNESIUM SULFATE 2 GM in LACTAT... 500 ML IV (16:08)
[2023-12-08] MEDS: ONDANSETRON 4MG/2ML VIAL 4 MG IV (16:09)
[2023-12-08 17:17] LABS: Microscopic, Urine URINE MICROSCOPIC (MICROSCOPIC)
[2023-12-08 17:21] LABS: Appearance,Urine CLEAR (Clear); Bilirubin,Urine Negative (Negative); Blood, Urine Negative (Negative); Color,Urine YELLOW (Yellow); Glucose,Urine (UA) Negative (Negative); Ketones,Urine TRACE (Negative); Leukocyte Esterase,Urine 1+ (Negative); Nitrate,Urine Negative (Negative); Protein,Urine Negative (Negative); Urobilinogen,Urine 0.2 EU/dl (0.2)
[2023-12-08] MEDS: METOCLOPRAMIDE HCL 10MG/2ML VIAL 10 MG IVP (17:57)
[2023-12-08] MEDS: ACETAMINOPHEN 1,000MG/100ML VIAL 1000 MG IV (17:57)
[2023-12-08 19:05] VITALS: BP 102/58; PULSE 74; RESP 16; TEMP 36.6; O2SAT 97
== END 2023-12-08 19:06 | disposition home or self-care (01) ==
PROVIDERS: Emergency Provider Emergency Medicine; PCP Physician Assistant
DX: O21.1 Hyperemesis gravidarum with metabolic disturbance (principal); R94.5 Abnormal results of liver function studies; R51.9 Headache, unspecified; B96.89 Other specified bacterial agents as the cause of diseases classified elsewhere; Z3A.13 13 weeks gestation of pregnancy
CPT/HCPCS: 80053; 81001; 85025; 87086; 96365; 96366; 96375; 99284; J0131; J2405; J2765; J3411; J7120

== ENCOUNTER 2024-01-01 17:15 | Emergency (ER) | payer BC, SELFPAY ==
[2024-01-01 17:16] VITALS: BP 126/75; PULSE 87; RESP 16; TEMP 36.6; O2SAT 99; BMI 29.8
--- NOTE | 2024-01-01 17:24 | ED_ITS ---
<Statement entered by Margarette Banks MD - 01/03/24 22:44> I was consulted by the EDUAR, and we discussed the complexity of the problems being addressed. I approved the treatment and management plan for this patient's care in the emergency department, thus performing a substantive portion of the medical decision making. Margarette Banks MD, STEFANIE, FACEP Discharge Plan Disposition Patient Disposition: Home, Self-Care Condition: Good Prescriptions Prescriptions: New nitrofurantoin monohyd/m-cryst 100 mg capsule 100 mg PO BID 5 Days Qty: 10 0RF Rx Instructions: must administer with a meal/food lidocaine 5 % adhesive patch,medicated 1 patch topical DAILY Qty: 30 0RF Rx Instructions: leave on most painful area for up to 12 hrs No Action brimonidine 0.2 % drops Eye-Both BID Patient Comments: INSTILL 1 DROP INTO EACH EYE TWICE DAILY DIRECTED fluorometholone 0.1 % drops,suspension Eye-Both ONCE Patient Comments: INSTILL 1 DROP INTO EACH EYE TWICE DAILY dorzolamide-timolol 22.3-6.8 mg/mL drops 1 drp OPHTHALMIC Classic 28 mg iron- 800 mcg tablet 1 tab PO DAILY potassium chloride 20 mEq tablet extended release 20 meq PO DAILY Qty: 30 2RF promethazine 12.5 mg tablet 12.5 mg PO Q4-6H PRN (Reason: nausea and vomiting) Qty: 30 2RF promethazine 12.5 mg suppository 12.5 mg [place] Q6H PRN (Reason: nausea and vomiting) Qty: 12 1RF metoclopramide HCl [Reglan] 10 mg tablet 10 mg PO Q6H PRN (Reason: nausea and vomiting) Qty: 14 0RF Referrals Follow up/Referrals: Brianda Wall PA [Primary Care Provider] - See instructions Activity Restrictions/Add. Instructions Additional Instructions/Restrictions: Follow-up with your PCP in 48 hours for recheck of your potassium and magnesium. Return to ER for any worsening signs or symptoms as needed. You may take Tylenol 1000 mg every 8 hours as needed for aches and pains. I have sent a prescription into your pharmacy to treat your urinary tract infection. Clinical Impressions Clinical Impression: Hypomagnesemia, Hypokalemia UTI (urinary tract infection) Qualifiers: Urinary tract infection type: site unspecified Hematuria presence: without hematuria Qualified Code(s): N39.0 - Urinary tract infection, site not specified Stand Alone Forms Stand Alone Forms: Work/School Release Instructions Patient Instructions: DI for Neck Pain Print Language Print Language: Faroese Discharge ED Provider: Margarette Banks General Adult HPI <SHEN Diop - Last Filed: 01/01/24 23:56> General Chief complaint: Neck Pain/Injury Stated complaint: 16 weeks preg, cramping, neck pain, not urinating Time Seen by Provider: 01/01/24 17:24 History of Present Illness HPI narrative: Patient presents for evaluation of neck pain back pain and abdominal cramping along with decreased urination. 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 Patient reports that she has had neck pain and bilateral lower back pain for approximately 1 week. Patient states he gets better with Tylenol and comes back when she stops taking it. Today however patient reports suprapubic cramping. She does follow-up with Dr. Appiah and has a thus far normal intrauterine has been uncomplicated. She denies fever chills hemoptysis hematochezia melena nausea vomiting diarrhea. She denies any vaginal discharge spotting or bleeding. Related Data Home Medications ?Medication ?Instructions ?Recorded ?Confirmed dorzolamide 22.3 mg-timolol 6.8 1 drp ophthalmic (eye) 06/15/21 12/06/23 mg/mL eye drops brimonidine 0.2 % eye drops drp Eye-Both BID 11/09/23 12/06/23 fluorometholone 0.1 % eye drp Eye-Both ONCE 11/09/23 12/06/23 drops,suspension vits no.126-ferrous fum 1 tab PO DAILY 12/06/23 12/06/23 28 mg iron-folic acid 800 mcg tablet (Classic ) Previous Rx's ?Medication ?Instructions ?Recorded promethazine 12.5 mg tablet 12.5 mg PO Q4-6H PRN nausea and 11/28/23 vomiting #30 tabs promethazine 12.5 mg rectal 12.5 mg [place] Q6H PRN nausea and 11/29/23 suppository vomiting #12 ea potassium chloride 20 mEq 20 meq PO DAILY #30 tabs 12/06/23 tablet,extended release metoclopramide HCl 10 mg tablet 10 mg PO Q6H PRN nausea and 12/08/23 (Reglan) vomiting #14 tabs lidocaine 5 % topical patch 1 patch topical DAILY #30 ea 01/01/24 nitrofurantoin 100 mg PO BID 5 days #10 caps 01/01/24 monohydrate/macrocrystals 100 mg capsule Allergies Allergy/AdvReac Type Severity Reaction Status Date / Time No Known Drug Allergies Allergy Unknown -- Verified 12/06/23 15:25 PFS <SHEN Diop - Last Filed: 01/01/24 23:56> [facility] Disclaimer: The information contained in this section may have been updated after the patient was seen, as this information can be updated by other users. Medical History Obesity Cataract Surgical History Hx of wisdom tooth extraction Hx of cataract surgery Family History Other No significant family history Social History Smoking Status: Never smoker second hand exposure: No alcohol intake: current alcohol intake frequency: a few times a week current occupational status: employed Travel in the last 8 weeks: None <SHEN Diop - Last Filed: 01/01/24 23:56> ROS Obtained: Yes Systems reviewed as appropriate & no additional complaints except as documented Physical Exam <SHEN Diop Last Filed: 01/01/24 23:56> General General appearance: alert and in no apparent distress Neck Neck exam: Present normal inspection, full ROM and tenderness (Right greater than left trapezius muscles but no midline tenderness) Respiratory Respiratory exam: Present normal lung sounds bilaterally Cardiovascular Cardiovascular exam: Present regular rate and normal rhythm Abdominal Exam Abdominal exam: Present soft, tenderness (Mild suprapubic tenderness to palpation) and normal bowel sounds; Absent guarding, rebound or rigidity Extremities Exam Extremities exam: Present normal inspection and full ROM Back Exam Back exam: Present normal inspection, full ROM and tenderness (Bilateral lumbar paraspinous muscle tenderness to palpation but no dorsal spine tenderness in the midline) Neurological Exam Neurological exam: Present alert and oriented X3 Medical Decision Making <SHEN Diop - Last Filed: 01/01/24 23:56> Medical Records Medical records reviewed: Yes I reviewed the patient's medical records. Chinedu Durham Pt receiving controlled substance: No Vital Signs: 01/01/24 17:16 01/01/24 19:54 Temperature 97.8 F 98.7 F Temperature Source Oral Oral Pulse Rate 89 Pulse Rate [Radial] 87 Respiratory Rate 16 18 Blood Pressure 118/73 Blood Pressure [Right Arm] 126/75 Blood Pressure Mean [Right Arm] 92 Blood Pressure Source Automatic Cuff Blood Pressure Source [Right Arm] Automatic Cuff Blood Pressure Position Sitting Blood Pressure Position [Right Arm] Sitting 02 Sat by Pulse Oximetry 99 Oxygen Delivery Method Room Air Room Air Lab Data Lab results reviewed: Yes I reviewed the patient's lab results. Lab Results 01/01/24 17:45: WBC 7.7, RBC 3.91 L, Hgb 10.7 L, Hct 32.0 L, MCV 81.8, MCH 27.5, MCHC 33.6, RDW 19.4 H, Plt Count 316, MPV 8.1, Neut % (Auto) 72.0, Lymph % (Auto) 19.4, Kay % (Auto) 5.5, Eos % (Auto) 2.5, Baso % (Auto) 0.6, Neut # (Auto) 5.6, Lymph # (Auto) 1.5, Kay # (Auto) 0.4, Eos # (Auto) 0.2, Baso # (Auto) 0.0, Sodium 135 L, Potassium 3.2 L, Chloride 106, Carbon Dioxide 24, Anion Gap 8.2, BUN 5 L, Creatinine 0.40 L, Estimated Creat Clear 242, Estimated GFR 189, Est GFR ( Amer) 228, Glucose 130 H, Calcium 8.8, Magnesium 1.5 L , Total Bilirubin 0.3, AST 41 H, ALT 38, Alkaline Phosphatase 84, Total Protein 6.3, Albumin 3.0 L, Globulin 3.3 H, Albumin/Globulin Ratio 0.9 L, HCG, Quant [id number] H 01/01/24 18:15: Urine Color Yellow, Urine Appearance Clear, Urine pH 7.0, Ur Specific [place] <= 1.005, Urine Protein Negative, Urine Glucose (UA) Negative, Urine Ketones Negative, Urine Blood Negative, Urine Nitrate Negative, Urine Bilirubin Negative, Urine Urobilinogen 0.2, Ur Leukocyte Esterase 1+ A, Urine RBC 5-10, Urine WBC 10-20, Ur Squamous Epith Cells 20-50, Urine Bacteria 3+, Urine Yeast 1+ 01/01/24 17:45 01/01/24 17:45 Orders (Tests/Meds): ED MEDICATIONS Discontinued Medications Generic Name Dose Route Start Last Admin Trade Name Freq PRN Reason Stop Dose Admin Acetaminophen 1,000 mg 01/01/24 17:55 01/01/24 18:07 Acetaminophen 500mg Tab PO 01/01/24 17:56 1,000 mg ONCE ONE Administration Lidocaine 1 each 01/01/24 17:55 01/01/24 18:07 Lidocaine 5% Transdermal Patch TP 01/01/24 17:56 1 each ONCE ONE Administration Magnesium Oxide 800 mg 01/01/24 18:33 01/01/24 18:48 Magnesium Oxide 400mg Tablet PO 01/01/24 18:34 800 mg ONCE ONE Administration Nitrofurantoin Macrocrystals 100 mg 01/01/24 19:19 01/01/24 19:29 Nitrofurantoin 100mg Capsule PO 01/01/24 19:20 100 mg ONCE ONE Administration Potassium Chloride 60 meq 01/01/24 19:22 01/01/24 19:29 Potassium Chloride 20meq Tab PO 01/01/24 19:23 60 meq ONCE ONE Administration ORDERS Category Date Time Status POCUS Point of Care (ER Only) Stat Exams 01/01/24 17:54 Completed CBC w/Auto Diff [Complete Blood Count Auto Diff] Stat Lab 01/01/24 17:45 Completed CMP [Comprehensive Metabolic Panel] Stat Lab 01/01/24 17:45 Completed HCG,Quantitative Stat Lab 01/01/24 17:45 Completed Magnesium Stat Lab 01/01/24 17:45 Completed UA [Urinalysis and Microscopic] Stat Lab 01/01/24 18:15 Completed Urine Culture Stat Micro 01/01/24 18:15 Received Medical Decision Narrative: In summary patient is a 28-year-old female who presents to the emergency department for evaluation of neck pain lumbar back pain and suprapubic tenderness. Patient is hemodynamically stable upon arrival, afebrile. Physical exam is remarkable for tenderness to palpation in the bilateral trapezius muscles of the neck and lumbar paraspinous muscles but no dorsal spine tenderness no painful range of motion no nuchal rigidity. Patient also has tenderness to palpation in suprapubic area with no rebound or guarding rigidity. Bowel sounds normal active. POCUS exam shows no distress and normal heart tones. Differential diagnosis includes constipation versus UTI versus pyelonephritis versus torticollis etc. Initial workup will be conducted with hematologic labs POCUS urinalysis. Initial interventions include Tylenol and lidocaine patch. Initial workup reviewed by me shows that her hematologic labs are nonactionable she does have a urinary tract infection and again POCUS exam did not reveal any abnormalities with her . Upon repeat evaluation had complete resolution of her back pain and neck pain after initial intervention. Given this patient is appropriate for discharge with prescription for a prescription for nitrofurantoin and with first dose given here and close follow-up with [employer] [employer]. <Margarette Banks MD - Last Filed: 01/01/24 22:49> Vital Signs: 01/01/24 17:16 01/01/24 19:54 Temperature 97.8 F 98.7 F Temperature Source Oral Oral Pulse Rate 89 Pulse Rate [Radial] 87 Respiratory Rate 16 18 Blood Pressure 118/73 Blood Pressure [Right Arm] 126/75 Blood Pressure Mean [Right Arm] 92 Blood Pressure Source Automatic Cuff Blood Pressure Source [Right Arm] Automatic Cuff Blood Pressure Position Sitting Blood Pressure Position [Right Arm] Sitting 02 Sat by Pulse Oximetry 99 Oxygen Delivery Method Room Air Room Air Lab Data Lab Results 01/01/24 17:45: WBC 7.7, RBC 3.91 L, Hgb 10.7 L, Hct 32.0 L, MCV 81.8, MCH 27.5, MCHC 33.6, RDW 19.4 H, Plt Count 316, MPV 8.1, Neut % (Auto) 72.0, Lymph % (Auto) 19.4, Kay % (Auto) 5.5, Eos % (Auto) 2.5, Baso % (Auto) 0.6, Neut # (Auto) 5.6, Lymph # (Auto) 1.5, Kay # (Auto) 0.4, Eos # (Auto) 0.2, Baso # (Auto) 0.0, Sodium 135 L, Potassium 3.2 L, Chloride 106, Carbon Dioxide 24, Anion Gap 8.2, BUN 5 L, Creatinine 0.40 L, Estimated Creat Clear 242, Estimated GFR 189, Est GFR ( Amer) 228, Glucose 130 H, Calcium 8.8, Magnesium 1.5 L , Total Bilirubin 0.3, AST 41 H, ALT 38, Alkaline Phosphatase 84, Total Protein 6.3, Albumin 3.0 L, Globulin 3.3 H, Albumin/Globulin Ratio 0.9 L, HCG, Quant [id number] H 01/01/24 18:15: Urine Color Yellow, Urine Appearance Clear, Urine pH 7.0, Ur Specific [place] <= 1.005, Urine Protein Negative, Urine Glucose (UA) Negative, Urine Ketones Negative, Urine Blood Negative, Urine Nitrate Negative, Urine Bilirubin Negative, Urine Urobilinogen 0.2, Ur Leukocyte Esterase 1+ A, Urine RBC 5-10, Urine WBC 10-20, Ur Squamous Epith Cells 20-50, Urine Bacteria 3+, Urine Yeast 1+ Orders (Tests/Meds): ED MEDICATIONS Discontinued Medications Generic Name Dose Route Start Last Admin Trade Name Freq PRN Reason Stop Dose Admin Acetaminophen 1,000 mg 01/01/24 17:55 01/01/24 18:07 Acetaminophen 500mg Tab PO 01/01/24 17:56 1,000 mg ONCE ONE Administration Lidocaine 1 each 01/01/24 17:55 01/01/24 18:07 Lidocaine 5% Transdermal Patch TP 01/01/24 17:56 1 each ONCE ONE Administration Magnesium Oxide 800 mg 01/01/24 18:33 01/01/24 18:48 Magnesium Oxide 400mg Tablet PO 01/01/24 18:34 800 mg ONCE ONE Administration Nitrofurantoin Macrocrystals 100 mg 01/01/24 19:19 01/01/24 19:29 Nitrofurantoin 100mg Capsule PO 01/01/24 19:20 100 mg ONCE ONE Administration Potassium Chloride 60 meq 01/01/24 19:22 01/01/24 19:29 Potassium Chloride 20meq Tab PO 01/01/24 19:23 60 meq ONCE ONE Administration ORDERS Category Date Time Status POCUS Point of Care (ER Only) Stat Exams 01/01/24 17:54 Completed CBC w/Auto Diff [Complete Blood Count Auto Diff] Stat Lab 01/01/24 17:45 Completed CMP [Comprehensive Metabolic Panel] Stat Lab 01/01/24 17:45 Completed HCG,Quantitative Stat Lab 01/01/24 17:45 Completed Magnesium Stat Lab 01/01/24 17:45 Completed UA [Urinalysis and Microscopic] Stat Lab 01/01/24 18:15 Completed Urine Culture Stat Micro 01/01/24 18:15 Received Procedures <Margarette Banks MD - Last Filed: 01/01/24 22:49> Miscellaneous Procedure Procedure Performed: Limited OB ultrasound Indication: Abdominal pain Identified structures: [-Uterus -Left adnexa -Right adnexa -Pouch of [place]esar] Findings: Uterus: Definitive IUP consistent with a FHR: 150 Right adnexa: No free fluid Left adnexa: No free fluid Cul de sac: Free fluid absent Impression: Single living IUP consistent with dates no other significant abnormalities Images were saved to permanent archive The study was technically adequate CPT Transabdominal: 70800-75 This study was performed by me, and I personally interpreted all images/videos. Based on my clinical judgement, these images were adequate and did not necessitate further imaging. Critical Care <SHEN Diop - Last Filed: 01/01/24 23:56> Critical Care Time Critical Care Time: No
[2024-01-01 18:06] LABS: Basophils % 0.6 % (0.1-2.0); Eosinophils # 0.2 K/mm3 (0.0-0.4); Eosinophils % 2.5 % (0.1-12.0); Hemoglobin 10.7 g/dL (12.2-16.2); Lymphocytes # 1.5 K/mm3 (0.7-4.5); Lymphocytes % 19.4 % (10-50); Mean Corpuscular HGB Conc 33.6 g/dL (31.8-35.4); Mean Corpuscular Hemoglobin 27.5 pg (27.0-31.2); Mean Corpuscular Volume 81.8 fl (81-99); Mean Platelet Volume 8.1 fl (7.4-10.4); Monocytes # 0.4 K/mm3 (0.1-1.0); Monocytes % 5.5 % (1.7-9.3); Neutrophils # 5.6 K/mm3 (1.8-7.8); Platelet Count 316 K/mm3 (142-424); Red Blood Count 3.91 M/mm3 (4.20-5.40); Red Cell Distribution Width 19.4 % (11.5-17.5); White Blood Count 7.7 K/mm3 (4.8-10.8)
[2024-01-01] MEDS: ACETAMINOPHEN 500MG TAB 1000 MG PO (18:07)
[2024-01-01] MEDS: LIDOCAINE 5% TRANSDERMAL PATCH 1 EACH TP (18:07)
[2024-01-01 18:10] LABS: Alanine Aminotransferase 38 U/L (12-78); Albumin/Globulin Ratio 0.9 (1.1-1.8); Alkaline Phosphatase 84 U/L (38-126); Anion Gap 8.2 mEq/L (5-15); Aspartate Amino Transferase 41 U/L (14-36); Bilirubin,Total 0.3 mg/dl (0.2-1.3); Blood Urea Nitrogen 5 mg/dl (7-17); Calcium 8.8 mg/dl (8.4-10.2); Carbon Dioxide 24 mmol/L (22.0-30.0); Chloride 106 mmol/L (98-107); Creatinine Clearance Estimated 242 mL/min (50-200); Estimated Glomerular Filt Rate 189 ml/min (>60); GFR (African American) 228 ML/MIN (>60); Globulin 3.3 g/dL (1.3-3.2); Glucose 130 mg/dl (74-100); Magnesium 1.5 mg/dl (1.6-2.3); Potassium 3.2 mmoL/L (3.5-5.1); Sodium 135 mmol/L (136-145); Total Protein,Serum 6.3 g/dl (6.3-8.2)
[2024-01-01 18:17] LABS: Microscopic, Urine URINE MICROSCOPIC (MICROSCOPIC)
[2024-01-01 18:22] LABS: Appearance,Urine CLEAR (Clear); Bilirubin,Urine Negative (Negative); Blood, Urine Negative (Negative); Color,Urine YELLOW (Yellow); Glucose,Urine (UA) Negative (Negative); Ketones,Urine Negative (Negative); Leukocyte Esterase,Urine 1+ (Negative); Nitrate,Urine Negative (Negative); Protein,Urine Negative (Negative); Specific Gravity, Urine <= 1.005 (1.005-1.030); Urobilinogen,Urine 0.2 EU/dl (0.2)
[2024-01-01] MEDS: MAGNESIUM OXIDE 400MG TABLET 800 MG PO (18:48)
[2024-01-01 18:54] LABS: Bacteria,Urine 3+ /lpf; Squamous Epithelial Cell,Urine 20-50 #/hpf (0-5); Yeast,Urine 1+ /lpf
[2024-01-01] MEDS: POTASSIUM CHLORIDE 20MEQ TAB 60 MEQ PO (19:29)
[2024-01-01] MEDS: NITROFURANTOIN 100MG CAPSULE 100 MG PO (19:29)
[2024-01-01 19:37] LABS: HCG,Quantitative 75519 mIU/ml (0-5.42)
[2024-01-01 19:54] VITALS: BP 118/73; PULSE 89; RESP 18; TEMP 37.1; O2SAT 97
== END 2024-01-01 20:01 | disposition home or self-care (01) ==
PROVIDERS: Physician Assistant; Emergency Provider Student in an Organized Health Care Education/Training Program; PCP Physician Assistant
DX: O23.42 Unspecified infection of urinary tract in pregnancy, second trimester (principal); B96.89 Other specified bacterial agents as the cause of diseases classified elsewhere; E87.6 Hypokalemia; M54.2 Cervicalgia; M54.59 Other low back pain; Z3A.22 22 weeks gestation of pregnancy
CPT/HCPCS: 80053; 81001; 83735; 84702; 85025; 87086; 99284

== ENCOUNTER 2024-01-08 11:54 | Emergency (ER) | payer BC, SELFPAY ==
[2024-01-08 12:03] VITALS: BP 129/80; PULSE 106; RESP 16; TEMP 36.9; O2SAT 98; BMI 30.5
--- NOTE | 2024-01-08 12:08 | PC.NURSE ---
call made to vascular lab for DVT scan
--- NOTE | 2024-01-08 12:09 | CA_ITS ---
FINAL REPORT TECHNIQUE: Multiple transverse and longitudinal images were performed of right the femoral-popliteal deep venous system with augmentation and compression maneuvers. CLINICAL HISTORY: RT CALF PAIN,C/O KNOTS LATERAL CALF,NKI FINDINGS: Right lower extremity duplex ultrasound demonstrates normal flow in the deep venous system. There is no abnormal echogenicity to suggest thrombus. There is normal compression and augmentation. IMPRESSION: No evidence of right DVT. Reviewed, Interpreted and Dictated by Blaise Parks III, MD Transcribed by Goldie Maynard Authenticated and [facility]
[2024-01-08 12:10] VITALS: RESP 13
[2024-01-08 13:21] VITALS: BP 128/76; PULSE 80; RESP 18; TEMP 37.1; O2SAT 98
--- NOTE | 2024-01-25 15:18 | HMH.EDGENADL ---
Discharge Plan Disposition Patient Disposition: Home, Self-Care Condition: Good Prescriptions Prescriptions: No Action brimonidine 0.2 % drops Eye-Both BID Patient Comments: INSTILL 1 DROP INTO EACH EYE TWICE DAILY DIRECTED fluorometholone 0.1 % drops,suspension Eye-Both ONCE Patient Comments: INSTILL 1 DROP INTO EACH EYE TWICE DAILY dorzolamide-timolol 22.3-6.8 mg/mL drops 1 drp OPHTHALMIC Classic 28 mg iron- 800 mcg tablet 1 tab PO DAILY nitrofurantoin monohyd/m-cryst [Macrobid] 100 mg capsule 100 mg PO BID Rx Instructions: must administer with a meal/food potassium chloride 20 mEq tablet extended release 40 meq PO DAILY Qty: 60 5RF ferrous fumarate 324 mg (106 mg iron) tablet 324 mg PO DAILY Qty: 30 8RF metoclopramide HCl [Reglan] 10 mg tablet 10 mg PO Q6H PRN (Reason: nausea and vomiting) Qty: 14 0RF nitrofurantoin monohyd/m-cryst 100 mg capsule 100 mg PO BID 5 Days Qty: 10 0RF Rx Instructions: must administer with a meal/food lidocaine 5 % adhesive patch,medicated 1 patch topical DAILY Qty: 30 0RF Rx Instructions: leave on most painful area for up to 12 hrs nitrofurantoin monohyd/m-cryst [Macrobid] 100 mg capsule 100 mg PO BID 7 Days Qty: 14 0RF Rx Instructions: must administer with a meal/food Referrals Follow up/Referrals: Brianda Wall PA [Primary Care Provider] - See instructions Activity Restrictions/Add. Instructions Additional Instructions/Restrictions: Take Tylenol 1 g every 6 hours as needed for pain. Use compression socks daily apply heat to the area that hurts. Follow-up with your OB for routine care. return to the emergency room for any new or worsening symptoms. Clinical Impressions Clinical Impression: Superficial thrombophlebitis Print Language Print Language: Frisian Discharge ED Provider: Marizol Morejon General Adult HPI General Chief complaint: Recheck/Abnormal Lab/Rx Stated complaint: bumps/bruising both legs Time Seen by Provider: 01/08/24 12:44 Mode of Arrival: Ambulatory Source of Information: Patient Limitations: No Limitations Description of Symptoms (Recalled from ER Triage Doc. by RN): pt presents to ED with c/o right calf knot and left calf bruising. pt is 17 weeks no complications as of yet. pt reports symptoms ongoing for the past few days . History of Present Illness HPI narrative: Pt is a 28 yo with PMH 17 weeks presents with RLE swelling for the last few days, mild discomfort, no erythema, no trauma. Still able to ambulate. Denies CP, SOA, fever vaginal dc leakage or bleeding. Related Data Home Medications ?Medication ?Instructions ?Recorded ?Confirmed dorzolamide 22.3 mg-timolol 6.8 1 drp ophthalmic (eye) 06/15/21 01/02/24 mg/mL eye drops brimonidine 0.2 % eye drops drp Eye-Both BID 11/09/23 01/02/24 fluorometholone 0.1 % eye drp Eye-Both ONCE 11/09/23 01/02/24 drops,suspension vits no.126-ferrous fum 1 tab PO DAILY 12/06/23 01/02/24 28 mg iron-folic acid 800 mcg tablet (Classic ) nitrofurantoin 100 mg PO BID 01/02/24 01/02/24 monohydrate/macrocrystals 100 mg capsule (Macrobid) Previous Rx's ?Medication ?Instructions ?Recorded metoclopramide HCl 10 mg tablet 10 mg PO Q6H PRN nausea and 12/08/23 (Reglan) vomiting #14 tabs lidocaine 5 % topical patch 1 patch topical DAILY #30 ea 01/01/24 nitrofurantoin 100 mg PO BID 5 days #10 caps 01/01/24 monohydrate/macrocrystals 100 mg capsule ferrous fumarate 324 mg (106 mg 324 mg PO DAILY #30 tabs 01/02/24 iron) tablet potassium chloride 20 mEq 40 meq (2 x 20 mEq) PO DAILY #60 01/02/24 tablet,extended release tabs nitrofurantoin 100 mg PO BID 7 days #14 caps 01/10/24 monohydrate/macrocrystals 100 mg capsule (Macrobid) Allergies Allergy/AdvReac Type Severity Reaction Status Date / Time No Known Drug Allergies Allergy Unknown -- Verified 01/02/24 13:15 [facility] Disclaimer: The information contained in this section may have been updated after the patient was seen, as this information can be updated by other users. Medical History Obesity Cataract Surgical History Hx of wisdom tooth extraction Hx of cataract surgery Family History Other No significant family history Social History Smoking Status: Never smoker second hand exposure: No alcohol intake: current alcohol intake frequency: a few times a week current occupational status: employed Travel in the last 8 weeks: None ROS Obtained: Yes All systems reviewed & no additional complaints except as documented Physical Exam General General appearance: alert and in no apparent distress Head Head exam: atraumatic and normocephalic Eye Eye exam: Present normal appearance ENT ENT exam: Present normal exam and normal oropharynx Neck Neck exam: Present normal inspection and full ROM Chest Chest inspection: Present normal inspection and symmetric chest wall rise Respiratory Respiratory exam: Present normal lung sounds bilaterally; Absent respiratory distress Cardiovascular Cardiovascular exam: Present regular rate and normal rhythm Abdominal Exam Abdominal exam: Present soft; Absent distention or tenderness Extremities Exam Extremities exam: Present normal inspection and full ROM; Absent tenderness, edema or calf tenderness Neurological Exam Neurological exam: Present alert Psychiatric Psychiatric exam: Present normal affect and normal mood Skin Skin exam: Present warm and dry; Absent erythema Medical Decision Making Chinedu Inquiry Pt receiving controlled substance: No Vital Signs: 01/08/24 12:03 01/08/24 12:10 01/08/24 12:10 Temperature 98.4 F Temperature Source Oral Pulse Rate Pulse Rate [Left Radial] 106 H Respiratory Rate 16 13 13 Blood Pressure Blood Pressure [Right Arm] 129/80 Blood Pressure Mean [Right Arm] 96 Blood Pressure Source Blood Pressure Position 02 Sat by Pulse Oximetry 98 Oxygen Delivery Method Room Air Room Air Room Air 01/08/24 13:21 Temperature 98.7 F Temperature Source Oral Pulse Rate 80 Pulse Rate [Left Radial] Respiratory Rate 18 Blood Pressure 128/76 Blood Pressure [Right Arm] Blood Pressure Mean [Right Arm] Blood Pressure Source Automatic Cuff Blood Pressure Position Supine 02 Sat by Pulse Oximetry Oxygen Delivery Method Room Air Orders (Tests/Meds): ORDERS Category Date Time Status CA venous doppler LE RT Stat Y 01/08/24 12:09 Completed Medical Decision Narrative: Pt is a 28 yo with PMH signifcant for 17 week presenting with RLE swelling. Upon presentation pt HDS, saturating appropriately on RA and in no acute distress. Exam very reassuring with no significant edema, erythema or tenderness. Ddx include cellulitis, superficial thrombophlebitis, soft tissue innjury versus DVT. DVT US with DVT. Pt reassured that this was likely swelling and venous stasis in the setting of her . Recommended compression stockings and follow up with OB. PT amendable to dc with strict return precautions. Critical Care Critical Care Time Critical Care Time: No
== END 2024-01-08 13:22 | disposition home or self-care (01) ==
PROVIDERS: Emergency Provider Student in an Organized Health Care Education/Training Program; PCP Physician Assistant
DX: O26.892 Other specified pregnancy related conditions, second trimester (principal); I80.03 Phlebitis and thrombophlebitis of superficial vessels of lower extremities, bilateral; R22.43 Localized swelling, mass and lump, lower limb, bilateral; Z3A.17 17 weeks gestation of pregnancy
CPT/HCPCS: 93971; 99284

== ENCOUNTER 2024-01-10 12:57 | Emergency (ER) | payer BC, SELFPAY ==
[2024-01-10 12:58] VITALS: BP 141/80; PULSE 103; RESP 16; TEMP 36.7; O2SAT 97; BMI 30.5
[2024-01-10 13:30] VITALS: BP 134/76; PULSE 97; RESP 18; O2SAT 98
--- NOTE | 2024-01-10 13:53 | HMH.EDGENADL ---
Discharge Plan Disposition Patient Disposition: Home, Self-Care Condition: Good Prescriptions Prescriptions: New nitrofurantoin monohyd/m-cryst [Macrobid] 100 mg capsule 100 mg PO BID 7 Days Qty: 14 0RF Rx Instructions: must administer with a meal/food No Action brimonidine 0.2 % drops Eye-Both BID Patient Comments: INSTILL 1 DROP INTO EACH EYE TWICE DAILY DIRECTED fluorometholone 0.1 % drops,suspension Eye-Both ONCE Patient Comments: INSTILL 1 DROP INTO EACH EYE TWICE DAILY dorzolamide-timolol 22.3-6.8 mg/mL drops 1 drp OPHTHALMIC Classic 28 mg iron- 800 mcg tablet 1 tab PO DAILY nitrofurantoin monohyd/m-cryst [Macrobid] 100 mg capsule 100 mg PO BID Rx Instructions: must administer with a meal/food potassium chloride 20 mEq tablet extended release 40 meq PO DAILY Qty: 60 5RF ferrous fumarate 324 mg (106 mg iron) tablet 324 mg PO DAILY Qty: 30 8RF metoclopramide HCl [Reglan] 10 mg tablet 10 mg PO Q6H PRN (Reason: nausea and vomiting) Qty: 14 0RF nitrofurantoin monohyd/m-cryst 100 mg capsule 100 mg PO BID 5 Days Qty: 10 0RF Rx Instructions: must administer with a meal/food lidocaine 5 % adhesive patch,medicated 1 patch topical DAILY Qty: 30 0RF Rx Instructions: leave on most painful area for up to 12 hrs Referrals Follow up/Referrals: Brianda Wall PA [Primary Care Provider] - See instructions Activity Restrictions/Add. Instructions Additional Instructions/Restrictions: You were evaluated in the ER. You are appropriate for discharge at this time. Continue taking home medications as prescribed. Take the prescribed nitrofurantoin as directed, do not skip doses, do not stop taking it early. Follow-up with OB. Return to the ER with new, worsening, or otherwise concerning symptoms. Clinical Impressions Clinical Impression: Right upper quadrant abdominal pain Instructions Patient Instructions: DI for Acute Abdominal Pain Print Language Print Language: Greenlandic Discharge ED Provider: Brianna Valente Adult HPI General Chief complaint: Abdominal Pain Stated complaint: 17 weeks antepartum, upper abd pain, Time Seen by Provider: 01/10/24 13:24 Mode of Arrival: Ambulatory Source of Information: Patient Limitations: No Limitations Description of Symptoms (Recalled from ER Triage Doc. by RN): Patient reports waking up and not being able to move . States that she is and woke up with sore neck, back pain and upper stomach pain. Denies any discharge. History of Present Illness HPI narrative: 28-year-old female G3, P2, 17 weeks presents to the ER for complaints of right upper quadrant abdominal pain. Patient does also report symptoms of sore neck and back but states this has been a baseline problem for her throughout and she is on a magnesium supplement for it. She has been evaluated previously for the neck and back pain with reassuring workups. Patient reports her new complaint today is right upper quadrant abdominal pain. She reports she is not having nausea or vomiting. No diarrhea. She does report that she has her gallbladder. No fevers, no other associated symptoms. Related Data Home Medications ?Medication ?Instructions ?Recorded ?Confirmed dorzolamide 22.3 mg-timolol 6.8 1 drp ophthalmic (eye) 06/15/21 01/02/24 mg/mL eye drops brimonidine 0.2 % eye drops drp Eye-Both BID 11/09/23 01/02/24 fluorometholone 0.1 % eye drp Eye-Both ONCE 11/09/23 01/02/24 drops,suspension vits no.126-ferrous fum 1 tab PO DAILY 12/06/23 01/02/24 28 mg iron-folic acid 800 mcg tablet (Classic ) nitrofurantoin 100 mg PO BID 01/02/24 01/02/24 monohydrate/macrocrystals 100 mg capsule (Macrobid) Previous Rx's ?Medication ?Instructions ?Recorded metoclopramide HCl 10 mg tablet 10 mg PO Q6H PRN nausea and 12/08/23 (Reglan) vomiting #14 tabs lidocaine 5 % topical patch 1 patch topical DAILY #30 ea 01/01/24 nitrofurantoin 100 mg PO BID 5 days #10 caps 01/01/24 monohydrate/macrocrystals 100 mg capsule ferrous fumarate 324 mg (106 mg 324 mg PO DAILY #30 tabs 01/02/24 iron) tablet potassium chloride 20 mEq 40 meq (2 x 20 mEq) PO DAILY #60 01/02/24 tablet,extended release tabs nitrofurantoin 100 mg PO BID 7 days #14 caps 01/10/24 monohydrate/macrocrystals 100 mg capsule (Macrobid) Allergies Allergy/AdvReac Type Severity Reaction Status Date / Time No Known Drug Allergies Allergy Unknown -- Verified 01/02/24 13:15 [facility] Disclaimer: The information contained in this section may have been updated after the patient was seen, as this information can be updated by other users. Medical History Obesity Cataract Surgical History Hx of wisdom tooth extraction Hx of cataract surgery Family History Other No significant family history Social History Smoking Status: Never smoker second hand exposure: No alcohol intake: current alcohol intake frequency: a few times a week current occupational status: employed Travel in the last 8 weeks: None ROS Obtained: Yes All systems reviewed & no additional complaints except as documented Positive ROS per HPI Physical Exam General General appearance: alert and in no apparent distress Head Head exam: atraumatic and normocephalic Eye Eye exam: Present PERRL and EOMI ENT ENT exam: Present mucous membranes moist Neck Neck exam: Present normal inspection and full ROM; Absent tenderness Chest Chest inspection: Present symmetric chest wall rise Respiratory Respiratory exam: Present normal lung sounds bilaterally; Absent respiratory distress, wheezes or stridor Cardiovascular Cardiovascular exam: Present regular rate and normal rhythm Abdominal Exam Abdominal exam: Present soft and tenderness (Right upper quadrant, epigastric); Absent distention, guarding, rebound or rigidity Extremities Exam Extremities exam: Present full ROM Neurological Exam Neurological exam: Present alert and oriented X3; Absent motor sensory deficit Psychiatric Psychiatric exam: Present normal affect and normal mood Skin Skin exam: Present warm and dry Medical Decision Making Medical Records Medical records reviewed: Yes I reviewed the patient's medical records. MR Comment: Right upper quadrant ultrasound performed on 12/06 was reviewed and was negative for biliary pathology. Chinedu Inquiry Pt receiving controlled substance: No Vital Signs: 01/10/24 12:58 01/10/24 13:30 01/10/24 14:00 Temperature 98.0 F Temperature Source Oral Pulse Rate 97 H 96 H Pulse Rate [Radial] 103 H Respiratory Rate 16 18 18 Blood Pressure 134/76 119/71 Blood Pressure [Right Arm] 141/80 H Blood Pressure Mean 93 87 Blood Pressure Mean [Right Arm] 100 Blood Pressure Source [Right Arm] Automatic Cuff Blood Pressure Position [Right Arm] Sitting 02 Sat by Pulse Oximetry 97 98 97 Oxygen Delivery Method Room Air 01/10/24 14:30 Temperature Temperature Source Pulse Rate 94 H Pulse Rate [Radial] Respiratory Rate Blood Pressure 125/68 Blood Pressure [Right Arm] Blood Pressure Mean Blood Pressure Mean [Right Arm] Blood Pressure Source [Right Arm] Blood Pressure Position [Right Arm] 02 Sat by Pulse Oximetry 97 Oxygen Delivery Method Room Air Lab Data Lab Results 01/10/24 13:08: Urine Color Yellow, Urine Appearance Clear, Urine pH 7.5, Ur Specific [place] 1.020, Urine Protein Negative, Urine Glucose (UA) Negative, Urine Ketones Negative, Urine Blood Negative, Urine Nitrate Negative, Urine Bilirubin Negative, Urine Urobilinogen 0.2, Ur Leukocyte Esterase Negative, Urine RBC None, Urine WBC Occasional, Ur Squamous Epith Cells 10-20, Amorphous Sediment 2+, Urine Bacteria Trace 01/10/24 13:15: WBC 8.1, RBC 4.28, Hgb 11.7 L, Hct 37.8, MCV 88.4, MCH 27.4, MCHC 31.1 L, RDW 19.7 H, Plt Count 308, MPV 8.0, Neut % (Auto) 73.2, Lymph % (Auto) 17.5, [place] % (Auto) 4.9, Eos % (Auto) 3.9, Baso % (Auto) 0.5, Neut # (Auto) 6.0, Lymph # (Auto) 1.4, [place] # (Auto) 0.4, Eos # (Auto) 0.3, Baso # (Auto) 0.0, PT 10.3, INR 0.91, Sodium 134 L, Potassium 3.8, Chloride 109 H, Carbon Dioxide 23, Anion Gap 5.8, BUN 6 L, Creatinine 0.50 L, Estimated Creat Clear 199, Estimated GFR 146, Est GFR ( Amer) 177, Glucose 109 H, Calcium 8.2 L, Magnesium 1.7, Total Bilirubin 0.4, AST 52 H, ALT 49, Alkaline Phosphatase 94, Total Protein 6.6, Albumin 3.3 L, Globulin 3.3 H, Albumin/Globulin Ratio 1.0 L, Lipase 37 01/10/24 13:51: Lactate 1.3 01/10/24 13:15 01/10/24 13:15 Orders (Tests/Meds): ORDERS Category Date Time Status POCUS Point of Care (ER Only) Stat Exams 01/10/24 14:11 Completed US Right Upper Quad [US abdomen limited] Stat Exams 01/10/24 13:49 Ordered CBC w/Auto Diff [Complete Blood Count Auto Diff] Stat Lab 01/10/24 13:15 Completed CMP [Comprehensive Metabolic Panel] Stat Lab 01/10/24 13:15 Completed Lactic Acid Stat Lab 01/10/24 13:51 Completed Lipase Stat Lab 01/10/24 13:15 Completed Magnesium Stat Lab 01/10/24 13:15 Completed PT INR [Prothrombin Time INR] Stat Lab 01/10/24 13:15 Completed Urinalysis and Microscopic Stat Lab 01/10/24 13:08 Completed Medical Decision Narrative: In summary, this 28-year-old female presents to the emergency department today with right upper quadrant abdominal pain in the setting of 17 weeks . On initial evaluation patient is hemodynamically stable, afebrile, patient has mild right upper quadrant tenderness without rebound or guarding, nonacute abdomen, remainder of exam benign. Differential diagnosis includes but is not limited to cholestasis, cholelithiasis, HELLP, transaminitis, pancreatitis, electrolyte abnormality, dehydration, asymptomatic bacteriuria. In the setting of normal right upper quadrant ultrasound 1 month ago I have lower suspicion for biliary pathology but it is still on my differential. Based on these concerns, I ordered serum labs, urinalysis. Labs personally reviewed demonstrate no leukocytosis, anemia with hemoglobin 11.7, normal platelets at 308, PT/INR normal, CMP with trace hyponatremia and hypochloremia, BUN and creatinine unremarkable, AST slightly elevated at 52 however this is only mildly changed from previous and the remainder of LFTs are normal. Albumin improved from prior, UA with squamous cells and trace bacteria, few leukocytes or nitrates, no findings of UTI. Magnesium normal. I discussed patient's urine results with OB, Dr. Appiah does recommend treatment at this time, Macrobid 100 mg twice daily for 7 days. They will follow-up with the patient outpatient. [id number] ultrasound personally performed and interpreted demonstrate no findings concerning for cholelithiasis or cholecystitis at this time. See procedure note for details. Patient is tolerating oral intake in the ER. Patient is appropriate for discharge at this time. Patient was given instructions on symptomatic management, follow up instructions, and return precautions for the emergency department. Patient indicated understanding and was discharged in stable condition. Procedures Miscellaneous Procedure Procedure Performed: Limited RUQ ultrasound Indication: Abdominal pain Identified structures: Gallbladder, gallbladder wall, liver, bile duct was not able to be visualized secondary to bowel gas Findings: Sonographic Sherman sign: Absent Gallstones: Absent Sludge: Absent Pericholecystic fluid: Absent Maximal GB wall thickness (mm): Normal, 1.6 mm Common bile duct width (mm): Unable to measure secondary to bowel gas Impression: Unremarkable right upper quadrant ultrasound Images were saved to permanent archive The study was technically adequate CPT 09040-30 This study was performed by me, and I personally interpreted all images/videos. Based on my clinical judgement, these images were adequate and did not necessitate further imaging. Critical Care Critical Care Time Critical Care Time: No
[2024-01-10 13:59] LABS: Microscopic, Urine URINE MICROSCOPIC (MICROSCOPIC)
[2024-01-10 13:59] LABS: Albumin Level 3.3 g/dl (3.5-5.0); Chloride 109 mmol/L (98-107); Potassium 3.8 mmoL/L (3.5-5.1); Sodium 134 mmol/L (136-145)
[2024-01-10 14:00] VITALS: BP 119/71; PULSE 96; RESP 18; O2SAT 97
[2024-01-10 14:01] LABS: Basophils % 0.5 % (0.1-2.0); Eosinophils # 0.3 K/mm3 (0.0-0.4); Eosinophils % 3.9 % (0.1-12.0); Hematocrit 37.8 % (37.0-47.0); Hemoglobin 11.7 g/dL (12.2-16.2); Lymphocytes # 1.4 K/mm3 (0.7-4.5); Lymphocytes % 17.5 % (10-50); Mean Corpuscular HGB Conc 31.1 g/dL (31.8-35.4); Mean Corpuscular Hemoglobin 27.4 pg (27.0-31.2); Mean Corpuscular Volume 88.4 fl (81-99); Monocytes # 0.4 K/mm3 (0.1-1.0); Monocytes % 4.9 % (1.7-9.3); Neutrophils % 73.2 % (37.0-80.0); Platelet Count 308 K/mm3 (142-424); Red Blood Count 4.28 M/mm3 (4.20-5.40); Red Cell Distribution Width 19.7 % (11.5-17.5); White Blood Count 8.1 K/mm3 (4.8-10.8)
[2024-01-10 14:02] LABS: Alanine Aminotransferase 49 U/L (12-78); Alkaline Phosphatase 94 U/L (38-126); Anion Gap 5.8 mEq/L (5-15); Aspartate Amino Transferase 52 U/L (14-36); Bilirubin,Total 0.4 mg/dl (0.2-1.3); Blood Urea Nitrogen 6 mg/dl (7-17); Carbon Dioxide 23 mmol/L (22.0-30.0); Creatinine Clearance Estimated 199 mL/min (50-200); Estimated Glomerular Filt Rate 146 ml/min (>60); GFR (African American) 177 ML/MIN (>60); Globulin 3.3 g/dL (1.3-3.2); Glucose 109 mg/dl (74-100); Lipase 37 U/L (23-300); Total Protein,Serum 6.6 g/dl (6.3-8.2)
[2024-01-10 14:02] LABS: Appearance,Urine CLEAR (Clear); Bilirubin,Urine Negative (Negative); Blood, Urine Negative (Negative); Color,Urine YELLOW (Yellow); Glucose,Urine (UA) Negative (Negative); Ketones,Urine Negative (Negative); Leukocyte Esterase,Urine Negative (Negative); Nitrate,Urine Negative (Negative); PH,Urine 7.5 (5.0-8.5); Protein,Urine Negative (Negative); Urobilinogen,Urine 0.2 EU/dl (0.2)
[2024-01-10 14:03] LABS: Calcium 8.2 mg/dl (8.4-10.2); INR 0.91 (0.9-1.1); Prothrombin Time 10.3 seconds (10.1-12.5)
[2024-01-10 14:10] LABS: Lactic Acid 1.3 mmol/L (0.7-2.1)
[2024-01-10 14:11] LABS: WBC,Urine Occasional #/hpf (0-3)
[2024-01-10 14:12] LABS: Amorphous Sediment,Urine 2+ /lpf; Bacteria,Urine Trace /lpf
--- NOTE | 2024-01-10 14:21 | PC.NURSE ---
Called [facility]BG[facility]- Dr. Yeh for consult. Dr. Valente s/w Dr. Yeh
[2024-01-10 14:27] LABS: Magnesium 1.7 mg/dl (1.6-2.3)
[2024-01-10 14:30] VITALS: BP 125/68; PULSE 94; O2SAT 97
[2024-01-10 15:06] VITALS: BP 119/72; PULSE 90; RESP 20; TEMP 36.9; O2SAT 97
== END 2024-01-10 15:08 | disposition home or self-care (01) ==
PROVIDERS: Emergency Provider Emergency Medicine; PCP Physician Assistant
DX: O26.892 Other specified pregnancy related conditions, second trimester (principal); R10.11 Right upper quadrant pain; Z3A.17 17 weeks gestation of pregnancy
CPT/HCPCS: 80053; 81001; 83605; 83690; 83735; 85025; 85610; 99284

== ENCOUNTER 2024-01-16 11:48 | Emergency (ER) | payer BC, SELFPAY ==
[2024-01-16 12:05] VITALS: BP 121/80; PULSE 91; RESP 20; TEMP 36.6; O2SAT 99; BMI 30.5
--- NOTE | 2024-01-16 12:28 | ED_ITS ---
Discharge Plan Disposition Patient Disposition: Home, Self-Care Prescriptions Prescriptions: No Action brimonidine 0.2 % drops Eye-Both BID Patient Comments: INSTILL 1 DROP INTO EACH EYE TWICE DAILY DIRECTED fluorometholone 0.1 % drops,suspension Eye-Both ONCE Patient Comments: INSTILL 1 DROP INTO EACH EYE TWICE DAILY dorzolamide-timolol 22.3-6.8 mg/mL drops 1 drp OPHTHALMIC Classic 28 mg iron- 800 mcg tablet 1 tab PO DAILY nitrofurantoin monohyd/m-cryst [Macrobid] 100 mg capsule 100 mg PO BID Rx Instructions: must administer with a meal/food potassium chloride 20 mEq tablet extended release 40 meq PO DAILY Qty: 60 5RF ferrous fumarate 324 mg (106 mg iron) tablet 324 mg PO DAILY Qty: 30 8RF metoclopramide HCl [Reglan] 10 mg tablet 10 mg PO Q6H PRN (Reason: nausea and vomiting) Qty: 14 0RF nitrofurantoin monohyd/m-cryst 100 mg capsule 100 mg PO BID 5 Days Qty: 10 0RF Rx Instructions: must administer with a meal/food lidocaine 5 % adhesive patch,medicated 1 patch topical DAILY Qty: 30 0RF Rx Instructions: leave on most painful area for up to 12 hrs nitrofurantoin monohyd/m-cryst [Macrobid] 100 mg capsule 100 mg PO BID 7 Days Qty: 14 0RF Rx Instructions: must administer with a meal/food Referrals Follow up/Referrals: Brianda Wall PA [Primary Care Provider] - See instructions Activity Restrictions/Add. Instructions Additional Instructions/Restrictions: Up with your PROPERTY MANAGEMENT SPECIALIST regarding this visit to the emergency department. Continue taking . If you have any other concerning symptoms, return to your family doctor or the ED for further evaluation. Clinical Impressions Clinical Impression: Dark red stool Print Language Print Language: Turkish Discharge ED Provider: Wyatt Fagan General Adult HPI General Chief complaint: Recheck/Abnormal Lab/Rx Stated complaint: black/tarry stool 18wks Time Seen by Provider: 01/16/24 11:55 Mode of Arrival: Ambulatory Source of Information: Patient Limitations: No Limitations Description of Symptoms (Recalled from ER Triage Doc. by RN): pt to ed c/o dark stools. pt reports to taking iron supplements. pt reports to being 29w . History of Present Illness HPI narrative: Please note that above description of symptoms, in this electronic medical record under categorization of recalled from ER triage doctor by RN are reflective of an initial nursing assessment, however, is not reflective of my full history and physical exam that was personally taken and clarified. Consequentially, this preceding description of symptoms, which may include the patient's categorized chief complaint in the EMR, do not reflect my personal clinical impression, and the ultimate description of history of present illness and patient stated complaints should be deferred to this section of the note. Unless stated otherwise or congruent with this section of the note, additional signs, symptoms, or incongruence should be interpreted as inaccurate with my clinical impression. Related Data Home Medications ?Medication ?Instructions ?Recorded ?Confirmed dorzolamide 22.3 mg-timolol 6.8 1 drp ophthalmic (eye) 06/15/21 01/02/24 mg/mL eye drops brimonidine 0.2 % eye drops drp Eye-Both BID 11/09/23 01/02/24 fluorometholone 0.1 % eye drp Eye-Both ONCE 11/09/23 01/02/24 drops,suspension vits no.126-ferrous fum 1 tab PO DAILY 12/06/23 01/02/24 28 mg iron-folic acid 800 mcg tablet (Classic ) nitrofurantoin 100 mg PO BID 01/02/24 01/02/24 monohydrate/macrocrystals 100 mg capsule (Macrobid) Previous Rx's ?Medication ?Instructions ?Recorded metoclopramide HCl 10 mg tablet 10 mg PO Q6H PRN nausea and 12/08/23 (Reglan) vomiting #14 tabs lidocaine 5 % topical patch 1 patch topical DAILY #30 ea 01/01/24 nitrofurantoin 100 mg PO BID 5 days #10 caps 01/01/24 monohydrate/macrocrystals 100 mg capsule ferrous fumarate 324 mg (106 mg 324 mg PO DAILY #30 tabs 01/02/24 iron) tablet potassium chloride 20 mEq 40 meq (2 x 20 mEq) PO DAILY #60 01/02/24 tablet,extended release tabs nitrofurantoin 100 mg PO BID 7 days #14 caps 01/10/24 monohydrate/macrocrystals 100 mg capsule (Macrobid) Allergies Allergy/AdvReac Type Severity Reaction Status Date / Time No Known Drug Allergies Allergy Unknown -- Verified 01/02/24 13:15 [facility] Disclaimer: The information contained in this section may have been updated after the patient was seen, as this information can be updated by other users. Medical History Obesity Cataract Surgical History Hx of wisdom tooth extraction Hx of cataract surgery Family History Other No significant family history Social History Smoking Status: Never smoker second hand exposure: No alcohol intake: current alcohol intake frequency: a few times a week current occupational status: employed Travel in the last 8 weeks: None ROS Obtained: Yes All systems reviewed & no additional complaints except as documented Physical Exam General General appearance: alert Head Head exam: atraumatic and normocephalic Eye Eye exam: Present normal appearance, PERRL and EOMI Neck Neck exam: Present normal inspection, full ROM and trachea midline Respiratory Respiratory exam: Absent respiratory distress, wheezes, stridor, accessory muscle use or prolonged expiratory phase Cardiovascular Cardiovascular exam: Present other (Pulses equal symmetric in upper and lower extremities) Abdominal Exam Abdominal exam: Present soft; Absent distention, tenderness or pulsatile mass Extremities Exam Extremities exam: Absent edema Neurological Exam Neurological exam: Present alert, oriented X3 and CN II-XII intact; Absent motor sensory deficit Skin Skin exam: Present warm and dry; Absent diaphoresis or erythema Medical Decision Making Medical Records Medical records reviewed: Yes I reviewed the patient's medical records. Chinedu Inquiry Pt receiving controlled substance: No Chinedu was queried for this patient: No Vital Signs: 01/16/24 12:05 Temperature 97.9 F Temperature Source Oral Pulse Rate [Left Radial] 91 H Respiratory Rate 20 Blood Pressure [Right Arm] 121/80 Blood Pressure Mean [Right Arm] 93 02 Sat by Pulse Oximetry 99 Oxygen Delivery Method Room Air Lab Data Lab Results 01/16/24 12:21: Urine Color Yellow, Urine Appearance Sl cloudy, Urine pH 6.5, Ur Specific [place] 1.010, Urine Protein Negative, Urine Glucose (UA) Negative, Urine Ketones Negative, Urine Blood Negative, Urine Nitrate Negative, Urine Bilirubin Negative, Urine Urobilinogen 0.2, Ur Leukocyte Esterase Negative, Urine RBC None, Urine WBC 5-10, Ur Squamous Epith Cells 20-50, Urine Bacteria Trace 01/16/24 12:22: WBC 8.4, RBC 4.01 L, Hgb 11.4 L, Hct 35.5 L, MCV 88.6, MCH 28.5, MCHC 32.2, RDW 19.6 H, Plt Count 329, MPV 7.9, Neut % (Auto) 68.8, Lymph % (Auto) 21.7, [place] % (Auto) 6.9, Eos % (Auto) 2.2, Baso % (Auto) 0.5, Neut # (Auto) 5.8, Lymph # (Auto) 1.8, [place] # (Auto) 0.6, Eos # (Auto) 0.2, Baso # (Auto) 0.0 01/16/24 12:22 Orders (Tests/Meds): ORDERS Category Date Time Status CBC w/Auto Diff [Complete Blood Count Auto Diff] Stat Lab 01/16/24 12:22 Completed UA [Urinalysis and Microscopic] Stat Lab 01/16/24 12:21 Completed Medical Decision Narrative: 28-year-old female very well-known to our emergency department presenting with dark stools. Patient states that she called her PROPERTY MANAGEMENT SPECIALIST because she was having dark stools for the last 2 days. Allegedly, PROPERTY MANAGEMENT SPECIALIST told her to come to the emergency department because that is where they will figure things out. Patient denies chest pain, shortness of breath, lightheadedness, vaginal discharge or bleeding, gushes of fluid, decreased movements, urinary symptoms, or any other concerns. History was obtained with patient. On arrival, she is hemodynamically stable, afebrile, nontachycardic, normotensive. In no acute distress. Not currently having symptoms. Differential includes medication side effect, GI bleed, among others. Patient does state that she is on a vitamin that has iron as well as extra iron supplement, however she stopped taking the iron supplement 2 days prior to this due to concern for dark stools. Workup with CBC as well as UA was obtained. On independent interpretation contaminated urine samples with squamous cells and bacteria. Stable hemoglobin right around 11. Because patient at baseline without signs or symptoms of clinical decompensation, deemed appropriate for discharge. Results were relayed to patient who voiced understanding and were agreeable to outpatient management and follow up. I discussed my clinical impression with patient and answered all questions. At this time, the evidence for any other entities in the differential is insufficient to warrant any further testing or ED observation. This was explained as well. Advisory was given that persistent or worsening symptoms require further evaluation. I confirmed the understanding of this discussion. I feel this is most likely related to her vitamin and iron supplementation. Powder Expert disclaimer Much of this encounter note is an electronic dumpcart driver spoken language to printed text. Electronic dumpcart driver of the spoken language may permit errors. Although I have reviewed the note, some errors may still exist. Critical Care Critical Care Time Critical Care Time: No
[2024-01-16 12:32] LABS: Microscopic, Urine URINE MICROSCOPIC (MICROSCOPIC)
[2024-01-16 12:34] LABS: Appearance,Urine SL CLOUDY (Clear); Bilirubin,Urine Negative (Negative); Blood, Urine Negative (Negative); Color,Urine YELLOW (Yellow); Glucose,Urine (UA) Negative (Negative); Ketones,Urine Negative (Negative); Leukocyte Esterase,Urine Negative (Negative); Nitrate,Urine Negative (Negative); PH,Urine 6.5 (5.0-8.5); Protein,Urine Negative (Negative); Urobilinogen,Urine 0.2 EU/dl (0.2)
[2024-01-16 12:53] LABS: Bacteria,Urine Trace /lpf; Squamous Epithelial Cell,Urine 20-50 #/hpf (0-5)
[2024-01-16 12:53] LABS: Basophils % 0.5 % (0.1-2.0); Eosinophils # 0.2 K/mm3 (0.0-0.4); Eosinophils % 2.2 % (0.1-12.0); Hematocrit 35.5 % (37.0-47.0); Hemoglobin 11.4 g/dL (12.2-16.2); Lymphocytes # 1.8 K/mm3 (0.7-4.5); Lymphocytes % 21.7 % (10-50); Mean Corpuscular HGB Conc 32.2 g/dL (31.8-35.4); Mean Corpuscular Hemoglobin 28.5 pg (27.0-31.2); Mean Corpuscular Volume 88.6 fl (81-99); Mean Platelet Volume 7.9 fl (7.4-10.4); Monocytes # 0.6 K/mm3 (0.1-1.0); Monocytes % 6.9 % (1.7-9.3); Neutrophils # 5.8 K/mm3 (1.8-7.8); Neutrophils % 68.8 % (37.0-80.0); Platelet Count 329 K/mm3 (142-424); Red Blood Count 4.01 M/mm3 (4.20-5.40); Red Cell Distribution Width 19.6 % (11.5-17.5); White Blood Count 8.4 K/mm3 (4.8-10.8)
[2024-01-16 13:21] VITALS: BP 91/53; PULSE 69; RESP 16; TEMP 36.7; O2SAT 99
[2024-01-16 13:23] VITALS: BP 91/53; PULSE 66; RESP 18; TEMP 36.7; O2SAT 99
== END 2024-01-16 13:23 | disposition home or self-care (01) ==
PROVIDERS: Emergency Provider Emergency Medicine; PCP Physician Assistant
DX: O26.892 Other specified pregnancy related conditions, second trimester (principal); R19.5 Other fecal abnormalities; Z3A.18 18 weeks gestation of pregnancy
CPT/HCPCS: 81001; 85025; 99283

== ENCOUNTER 2024-01-30 12:39 | Outpatient (CLI) | payer BC, SELFPAY ==
--- NOTE | 2024-01-30 12:43 | US_ITS ---
PROCEDURE: US OB /MATERNAL DETAIL CLINICAL INDICATION: 20 week anatomy scan COMPARISON: US US OB <= 14 WEEKS FETUS from 11/09/2023 FINDINGS: Transabdominal sonographic images of the pelvis were obtained. From her established due date she is 20 weeks 3 days. Single viable intrauterine gestation. Breech position. Placenta: Anteriorplacenta grade 1. There is an area anterior to the placenta that appears thickened. Could represent a contraction. There is vascular flow here. There is an average amount of fluid. The cervix appears satisfactory. Closed and measuring 3.3 cm in length. Complete survey performed and was unremarkable on the submitted images as in PACS. No discrete anomalies identified on survey imaging by technologist. Active fetus. Three-vessel cord with satisfactory umbilical cord insertion. 4- chamber heart noted. [place], aortic arch, LVOT, RVOT, three-vessel view appear normal. Survey of brain & ventricles Unremarkable. Cerebellum, thalamus, choroid plexus, cisterna magna appear normal. Face and neck survey unremarkable. Profile, nasion, lips and nose appeared normal. Diaphragm and chest views unremarkable. Abdomen: Both kidneys noted and unremarkable. Stomach and bladder noted and satisfactory. Spine: Survey of the spine satisfactory with no anomalies identified nor imaged. Cervical, thoracic, lower spine appear normal. Both arms and legs noted. Amniotic Fluid: Adequate. MVP 3.62 cm Measurements: Average ultrasound age 19weeks 4days. Estimated due date by ultrasound age 0106/21/2024. Estimated weight 301g BPD = 19weeks 1day HC = 19weeks 3days AC = 20weeks 0 days FL = 19weeks 3days Growth Percentile= 10 Heart Rate = 150bpm Cerebellum = 18weeks 4days Humerus = 19weeks 6days HC/AC is 1.14 FL/BPD is 0.7 FL/AC is 0.21 IMPRESSION: 1. Viable fetus in the breech presentation with an anterior placenta grade 1. 2. The fluid is within normal limits with an MVP 3.62 cm. 3. Anatomical scan appears normal. 4. biometry is off by a few days and this is a result of the due date being incorrect when the patient registered. TAO is 06/21/2024 based on an early ultrasound. 5. There is a thickening of the anterior wall of the uterus that could represent a contraction and suggest repeat scan at 28 weeks. Dictated by: Donnie Yeh MD 01/30/2024 16:11 Donnie Yeh MD in [place] 01/30/2024 16:11
== END 2024-01-30 23:59 | disposition home or self-care (01) ==
LOC: RAD 12:40
PROVIDERS: PCP Physician Assistant; Visit Provider Nurse Practitioner Obstetrics & Gynecology
DX: Z36.89 Encounter for other specified antenatal screening (principal); Z3A.20 20 weeks gestation of pregnancy
CPT/HCPCS: 76811

== ENCOUNTER 2024-02-07 02:14 | Emergency (ER) | payer BC, SELFPAY ==
[2024-02-07 02:15] VITALS: BP 119/75; PULSE 88; RESP 18; TEMP 36.8; O2SAT 98; BMI 31.1
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
--- NOTE | 2024-02-07 02:37 | PC.NURSE ---
heart tone: 140
[2024-02-07 02:42] LABS: Microscopic, Urine URINE MICROSCOPIC (MICROSCOPIC)
[2024-02-07 02:43] LABS: Basophils % 0.4 % (0.1-2.0); Eosinophils # 0.2 K/mm3 (0.0-0.4); Eosinophils % 2.4 % (0.1-12.0); Hematocrit 35.2 % (37.0-47.0); Hemoglobin 11.2 g/dL (12.2-16.2); Lymphocytes # 1.7 K/mm3 (0.7-4.5); Lymphocytes % 19.2 % (10-50); Mean Corpuscular HGB Conc 31.8 g/dL (31.8-35.4); Mean Corpuscular Hemoglobin 28.5 pg (27.0-31.2); Mean Corpuscular Volume 89.9 fl (81-99); Mean Platelet Volume 8.4 fl (7.4-10.4); Monocytes # 0.5 K/mm3 (0.1-1.0); Monocytes % 5.1 % (1.7-9.3); Neutrophils # 6.4 K/mm3 (1.8-7.8); Neutrophils % 72.8 % (37.0-80.0); Platelet Count 320 K/mm3 (142-424); Red Blood Count 3.92 M/mm3 (4.20-5.40); Red Cell Distribution Width 17.9 % (11.5-17.5); White Blood Count 8.8 K/mm3 (4.8-10.8)
[2024-02-07 02:44] LABS: Appearance,Urine CLEAR (Clear); Bilirubin,Urine Negative (Negative); Blood, Urine Negative (Negative); Color,Urine YELLOW (Yellow); Glucose,Urine (UA) Negative (Negative); Ketones,Urine Negative (Negative); Leukocyte Esterase,Urine Negative (Negative); Nitrate,Urine Negative (Negative); Protein,Urine Negative (Negative); Urobilinogen,Urine 0.2 EU/dl (0.2)
[2024-02-07 02:48] LABS: Albumin Level 3.3 g/dl (3.5-5.0); Chloride 108 mmol/L (98-107); Potassium 3.6 mmoL/L (3.5-5.1); Sodium 133 mmol/L (136-145)
[2024-02-07 02:50] LABS: Bacteria,Urine Trace /lpf; WBC,Urine Occasional #/hpf (0-3)
[2024-02-07 02:50] LABS: Alanine Aminotransferase 38 U/L (12-78); Aspartate Amino Transferase 43 U/L (14-36); Bilirubin,Total 0.4 mg/dl (0.2-1.3); Blood Urea Nitrogen 5 mg/dl (7-17); Creatinine Clearance Estimated 253 mL/min (50-200); Estimated Glomerular Filt Rate 189 ml/min (>60); GFR (African American) 228 ML/MIN (>60)
[2024-02-07 02:51] LABS: Alkaline Phosphatase 83 U/L (38-126); Anion Gap 4.6 mEq/L (5-15); Calcium 8.6 mg/dl (8.4-10.2); Carbon Dioxide 24 mmol/L (22.0-30.0); Globulin 3.2 g/dL (1.3-3.2); Glucose 99 mg/dl (74-100); Lipase 40 U/L (23-300); Total Protein,Serum 6.5 g/dl (6.3-8.2)
--- NOTE | 2024-02-07 03:04 | PC.NURSE ---
Attending spoke to Dr. Beverly Hurd who recommends patient go to OB Triage.
[2024-02-07 03:05] VITALS: BP 127/83; PULSE 87; RESP 17; TEMP 36.8; O2SAT 98
== END 2024-02-07 03:15 | disposition home or self-care (01) ==
PROVIDERS: Emergency Provider Emergency Medicine; PCP Physician Assistant
DX: O26.892 Other specified pregnancy related conditions, second trimester (principal); S39.012A Strain of muscle, fascia and tendon of lower back, initial encounter; R10.30 Lower abdominal pain, unspecified; R30.0 Dysuria; Z3A.21 21 weeks gestation of pregnancy; V47.5XXA Car driver injured in collision with fixed or stationary object in traffic accident, initial encounter; Y92.410 Unspecified street and highway as the place of occurrence of the external cause
CPT/HCPCS: 80053; 81001; 83690; 85025; 86850; 99284

== ENCOUNTER 2024-02-07 03:17 | Outpatient (CLI) | payer BC, SELFPAY ==
[2024-02-07 03:23] VITALS: RESP 20; TEMP 37; O2SAT 100; BMI 31.2
[2024-02-07] MEDS: ACETAMINOPHEN 500MG TAB 1000 MG PO (04:08)
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
[2024-02-07 07:40] VITALS: BP 107/55; PULSE 85; RESP 18; TEMP 36.7; O2SAT 97
[2024-02-07] MEDS: RHO(D) IMMUNE GLOBULIN 1,500 UNIT (300MCG) SYRINGE 300 MCG IM (11:02)
== END 2024-02-07 11:10 | disposition home or self-care (01) ==
LOC: OBOUT 03:18 → OB 03:19
PROVIDERS: PCP Physician Assistant; Visit Provider Obstetrics & Gynecology
DX: Z04.1 Encounter for examination and observation following transport accident (principal); Z3A.14 14 weeks gestation of pregnancy
CPT/HCPCS: 36415; 76805; 85460; G0463; J2790

== ENCOUNTER 2024-03-23 15:07 | Outpatient (CLI) | payer BC, SELFPAY ==
[2024-03-23 15:17] VITALS: BMI 34.0
[2024-03-23 15:28] VITALS: BP 126/63; PULSE 98; RESP 18; TEMP 36.9; O2SAT 97; BMI 34.0
[2024-03-23 15:37] LABS: Amphetamine/Metha Screen,Urine Negative ng/ml (<1000); Benzodiazepines Screen,Urine Negative ng/ml (<200)
[2024-03-23 15:38] LABS: Barbiturates Screen,Urine Negative ng/ml (<200)
[2024-03-23 15:39] LABS: Cannabinoid Screen,Urine Negative ng/ml (<50); Cocaine Screen,Urine Negative ng/ml (<300)
[2024-03-23 15:40] LABS: Methadone Screen,Urine Negative ng/ml (<300); Opiate Screen,Urine Negative ng/ml (<300)
[2024-03-23 15:41] LABS: Phencyclidine Screen,Urine Negative ng/ml (<25)
[2024-03-23 16:02] LABS: Microscopic, Urine URINE MICROSCOPIC (MICROSCOPIC)
[2024-03-23 16:10] LABS: Appearance,Urine CLEAR (Clear); Bilirubin,Urine Negative (Negative); Blood, Urine Negative (Negative); Color,Urine YELLOW (Yellow); Glucose,Urine (UA) TRACE (Negative); Ketones,Urine Negative (Negative); Leukocyte Esterase,Urine Negative (Negative); Nitrate,Urine Negative (Negative); PH,Urine 6.5 (5.0-8.5); Protein,Urine Negative (Negative); Specific Gravity, Urine 1.015 (1.005-1.030); Urobilinogen,Urine 0.2 EU/dl (0.2)
== END 2024-03-23 16:37 | disposition home or self-care (01) ==
LOC: OBOUT 15:08 → OB 15:09
PROVIDERS: PCP Internal Medicine; Visit Provider Obstetrics & Gynecology
DX: O60.02 Preterm labor without delivery, second trimester (principal); Z3A.27 27 weeks gestation of pregnancy
CPT/HCPCS: 80307; 81001; G0463

== ENCOUNTER 2024-03-27 12:02 | Outpatient (CLI) | payer BC, SELFPAY ==
--- NOTE | 2024-03-27 12:12 | US_ITS ---
PROCEDURE: US OB FOLLOW UP CLINICAL INDICATION: look at the placenta and anterior uterine wall COMPARISON: US US OB <= 14 WEEKS FETUS from 11/09/2023 US US OB /MATERNAL DETAIL from 01/30/2024 US US OB >= 14 WEEKS FETUS from 02/07/2024 FINDINGS: Transabdominal sonographic images of the pelvis were obtained. The following parameters are obtained: From her established due date she is 27weeks 5days Viable fetus in the cephalic presentation with an anterior placenta grade 1. The thickening of the anterior uterine wall seen on the previous exam is not seen today. The cervix measures 3.9 cm. heart rate: 144bpm bpm. Estimated weight: 1352 grams, 3 lb 0 oz BPD: 26weeks 6days, 13 percentile HC: 27weeks 5days, 17 percentile AC: 30weeks 1day, 96 percentile FL: 28weeks 6days, 68 percent HC/AC: 0.98 FL/BPD: 0.82 FL/AC: 0.21 Growth percentile: 90 Amniotic fluid index: 18.77cm, MVP 5.61 cm No obvious anomalies evident. profile seen, stomach, bladder, kidneys, three-vessel cord, four chamber heart appear normal. IMPRESSION: 1. Viable fetus in the cephalic presentation with an anterior placenta grade 1. 2. The previously described thickening of the anterior uterine wall is not seen today. 3. The fluid is within normal limits with an amniotic fluid index 18.77 cm, MVP 5.61 cm. 4. There has been good interval growth with the fetus currently 90th percentile. The abdominal circumference is 2 weeks ahead. 5. Limited anatomical scan appears normal. Dictated by: Donnie Yeh MD 03/28/2024 07:33 Donnie Yeh MD in [facility] 03/28/2024 07:33
== END 2024-03-27 23:59 | disposition home or self-care (01) ==
LOC: RAD 12:03
PROVIDERS: PCP Physician Assistant; Visit Provider Nurse Practitioner Obstetrics & Gynecology
DX: Z36.2 Encounter for other antenatal screening follow-up (principal); Z3A.28 28 weeks gestation of pregnancy
CPT/HCPCS: 76816

== ENCOUNTER 2024-04-03 12:26 | Outpatient (CLI) | payer BC, SELFPAY | END 2024-04-03 23:59 | disposition home or self-care (01) | LOC: INF 12:27 | PROVIDERS: Visit Provider Nurse Practitioner Obstetrics & Gynecology | DX: Z34.90 Encounter for supervision of normal pregnancy, unspecified, unspecified trimester (principal) ==

== ENCOUNTER 2024-04-04 07:38 | Outpatient (CLI) | payer BC, SELFPAY ==
[2024-04-04 07:59] LABS: Basophils # 0.1 K/mm3 (0-0.2); Basophils % 0.8 % (0.1-2.0); Eosinophils # 0.4 K/mm3 (0.0-0.4); Eosinophils % 3.6 % (0.1-12.0); Hematocrit 32.8 % (37.0-47.0); Hemoglobin 11.4 g/dL (12.2-16.2); Lymphocytes # 1.6 K/mm3 (0.7-4.5); Lymphocytes % 15.7 % (10-50); Mean Corpuscular HGB Conc 34.8 g/dL (31.8-35.4); Mean Corpuscular Hemoglobin 30.5 pg (27.0-31.2); Mean Corpuscular Volume 87.8 fl (81-99); Mean Platelet Volume 7.9 fl (7.4-10.4); Monocytes # 0.6 K/mm3 (0.1-1.0); Monocytes % 5.7 % (1.7-9.3); Neutrophils # 7.6 K/mm3 (1.8-7.8); Neutrophils % 74.2 % (37.0-80.0); Platelet Count 314 K/mm3 (142-424); Red Blood Count 3.74 M/mm3 (4.20-5.40); Red Cell Distribution Width 15.5 % (11.5-17.5); White Blood Count 10.2 K/mm3 (4.8-10.8)
[2024-04-04 08:13] LABS: Glucose,Fasting 89 mg/dl (74-100)
[2024-04-04] MEDS: RHO(D) IMMUNE GLOBULIN 1,500 UNIT (300MCG) SYRINGE 300 MCG IM (09:38)
[2024-04-04 09:40] VITALS: BP 113/61; PULSE 99; RESP 18; O2SAT 97
[2024-04-04 10:13] LABS: Glucose 1 Hour 178 mg/dL (74-100)
[2024-04-05 11:15] LABS: Rapid Plasma Reagin Ab Titer Non Reactive titer (NonRea<1:1)
== END 2024-04-04 09:40 | disposition home or self-care (01) ==
LOC: LAB 07:39 → INF 09:06
PROVIDERS: PCP Physician Assistant; Visit Provider Nurse Practitioner Obstetrics & Gynecology
DX: Z34.90 Encounter for supervision of normal pregnancy, unspecified, unspecified trimester (principal)
CPT/HCPCS: 36415; 82951; 85025; 86593; 86870; 96372; J2790

== ENCOUNTER 2024-04-05 07:10 | Outpatient (CLI) | payer BC, SELFPAY ==
[2024-04-05 08:10] LABS: Glucose,Fasting 75 mg/dl (74-100)
[2024-04-05 09:01] LABS: Glucose 1 Hour 172 mg/dL (74-100)
[2024-04-05 09:58] LABS: Glucose 2 Hour 172 mg/dL (74-100)
[2024-04-05 10:57] LABS: Glucose 3 Hour 144 mg/dL (74-100)
== END 2024-04-05 23:59 | disposition home or self-care (01) ==
LOC: LAB 07:12
PROVIDERS: PCP Physician Assistant; Visit Provider Nurse Practitioner Obstetrics & Gynecology
DX: Z34.90 Encounter for supervision of normal pregnancy, unspecified, unspecified trimester (principal)
CPT/HCPCS: 36415; 82951

== ENCOUNTER 2024-04-27 22:00 | Outpatient (CLI) | payer BC, SELFPAY ==
[2024-04-27 22:25] VITALS: BP 106/53; PULSE 107; RESP 17; TEMP 36.9; O2SAT 96; BMI 35.8
[2024-04-27 23:37] LABS: Microscopic, Urine URINE MICROSCOPIC (MICROSCOPIC)
[2024-04-27 23:38] LABS: Appearance,Urine CLEAR (Clear); Bilirubin,Urine Negative (Negative); Blood, Urine Negative (Negative); Color,Urine YELLOW (Yellow); Glucose,Urine (UA) Negative (Negative); Ketones,Urine Negative (Negative); Leukocyte Esterase,Urine 1+ (Negative); Nitrate,Urine Negative (Negative); Protein,Urine Negative (Negative); Urobilinogen,Urine 0.2 EU/dl (0.2)
[2024-04-27 23:41] LABS: Basophils % 0.5 % (0.1-2.0); Eosinophils # 0.2 K/mm3 (0.0-0.4); Eosinophils % 2.2 % (0.1-12.0); Hematocrit 33.8 % (37.0-47.0); Hemoglobin 11.7 g/dL (12.2-16.2); Lymphocytes # 1.5 K/mm3 (0.7-4.5); Lymphocytes % 17.3 % (10-50); Mean Corpuscular HGB Conc 34.5 g/dL (31.8-35.4); Mean Corpuscular Hemoglobin 30.5 pg (27.0-31.2); Mean Corpuscular Volume 88.2 fl (81-99); Mean Platelet Volume 7.7 fl (7.4-10.4); Monocytes # 0.6 K/mm3 (0.1-1.0); Monocytes % 6.6 % (1.7-9.3); Neutrophils # 6.5 K/mm3 (1.8-7.8); Neutrophils % 73.5 % (37.0-80.0); Platelet Count 292 K/mm3 (142-424); Red Blood Count 3.83 M/mm3 (4.20-5.40); Red Cell Distribution Width 15.5 % (11.5-17.5); White Blood Count 8.9 K/mm3 (4.8-10.8)
[2024-04-27] MEDS: ACETAMINOPHEN 500MG TAB 1000 MG PO (23:41)
[2024-04-27] MEDS: LACTATED RINGERS 1000ML 1,000 ML 999 ML IV (23:41)
[2024-04-27 23:49] LABS: Benzodiazepines Screen,Urine Negative ng/ml (<200)
[2024-04-27 23:50] LABS: Amphetamine/Metha Screen,Urine Negative ng/ml (<1000); Barbiturates Screen,Urine Negative ng/ml (<200)
[2024-04-27 23:51] LABS: Cannabinoid Screen,Urine Negative ng/ml (<50); Cocaine Screen,Urine Negative ng/ml (<300)
[2024-04-27 23:52] LABS: Bacteria,Urine Trace /lpf; Methadone Screen,Urine Negative ng/ml (<300)
[2024-04-27 23:53] LABS: Opiate Screen,Urine Negative ng/ml (<300)
[2024-04-27 23:54] LABS: Phencyclidine Screen,Urine Negative ng/ml (<25)
[2024-04-27 23:56] LABS: Alanine Aminotransferase 21 U/L (12-78); Alkaline Phosphatase 102 U/L (38-126); Anion Gap 7.8 mEq/L (5-15); Aspartate Amino Transferase 37 U/L (14-36); Bilirubin,Total 0.3 mg/dl (0.2-1.3); Blood Urea Nitrogen 5 mg/dl (7-17); Calcium 8.6 mg/dl (8.4-10.2); Carbon Dioxide 24 mmol/L (22.0-30.0); Chloride 108 mmol/L (98-107); Creatinine Clearance Estimated 289 mL/min (50-200); Estimated Glomerular Filt Rate 187 ml/min (>60); Fibrinogen 342 mg/dL (229.9-363.5); GFR (African American) 227 ML/MIN (>60); Globulin 2.9 g/dL (1.3-3.2); Glucose 117 mg/dl (74-100); INR 0.91 (0.9-1.1); Potassium 3.8 mmoL/L (3.5-5.1); Prothrombin Time 10.3 seconds (10.1-12.5); Sodium 136 mmol/L (136-145); Total Protein,Serum 5.9 g/dl (6.3-8.2)
[2024-04-27 23:59] LABS: Activated Partial Thrombo Time 23.2 seconds (22.8-30.6)
[2024-04-28 01:13] LABS: Fetal Fibronectin (Rapid) Negative (Negative)
== END 2024-04-28 01:35 | disposition home or self-care (01) ==
LOC: OBOUT 22:03 → OB 22:14
PROVIDERS: PCP Physician Assistant; Visit Provider Obstetrics & Gynecology
DX: O26.893 Other specified pregnancy related conditions, third trimester (principal); R10.84 Generalized abdominal pain; W18.30XA Fall on same level, unspecified, initial encounter; Z3A.32 32 weeks gestation of pregnancy
CPT/HCPCS: 80053; 80307; 81001; 82731; 85025; 85384; 85460; 85610; 85730; 87086; G0463; J7120

== ENCOUNTER 2024-05-14 07:31 | Outpatient (CLI) | payer BC, SELFPAY ==
[2024-05-14 08:20] VITALS: BMI 34.5
[2024-05-14 08:59] LABS: Microscopic, Urine URINE MICROSCOPIC (MICROSCOPIC)
[2024-05-14 09:17] LABS: Appearance,Urine CLEAR (Clear); Bilirubin,Urine Negative (Negative); Blood, Urine Negative (Negative); Color,Urine YELLOW (Yellow); Glucose,Urine (UA) Negative (Negative); Ketones,Urine 1+ (Negative); Leukocyte Esterase,Urine TRACE (Negative); Nitrate,Urine Negative (Negative); Protein,Urine Negative (Negative); Specific Gravity, Urine 1.015 (1.005-1.030); Urobilinogen,Urine 0.2 EU/dl (0.2)
[2024-05-14 10:05] LABS: Amphetamine/Metha Screen,Urine Negative ng/ml (<1000); Benzodiazepines Screen,Urine Negative ng/ml (<200)
[2024-05-14 10:06] LABS: Bacteria,Urine Trace /lpf; Barbiturates Screen,Urine Negative ng/ml (<200)
[2024-05-14 10:15] LABS: Cannabinoid Screen,Urine Negative ng/ml (<50); Cocaine Screen,Urine Negative ng/ml (<300)
[2024-05-14 10:16] LABS: Methadone Screen,Urine Negative ng/ml (<300); Opiate Screen,Urine Negative ng/ml (<300)
[2024-05-14 10:17] LABS: Phencyclidine Screen,Urine Negative ng/ml (<25)
== END 2024-05-14 09:25 | disposition home or self-care (01) ==
LOC: OBOUT 07:33 → OB 07:34
PROVIDERS: PCP Internal Medicine; Visit Provider Obstetrics & Gynecology
DX: O60.03 Preterm labor without delivery, third trimester (principal); Z3A.34 34 weeks gestation of pregnancy
CPT/HCPCS: 80307; 81001; G0463

== ENCOUNTER 2024-05-21 18:29 | Outpatient (CLI) | payer BC, SELFPAY ==
[2024-05-21 18:33] VITALS: BMI 34.5
[2024-05-21 18:54] VITALS: BP 109/63; PULSE 81; RESP 20; TEMP 36.8; O2SAT 98; BMI 34.7
[2024-05-21 18:57] LABS: Microscopic, Urine URINE MICROSCOPIC (MICROSCOPIC)
[2024-05-21 19:00] LABS: Appearance,Urine CLEAR (Clear); Bilirubin,Urine Negative (Negative); Blood, Urine TRACE-I (Negative); Color,Urine YELLOW (Yellow); Glucose,Urine (UA) Negative (Negative); Ketones,Urine Negative (Negative); Leukocyte Esterase,Urine 1+ (Negative); Nitrate,Urine Negative (Negative); Protein,Urine Negative (Negative); Specific Gravity, Urine 1.015 (1.005-1.030); Urobilinogen,Urine 0.2 EU/dl (0.2)
[2024-05-21 19:09] LABS: Fetal Membrane Rupture (Rapid) Negative (Negative)
[2024-05-21 19:12] LABS: Amphetamine/Metha Screen,Urine Negative ng/ml (<1000); Barbiturates Screen,Urine Negative ng/ml (<200)
[2024-05-21 19:13] LABS: Benzodiazepines Screen,Urine Negative ng/ml (<200); Cannabinoid Screen,Urine Negative ng/ml (<50)
[2024-05-21 19:14] LABS: Cocaine Screen,Urine Negative ng/ml (<300)
[2024-05-21 19:15] LABS: Methadone Screen,Urine Negative ng/ml (<300); Opiate Screen,Urine Negative ng/ml (<300)
[2024-05-21 19:16] LABS: Phencyclidine Screen,Urine Negative ng/ml (<25)
== END 2024-05-21 19:36 | disposition home or self-care (01) ==
LOC: OBOUT 18:31 → OB 18:31
PROVIDERS: Visit Provider Nurse Practitioner Obstetrics & Gynecology
DX: O42.92 Full-term premature rupture of membranes, unspecified as to length of time between rupture and onset of labor (principal); Z3A.35 35 weeks gestation of pregnancy
CPT/HCPCS: 59025; 80307; 81001; 84112; 87086

== ENCOUNTER 2024-05-30 16:18 | Outpatient (CLI) | payer BC, SELFPAY | END 2024-05-30 23:59 | disposition home or self-care (01) | LOC: LAB.DROPOF 16:18 | PROVIDERS: PCP Obstetrics & Gynecology; Visit Provider Obstetrics & Gynecology | DX: Z34.90 Encounter for supervision of normal pregnancy, unspecified, unspecified trimester (principal) | CPT/HCPCS: 86403 ==

== ENCOUNTER 2024-06-13 02:24 | Outpatient (CLI) | payer BC, SELFPAY ==
[2024-06-13 02:26] VITALS: BMI 35.6
[2024-06-13 02:40] VITALS: BP 106/63; PULSE 95; RESP 18; TEMP 36.9; O2SAT 98; BMI 35.6
[2024-06-13 02:54] LABS: Microscopic, Urine URINE MICROSCOPIC (MICROSCOPIC)
[2024-06-13 02:57] LABS: Appearance,Urine CLEAR (Clear); Bilirubin,Urine Negative (Negative); Blood, Urine Negative (Negative); Color,Urine YELLOW (Yellow); Glucose,Urine (UA) Negative (Negative); Ketones,Urine Negative (Negative); Leukocyte Esterase,Urine 1+ (Negative); Nitrate,Urine Negative (Negative); Protein,Urine Negative (Negative); Specific Gravity, Urine 1.015 (1.005-1.030); Urobilinogen,Urine 0.2 EU/dl (0.2)
[2024-06-13 03:07] LABS: Barbiturates Screen,Urine Negative ng/ml (<200)
[2024-06-13 03:08] LABS: Benzodiazepines Screen,Urine Negative ng/ml (<200)
[2024-06-13 03:09] LABS: Amphetamine/Metha Screen,Urine Negative ng/ml (<1000); Cannabinoid Screen,Urine Negative ng/ml (<50)
[2024-06-13 03:10] LABS: Cocaine Screen,Urine Negative ng/ml (<300)
[2024-06-13 03:11] LABS: Methadone Screen,Urine Negative ng/ml (<300); Opiate Screen,Urine Negative ng/ml (<300)
[2024-06-13 03:12] LABS: Phencyclidine Screen,Urine Negative ng/ml (<25)
[2024-06-13 03:18] LABS: Fetal Membrane Rupture (Rapid) Negative (Negative)
[2024-06-13 03:27] LABS: Bacteria,Urine 1+ /lpf
== END 2024-06-13 04:00 | disposition home or self-care (01) ==
LOC: OBOUT 02:25 → OB 02:26
PROVIDERS: PCP Internal Medicine; Visit Provider Nurse Practitioner Obstetrics & Gynecology
DX: O42.913 Preterm premature rupture of membranes, unspecified as to length of time between rupture and onset of labor, third trimester (principal); Z3A.38 38 weeks gestation of pregnancy
CPT/HCPCS: 80307; 81001; 84112; 87086; G0463

== ENCOUNTER 2024-06-17 04:58 | Inpatient (IN) | payer BC, SELFPAY ==
[2024-06-17 05:03] VITALS: BMI 36.0
[2024-06-17 05:15] VITALS: BP 107/59; PULSE 97; RESP 18; TEMP 36.9; O2SAT 98; BMI 36.0
[2024-06-17 05:33] LABS: Microscopic, Urine URINE MICROSCOPIC (MICROSCOPIC)
[2024-06-17 05:37] LABS: Basophils # 0.1 K/mm3 (0-0.2); Basophils % 0.5 % (0.1-2.0); Eosinophils # 0.1 K/mm3 (0.0-0.4); Eosinophils % 0.6 % (0.1-12.0); Hematocrit 34.8 % (37.0-47.0); Hemoglobin 11.8 g/dL (12.2-16.2); Lymphocytes # 1.5 K/mm3 (0.7-4.5); Lymphocytes % 13.3 % (10-50); Mean Corpuscular HGB Conc 33.9 g/dL (31.8-35.4); Mean Corpuscular Hemoglobin 29.8 pg (27.0-31.2); Mean Corpuscular Volume 87.9 fl (81-99); Mean Platelet Volume 10.3 fl (7.4-10.4); Monocytes # 0.9 K/mm3 (0.1-1.0); Monocytes % 7.8 % (1.7-9.3); Neutrophils # 8.8 K/mm3 (1.8-7.8); Neutrophils % 76.6 % (37.0-80.0); Platelet Count 271 K/mm3 (142-424); Red Blood Count 3.96 M/mm3 (4.20-5.40); Red Cell Distribution Width 14.6 % (11.5-17.5); White Blood Count 11.5 K/mm3 (4.8-10.8)
[2024-06-17 05:37] LABS: Appearance,Urine CLEAR (Clear); Bilirubin,Urine Negative (Negative); Blood, Urine Negative (Negative); Color,Urine YELLOW (Yellow); Glucose,Urine (UA) Negative (Negative); Ketones,Urine Negative (Negative); Leukocyte Esterase,Urine 1+ (Negative); Nitrate,Urine Negative (Negative); PH,Urine 6.5 (5.0-8.5); Protein,Urine Negative (Negative); Specific Gravity, Urine 1.025 (1.005-1.030); Urobilinogen,Urine 0.2 EU/dl (0.2)
[2024-06-17 05:47] LABS: Barbiturates Screen,Urine Negative ng/ml (<200); Benzodiazepines Screen,Urine Negative ng/ml (<200)
[2024-06-17 05:48] LABS: Amphetamine/Metha Screen,Urine Negative ng/ml (<1000); Cannabinoid Screen,Urine Negative ng/ml (<50)
[2024-06-17 05:49] LABS: Glucose,Random 100 mg/dL (74-100)
[2024-06-17 05:49] LABS: Cocaine Screen,Urine Negative ng/ml (<300)
[2024-06-17 05:50] LABS: Methadone Screen,Urine Negative ng/ml (<300); Opiate Screen,Urine Negative ng/ml (<300)
[2024-06-17 05:51] LABS: Phencyclidine Screen,Urine Negative ng/ml (<25)
[2024-06-17 05:54] LABS: Bacteria,Urine Trace /lpf
[2024-06-17] MEDS: DEXTROSE 5%-LACTATED RINGERS 1,000 ML 125 ML IV (06:09)
[2024-06-17] MEDS: OXYTOCIN/RINGERS LACTATE 30 UNITS/500 ML BAG IV (06:09)
[2024-06-17] MEDS: LACTATED RINGERS 1000ML 1,000 ML 500 ML IV (06:54)
[2024-06-17] MEDS: ePHEDrine SULF 50MG/ML VIAL 10 MG IV (07:54)
[2024-06-17] MEDS: ONDANSETRON 4MG/2ML VIAL 4 MG IV (07:58)
--- NOTE | 2024-06-17 08:13 | EXP.LABOR.NO ---
Labor Note Subjective: Date: 06/17/24 Time: 08:13 regular contraction Objective: NST:: Reactive Contractions:: every 2-3 minutes Cervical Dilation:: 4 Effacement:: 75% Station: -2 Membranes: artificially ruptured Comment:: I ruptured her membranes and there was clear fluid. Fetus: Monitoring?: Yes monitoring type:: Internal and External Comment:: I applied an IUPC. Assessment: Labor progressing?: Yes Cephalopelvic disproportion?: No Plan: Anesthesia for epidural?: Yes Continue to labor down?: Yes Plan for ?: No Continue to monitor?: Yes Start pushing?: No Comment:: We will expect a vaginal delivery.
--- NOTE | 2024-06-17 08:14 | P.HP_ITS ---
History of Present Illness *Admission Date: 06/17/24 *Reason for visit:: Term , gestational diabetes on insulin *History of present illness: She is a 29-year-old 3 para 2 at 39+ weeks gestational age. She has been on insulin for her gestational diabetes and as result of that was brought in for induction of labor at term. A Rh- blood Rubella immune Group B streptococcus negative. [facility] Disclaimer: The information contained in this section may have been updated after the patient was seen, as this information can be updated by other users. Medical History Gestational diabetes mellitus (GDM) requiring insulin Glaucoma Chest pain, unspecified Back pain Hypokalemia Obesity Cataract Surgical History Hx of wisdom tooth extraction Hx of cataract surgery Family History No significant family history Social History Smoking Status: Never smoker second hand exposure: No alcohol intake: current alcohol intake frequency: a few times a week substance use type: denies use current occupational status: employed Travel in the last 8 weeks: None Other Medical History Have you received the Flu Vaccine for this season: No Have you received the Pneumonia Vaccine: No Review of Systems Review of Systems Review of systems:: pertinent systems reviewed and negative unless documented below Meds Home Medications and Allergies Home Medications ?Medication ?Instructions ?Recorded ?Confirmed ?Type dorzolamide 22.3 mg-timolol 6.8 1 drp ophthalmic (eye) DAILY 06/15/21 06/13/24 History mg/mL eye drops vits no.126-ferrous fum 1 tab PO DAILY 12/06/23 06/17/24 History 28 mg iron-folic acid 800 mcg tablet (Classic ) ferrous fumarate 324 mg (106 mg 324 mg PO DAILY #30 tabs 01/02/24 06/17/24 Rx iron) tablet potassium chloride 20 mEq 40 meq (2 x 20 mEq) PO DAILY #60 01/02/24 06/17/24 Rx tablet,extended release tabs blood-glucose sensor (Dexcom G7 #1 ea 05/30/24 06/13/24 History Sensor device) insulin glargine-yfgn 100 unit/mL 6 unit SQ QPM 05/30/24 06/17/24 History (3 mL) subcutaneous pen (Semglee (insulin glargine-yfgn) Pen) pen needle, diabetic 31 gauge x #1,200 ea 05/30/24 06/13/24 History 08/11 (BD Ultra-Fine Mini Pen Needle) New Prescriptions to Start Prescriptions: Allergies Allergy/AdvReac Type Severity Reaction Status Date / Time No Known Drug Allergies Allergy Unknown -- Verified 06/17/24 06:47 Exam Data for Last 24 hours Vital signs and Labs for Last 24 Hours: Temp Pulse Resp BP Pulse Ox O2 Del Method 98.4 F 97 H 18 107/59 L 98 Room Air 06/17/24 05:15 06/17/24 05:15 06/17/24 05:15 06/17/24 05:15 06/17/24 05:15 06/17/24 05:15 Laboratory Results - last 24 hr 06/17/24 05:10: Urine Color Yellow, Urine Appearance Clear, Urine pH 6.5, Ur Specific [place] 1.025, Urine Protein Negative, Urine Glucose (UA) Negative, Urine Ketones Negative, Urine Blood Negative, Urine Nitrate Negative, Urine Bilirubin Negative, Urine Urobilinogen 0.2, Ur Leukocyte Esterase 1+ A, Urine RBC None, Urine WBC 3-5, Ur Squamous Epith Cells 5-10, Urine Bacteria Trace, Urine Opiates Screen Negative, Urine Methadone Screen Negative, Ur Barbituates Screen Negative, Ur Phencyclidine Scrn Negative, Ur Amphetamines Screen Negative, U Benzodiazepines Scrn Negative, Urine Cocaine Screen Negative, U Marijuana (THC) Screen Negative 06/17/24 05:25: WBC 11.5 H, RBC 3.96 L, Hgb 11.8 L, Hct 34.8 L, MCV 87.9, MCH 29.8, MCHC 33.9, RDW 14.6, Plt Count 271, MPV 10.3, Neut % (Auto) 76.6, Lymph % (Auto) 13.3, [place] % (Auto) 7.8, Eos % (Auto) 0.6, Baso % (Auto) 0.5, Neut # (Auto) 8.8 H, Lymph # (Auto) 1.5, [place] # (Auto) 0.9, Eos # (Auto) 0.1, Baso # (Auto) 0.1, Random Glucose 100, Crossmatch (AHG) See Detail I & O for Last 24 hours: Intake & Output 06/14/24 06/15/24 06/16/24 06/17/24 11:59 11:59 11:59 11:59 Weight 197 lb Constitutional Constitutional: no acute distress *Routine HEENT Exam Head: Present normocephalic Eye: Present EOMI and PERRL ENT: Present mucous membranes moist *Routine Neck Exam Neck: Present supple; Absent lymphadenopathy *Routine Respiratory Exam Respiratory: Present CTA bilaterally *Routine Cardiovascular Exam Cardiovascular: Present RRR *Routine Abdominal Exam Abdominal: Present soft and normoactive bowel sounds; Absent tenderness *Routine Rectal Exam Rectal:: deferred *Routine Genitalia Exam Genitalia:: deferred *Routine Extremities Exam Extremities: Absent cyanosis, clubbing or edema *Routine Skin Exam Skin: Present warm; Absent rash *Routine Neurological Exam Neurological: Present alert and oriented X3 Assessment and Plan *Assessment and plan (1) Gestational diabetes mellitus (GDM) requiring insulin: Status: Acute Category: Medical Code(s): O24.414 - Gestational diabetes mellitus in , insulin controlled Plan She is admitted for induction of labor at term. She has had her membranes ruptured and there is clear fluid. Nonstress test is reactive. Contractions are every 2 to 3 minutes.
--- NOTE | 2024-06-17 08:17 | P.PNANES_ITS ---
[facility] Disclaimer: The information contained in this section may have been updated after the patient was seen, as this information can be updated by other users. Medical History Gestational diabetes mellitus (GDM) requiring insulin Glaucoma Chest pain, unspecified Back pain Hypokalemia Obesity Cataract Surgical History Hx of wisdom tooth extraction Hx of cataract surgery Family History Other No significant family history Social History Smoking Status: Never smoker second hand exposure: No alcohol intake: current alcohol intake frequency: a few times a week substance use type: denies use current occupational status: employed Travel in the last 8 weeks: None [facility] Anesthesia Checklist Patient Identification Patient Identification: Arm Band Structural Data Admitted From: Inpatient Planned Operative Procedure/s: Labor Epidural Consent for Planned Operative Procedure(s) Verified: Yes Verified Documents: Surgical Consent and History and Physical Additional verifications Anesthesia Reactions: No Neurological Assessment Level of Consciousness: Awake, Alert and Appropriate Anesthesia Plan Anesthesia Risk discussed: Yes Anesthesia Plan: Verified ASA Class: II Anesthesia Type: Epidural
[2024-06-17 09:48] LABS: POC Glucose,Bedside 115 (70-110)
[2024-06-17] MEDS: OXYTOCIN/RINGERS LACTATE 30 UNITS/500 ML BAG 999 UNITS IV (10:24)
[2024-06-17] MEDS: OXYTOCIN/RINGERS LACTATE 30 UNITS/500 ML BAG 40 UNITS IV (10:31)
--- NOTE | 2024-06-17 11:05 | EXP.DN ---
Delivery Note Delivery Date:: 06/17/24 Delivery Time:: 10:22 Anesthesia Type: Epidural Was labor medically induced?: Yes Induction method: per pitocin protocol Gestational age (weeks): 39 delivered prior to 39 weeks?: No Justification for early elective delivery:: Diabetes Mellitus Infant Gender: Female at 1 minute: 7 at 5 minutes: 8 LAC or MLE?: LAC Delivery Procedure:: She is a 29-year-old 3 para 2 at 39 weeks gestational age. She has gestational diabetes on insulin. She was started on IV oxytocin had her membranes ruptured. Under labor epidural she progressed to full dilation and delivered spontaneously a liveborn female child at 10:22 AM on the morning of June 17, 2024. On deliver the head it was noted that she had a loose nuchal cord that was easily reduced. The anterior shoulder then easily delivered followed by the rest the infant's body atraumatically. The oropharynx and nasopharynx were bulb suctioned and the baby cried. We elected however to place an baby on the warmer for further care. The nurses assigned Apgars of 7 at 1 minute and 9 at 5 minutes. We then obtained cord blood. She received IV oxytocin using gentle traction on the cord and countertraction the fundus I was able to easily deliver the placenta 3 minutes after delivery. It had a normal three-vessel cord. She had a small posterior vaginal tear that was repaired with a single interrupted subcuticular 2-0 Vicryl Rapide suture. Estimated blood loss was approximately 200 cc. She has Rh- blood, she is rubella immune and group B streptococcus negative. She plans to bottlefeed. Laceration:: vaginal Placental Delivery Description: Spontaneous
[2024-06-17] MEDS: BENZOCAINE-MENTHOL SPRAY 56GM CAN TP (13:04)
[2024-06-17] MEDS: ACETAMINOPHEN 500MG TAB 1000 MG PO ×2 (13:04→22:42)
[2024-06-17] MEDS: IBUPROFEN 400 MG TABLET 800 MG PO ×2 (14:32→22:42)
[2024-06-17 15:17] LABS: RPR W/RFX Titers Nonreactive (Nonreactive)
[2024-06-17] MEDS: PRENATAL MULTIVITAMIN W/IRON 1 EACH PO (17:14)
[2024-06-17 19:56] VITALS: BP 115/61; PULSE 90; RESP 16; TEMP 36.9; O2SAT 97
[2024-06-18 04:47] VITALS: BP 100/52; PULSE 76; RESP 15; TEMP 36.7; O2SAT 98
--- NOTE | 2024-06-18 08:31 | EXP.ACUTE.PN ---
Subjective *Date: 06/18/24 *Time: 08:31 Interval history: She is doing well this morning. She is eating and drinking and ambulating. Her lochia is normal. She is breast-feeding. Medical Exam Vital signs and Labs for Last 24 Hours: Vital Signs Temp Pulse Resp BP Pulse Ox O2 Del Method 06/18/24 04:47 98.1 F 76 15 100/52 L 98 Room Air 06/17/24 19:56 98.5 F 90 16 115/61 97 Room Air Laboratory Results - last 24 hr 06/17/24 05:25: RPR w/Rflx to Titer Nonreactive, Blood Type A Negative, Antibody Screen Positive, Crossmatch (AHG) See Detail 06/17/24 09:40: POC Glucose 115 H 06/18/24 06:17: Baby's Rh Status Positive I & O for Labs for Last 24 Hours: Intake & Output 06/15/24 06/16/24 06/17/24 06/18/24 11:59 11:59 11:59 11:59 Weight 197 lb Head: Present normocephalic ENT: Present normal exam Neck: Present normal inspection Respiratory: Present normal respiratory effort; Absent accessory muscle use Assessment and Plan *Assessment and plan (1) Gestational diabetes mellitus (GDM) requiring insulin: Status: Acute Category: Medical Code(s): O24.414 - Gestational diabetes mellitus in , insulin controlled (2) Normal delivery at term: Status: Acute Category: Medical Code(s): O80 - Encounter for full-term uncomplicated delivery Plan She continues to do well. We will plan to send her home tomorrow.
[2024-06-18 09:50] LABS: Basophils # 0.1 K/mm3 (0-0.2); Basophils % 0.7 % (0.1-2.0); Eosinophils # 0.2 K/mm3 (0.0-0.4); Eosinophils % 1.8 % (0.1-12.0); Hemoglobin 10.9 g/dL (12.2-16.2); Lymphocytes # 1.7 K/mm3 (0.7-4.5); Lymphocytes % 12.6 % (10-50); Mean Corpuscular HGB Conc 30.3 g/dL (31.8-35.4); Mean Corpuscular Hemoglobin 28.8 pg (27.0-31.2); Mean Corpuscular Volume 95.2 fl (81-99); Mean Platelet Volume 10.8 fl (7.4-10.4); Monocytes % 7.7 % (1.7-9.3); Neutrophils # 10.2 K/mm3 (1.8-7.8); Neutrophils % 76.2 % (37.0-80.0); Platelet Count 213 K/mm3 (142-424); Red Blood Count 3.78 M/mm3 (4.20-5.40); Red Cell Distribution Width 15.1 % (11.5-17.5); White Blood Count 13.4 K/mm3 (4.8-10.8)
[2024-06-18] MEDS: ACETAMINOPHEN 500MG TAB 1000 MG PO ×2 (11:40→23:59)
[2024-06-18] MEDS: RHO(D) IMMUNE GLOBULIN 1,500 UNIT (300MCG) SYRINGE 300 MCG IM (11:48)
[2024-06-18 20:29] VITALS: BP 109/71; PULSE 96; RESP 18; TEMP 37.2; O2SAT 96
[2024-06-19] MEDS: IBUPROFEN 400 MG TABLET 800 MG PO (04:18)
[2024-06-19 04:25] VITALS: BP 100/61; PULSE 88; RESP 15; TEMP 36.8; O2SAT 98
[2024-06-19 08:33] VITALS: BP 116/77; PULSE 91; RESP 15; TEMP 36.5; O2SAT 98
--- NOTE | 2024-06-19 09:25 | P.DS_ITS ---
General Admission date:: 06/17/24 Discharge date: 06/19/24 HPI HPI HPI: She is a 29-year-old 3 para 2 at 39+ weeks gestational age. She has been on insulin for her gestational diabetes and as result of that was brought in for induction of labor at term. A Rh- blood Rubella immune Group B streptococcus negative. Hospital Course Hospital Course Hospital Course: She was started on IV oxytocin and progressed to full dilation under labor epidural. She delivered spontaneously a liveborn female child at 10:22 AM on the morning of June 17, 2024. The baby weighed 8 pounds 5 ounces and was 19- 1/2 inches long. She had Apgars of 7 at 1 minute and 8 at 5 minutes. She has done well and has remained afebrile throughout her hospitalization. She is eating and drinking and ambulating. She is breast- feeding. Her lochia is normal. She has a Rh- blood and the baby had a Rh+ blood so she has received RhoGAM. She was rubella immune and group B streptococcus negative. She is discharged home to follow-up with me in approximately 2 weeks time. She will continue with her vitamins and iron. She will stop her insulin now that she is delivered. She will continue to check her sugars. She will let me know how she does over the next couple weeks. She was given the usual instructions with respect to limiting her activity, driving and sexual activity. Her condition on discharge is stable and improved. Exam Data for Last 24 hours Vital signs and Labs for Last 24 Hours: Temp Pulse Resp BP Pulse Ox O2 Del Method 97.7 F 91 H 15 116/77 98 Room Air 06/19/24 08:33 06/19/24 08:33 06/19/24 08:33 06/19/24 08:33 06/19/24 08:33 06/19/24 08:33 Laboratory Results - last 24 hr 06/18/24 06:17: WBC 13.4 H, RBC 3.78 L, Hgb 10.9 L, Hct 36.0 L, MCV 95.2, MCH 28.8, MCHC 30.3 L, RDW 15.1, Plt Count 213, MPV 10.8 H, Neut % (Auto) 76.2, Lymph % (Auto) 12.6, [place] % (Auto) 7.7, Eos % (Auto) 1.8, Baso % (Auto) 0.7, Neut # (Auto) 10.2 H, Lymph # (Auto) 1.7, [place] # (Auto) 1.0, Eos # (Auto) 0.2, Baso # (Auto) 0.1 I & O for Last 24 hours: Intake & Output 06/16/24 06/17/24 06/18/24 06/19/24 11:59 11:59 11:59 11:59 Weight 197 lb Microbiology Reports for the Last 24 Hours: Microbiology 06/17/24 05:10 Urine,Clean Catch Urine Culture - Final Multiple organisms, suggests contamination. Constitutional Constitutional: no acute distress *Routine HEENT Exam Head: Present normocephalic ENT: Present mucous membranes moist *Routine Neck Exam Neck: Present full ROM *Routine Respiratory Exam Respiratory: Present normal respiratory effort; Absent accessory muscle use *Routine Rectal Exam Patient deferred: visual exam and digital exam Results Data Completed and Pending Labs on day of discharge: Labs from last 24 hours 06/18/24 06:17 WBC 13.4 H RBC 3.78 L Hgb 10.9 L Hct 36.0 L MCV 95.2 MCH 28.8 MCHC 30.3 L RDW 15.1 Plt Count 213 MPV 10.8 H Neut % (Auto) 76.2 Lymph % (Auto) 12.6 [place] % (Auto) 7.7 Eos % (Auto) 1.8 Baso % (Auto) 0.7 Neut # (Auto) 10.2 H Lymph # (Auto) 1.7 [place] # (Auto) 1.0 Eos # (Auto) 0.2 Baso # (Auto) 0.1 DS: Diagnosis Discharge Diagnosis (1) Gestational diabetes mellitus (GDM) requiring insulin: Status: Acute Code(s): O24.414 - Gestational diabetes mellitus in , insulin controlled (2) Normal delivery at term: Status: Acute Code(s): O80 - Encounter for full-term uncomplicated delivery Meds Home Medications and Allergies Home Medications ?Medication ?Instructions ?Recorded ?Confirmed ?Type dorzolamide 22.3 mg-timolol 6.8 1 drp ophthalmic (eye) BID 06/15/21 06/17/24 History mg/mL eye drops vits no.126-ferrous fum 1 tab PO DAILY 12/06/23 06/17/24 History 28 mg iron-folic acid 800 mcg tablet (Classic ) ferrous fumarate 324 mg (106 mg 324 mg PO DAILY #30 tabs 01/02/24 06/17/24 Rx iron) tablet potassium chloride 20 mEq 40 meq (2 x 20 mEq) PO DAILY #60 01/02/24 06/17/24 Rx tablet,extended release tabs New Prescriptions to Start Prescriptions: Allergies Allergy/AdvReac Type Severity Reaction Status Date / Time No Known Drug Allergies Allergy Unknown -- Verified 06/17/24 06:47 Discharge Plan Disposition Patient Disposition: Home, Self-Care Discharge Order Discharge Orders: Discharge Order (Routine); Ordered 06/19/24 Ordered By: Donnie Yeh Follow up Plan Follow up with: Donnie Yeh MD [Staff Physician] - 07/01/24 2:00 pm Prescriptions/Medication Reconciliation: Continued (DME) Dexcom G7 Sensor Device See Rx Instructions .ROUTE .MEDSUPPLY Qty: 1 Patient Comments: REPLACE SENSOR EVERY 10 DAYS Rx Instructions: As directed (DME) pen needle, diabetic [BD Ultra-Fine Mini Pen Needle] 31 gauge x 3/16 needle See Rx Instructions .ROUTE .MEDSUPPLY Qty: 1200 Patient Comments: USE 1 4 TIMES DAILY Rx Instructions: As directed insulin glargine-yfgn [Semglee(insulin glarg-yfgn)Pen] 100 unit/mL (3 mL) i nsulin pen 6 unit SQ QPM Patient Comments: INJECT 10 UNITS SUBCUTANEOUSLY ONCE DAILY dorzolamide-timolol 22.3-6.8 mg/mL drops 1 drp OPHTHALMIC BID Classic 28 mg iron- 800 mcg tablet 1 tab PO DAILY potassium chloride 20 mEq tablet extended release 40 meq PO DAILY Qty: 60 5RF ferrous fumarate 324 mg (106 mg iron) tablet 324 mg PO DAILY Qty: 30 8RF Problem Reconciliation Problems Reviewed?: Yes Patient Discharge Instructions ACTIVITY: No heavy lifting DIET: continue same diet Patient Instructions: Depression, Hemorrhage, DI for Labor and Delivery, Vaginal , DI for Pre-eclampsia, [facility] Post Discharge Instructions Print Language: Czech Providers Primary Care Provider: Vladimir Pollard Admit Provider: Donnie Yeh Attending Provider: Donnie Yeh
== END 2024-06-19 10:58 | disposition home or self-care (01) | DRG 807 ==
PROVIDERS: Admitting Provider Nurse Practitioner Obstetrics & Gynecology; PCP Internal Medicine; Visit Provider Nurse Practitioner Obstetrics & Gynecology
DX: O24.424 Gestational diabetes mellitus in childbirth, insulin controlled (principal); Z37.0 Single live birth; Z3A.39 39 weeks gestation of pregnancy; O69.81X0 Labor and delivery complicated by cord around neck, without compression, not applicable or unspecified; O70.0 First degree perineal laceration during delivery; O26.893 Other specified pregnancy related conditions, third trimester; Z67.11 Type A blood, Rh negative
CPT/HCPCS: 59025; 80307; 81001; 82947; 82962; 85025; 85461; 86592; 86850; 86870; 87086; 94761; G0283; J2405; J2790; J3010; J7120

== ENCOUNTER 2024-06-19 14:39 | Emergency (ER) | payer BC, SELFPAY ==
[2024-06-19 14:40] VITALS: BP 130/89; PULSE 93; RESP 18; TEMP 36.5; O2SAT 99; BMI 32.9
--- NOTE | 2024-06-19 14:40 | HMH.EDGENADL ---
Discharge Plan Disposition Patient Disposition: Home, Self-Care Condition: Good Prescriptions Prescriptions: No Action dorzolamide-timolol 22.3-6.8 mg/mL drops 1 drp OPHTHALMIC BID Classic 28 mg iron- 800 mcg tablet 1 tab PO DAILY potassium chloride 20 mEq tablet extended release 40 meq PO DAILY Qty: 60 5RF ferrous fumarate 324 mg (106 mg iron) tablet 324 mg PO DAILY Qty: 30 8RF Referrals Follow up/Referrals: Vladimir Pollard MD [Primary Care Provider] - See instructions Activity Restrictions/Add. Instructions Additional Instructions/Restrictions: As we discussed please utilize the disimpaction sheet that I gave you. If you have continued new or worsening symptoms follow-up with your PCP/MULLING MACHINE OPERATOR or return to the ER as needed. Clinical Impressions Clinical Impression: Abdominal pain, right lower quadrant Constipation Qualifiers: Constipation type: unspecified constipation type Qualified Code(s): K59.00 - Constipation, unspecified Instructions Patient Instructions: DI for Acute Abdominal Pain Print Language Print Language: Swedish Discharge ED Provider: Wyatt Fagan General Adult HPI <SHEN Diop - Last Filed: 06/19/24 19:35> General Chief complaint: Abdominal Pain Stated complaint: post R side pain Time Seen by Provider: 06/19/24 14:40 History of Present Illness HPI narrative: Patient presents for evaluation of right lower quadrant abdominal pain. Patient was just discharged about 4 hours ago after a vaginal delivery of a term . Patient however reports that she has not had a bowel movement since Monday. She reports that she got home and began having right lower quadrant abdominal pain and contacted MULLING MACHINE OPERATOR who referred her onto the emergency department she denies any fever chills hemoptysis hematochezia melena nausea vomiting diarrhea. She is able to eat and drink and passing gas. She is having normal postdelivery bleeding going through 1 pad every few hours. Related Data Home Medications ?Medication ?Instructions ?Recorded ?Confirmed dorzolamide 22.3 mg-timolol 6.8 1 drp ophthalmic (eye) BID 06/15/21 06/17/24 mg/mL eye drops vits no.126-ferrous fum 1 tab PO DAILY 12/06/23 06/17/24 28 mg iron-folic acid 800 mcg tablet (Classic ) Previous Rx's ?Medication ?Instructions ?Recorded ferrous fumarate 324 mg (106 mg 324 mg PO DAILY #30 tabs 01/02/24 iron) tablet potassium chloride 20 mEq 40 meq (2 x 20 mEq) PO DAILY #60 01/02/24 tablet,extended release tabs Allergies Allergy/AdvReac Type Severity Reaction Status Date / Time No Known Drug Allergies Allergy Unknown -- Verified 06/17/24 06:47 PFS <SHEN Diop - Last Filed: 06/19/24 19:35> [facility] Disclaimer: The information contained in this section may have been updated after the patient was seen, as this information can be updated by other users. Medical History Gestational diabetes mellitus (GDM) requiring insulin Glaucoma Chest pain, unspecified Back pain Hypokalemia Obesity Cataract Surgical History Hx of wisdom tooth extraction Hx of cataract surgery Family History No significant family history Social History (Updated 06/17/24 @ 12:54 by Joaquin Sultana RN) Smoking Status: Never smoker second hand exposure: No alcohol intake: current alcohol intake frequency: a few times a week substance use type: denies use current occupational status: employed Travel in the last 8 weeks: None Have you lived/traveled outside US in past 30 days?: No Contact w/someone who lives/traveled outside US past 30 days?: No Exposure to someone with infectious disease in past 14 days?: No Do you have a fever (greater than 100.4 F or 38 C)?: No Have you tested positive for COVID-19: No Exposed to someone with COVID-19 in past 14 days?: No Do you have a sore throat?: No Do you have a cough?: No Do you have any weakness?: No Do you have any diarrhea?: No Are you experiencing any unusual bleeding?: No Do you have any muscle aches/pain?: No Do you have any abdominal pain?: No Are you experiencing loss of taste or smell?: No Other Medical History Have you received the Flu Vaccine for this season: No Have you received the Pneumonia Vaccine: No <SEHN Diop - Last Filed: 06/19/24 19:35> ROS Obtained: Yes Systems reviewed as appropriate & no additional complaints except as documented Physical Exam <SHEN Diop - Last Filed: 06/19/24 19:35> General General appearance: alert Respiratory Respiratory exam: Present normal lung sounds bilaterally and accessory muscle use Cardiovascular Cardiovascular exam: Present regular rate Neurological Exam Neurological exam: Present alert and oriented X3 Medical Decision Making <SHEN Diop - Last Filed: 06/19/24 19:35> Medical Records Medical records reviewed: Yes I reviewed the patient's medical records. Screening: Per USPSTF and CDC recommendations, given the prevalence of disease in our region, it is our hospital?s policy to screen for HIV and viral Hepatitis for all patients aged 18 and over and those with ongoing risk factors. Chinedu Inquiry Pt receiving controlled substance: No Vital Signs: 06/19/24 14:40 06/19/24 15:15 06/19/24 17:19 Temperature 97.7 F 98.7 F Temperature Source Oral Pulse Rate 83 83 Pulse Rate [Radial] 93 H Respiratory Rate 18 13 Blood Pressure 116/67 135/77 Blood Pressure [Right Arm] 130/89 Blood Pressure Mean 83 Blood Pressure Mean [Right Arm] 102 Blood Pressure Source [Right Arm] Automatic Cuff Blood Pressure Position [Right Arm] Sitting 02 Sat by Pulse Oximetry 99 98 Oxygen Delivery Method Room Air Lab Data Lab results reviewed: Yes I reviewed the patient's lab results. Lab Results 06/19/24 14:50: WBC 9.4 D, RBC 3.95 L, Hgb 11.6 L, Hct 35.7 L, MCV 90.4, MCH 29.4, MCHC 32.5, RDW 14.7, Plt Count 231, MPV 10.2, Neut % (Auto) 74.8, Lymph % (Auto) 12.0, Allen % (Auto) 7.1, Eos % (Auto) 3.4, Baso % (Auto) 0.9, Neut # (Auto) 7.0, Lymph # (Auto) 1.1, Allen # (Auto) 0.7, Eos # (Auto) 0.3, Baso # (Auto) 0.1, Sodium 138, Potassium 3.9, Chloride 107, Carbon Dioxide 25, Anion Gap 9.9, BUN 9, Creatinine 0.50 L, Estimated Creat Clear 212, Estimated GFR 145, Est GFR ( Amer) 175, Glucose 98, Calcium 9.0, Magnesium 1.5 L, Total Bilirubin 0.1 L, AST 46 H, ALT 34, Alkaline Phosphatase 151 H, Total Protein 6.5, Albumin 3.1 L, Globulin 3.4 H, Albumin/Globulin Ratio 0.9 L, Procalcitonin 0.051, Urine Color Straw, Urine Appearance Cloudy, Urine pH 6.5, Ur Specific Hawley 1.010, Urine Protein Negative, Urine Glucose (UA) Negative, Urine Ketones Negative, Urine Blood 3+ A, Urine Nitrate Negative, Urine Bilirubin Negative, Urine Urobilinogen 0.2, Ur Leukocyte Esterase 2+ A, Urine RBC 10-20, Urine WBC 5-10, Ur Squamous Epith Cells 3-5, Urine Bacteria 1+, HCV Ab CARYN w/Rflx PCR Qn Negative, HIV Ag/Ab Combo Qual Negative 06/19/24 14:50 06/19/24 14:50 Orders (Tests/Meds): ED MEDICATIONS Discontinued Medications Generic Name Dose Route Start Last Admin Trade Name Freq PRN Reason Stop Dose Admin Acetaminophen 1,000 mg 06/19/24 14:50 06/19/24 15:17 Acetaminophen 1,000mg/100ml Vial IV 06/19/24 14:51 1,000 mg ONCE ONE Administration Sodium Chloride 1,000 mls @ 999 mls/hr 06/19/24 14:50 06/19/24 15:17 Sod Chlor 0.9% 1000ml Bag IV 06/19/24 15:50 999 mls/hr .Q1H1M ONE Administration Magnesium Sulfate 2 gm in 50 mls @ 50 mls/hr 06/19/24 16:16 06/19/24 16:22 Magnesium Sulfate 2gm/50ml Premix IV 06/19/24 17:15 50 mls/hr ONCE ONE Administration Iopamidol 75 ml 06/19/24 15:45 06/19/24 15:47 Iopamidol-370 (76%);100ml Bottle IV 06/19/24 15:46 75 ml ONCE ONE Administration Ondansetron HCl 4 mg 06/19/24 14:50 06/19/24 15:16 Ondansetron 4mg/2ml Vial IV 06/19/24 14:51 4 mg ONCE ONE Administration Sodium Chloride 10 ml 06/19/24 15:45 06/19/24 15:47 Sodium Chloride 0.9% 10ml Syr (Rad Only) IV 06/19/24 15:46 10 ml ONCE ONE Administration ORDERS Category Date Time Status CT abdomen pelvis w con Stat Cat Scan 06/19/24 14:50 Completed CBC w/Auto Diff [Complete Blood Count Auto Diff] Stat Lab 06/19/24 14:50 Completed CMP [Comprehensive Metabolic Panel] Stat Lab 06/19/24 14:50 Completed HIV Combo Stat Lab 06/19/24 14:50 Completed Hepatitis C Ab Qual. W/ RFX Stat Lab 06/19/24 14:50 Completed Magnesium Stat Lab 06/19/24 14:50 Completed Procalcitonin Stat Lab 06/19/24 14:50 Completed UA [Urinalysis and Microscopic] Stat Lab 06/19/24 14:50 Completed Urine Culture Stat Micro 06/19/24 14:50 Received Medical Decision Narrative: In summary patient is a 29-year-old female who presents to the emergency department for evaluation of right lower quadrant abdominal pain. Patient is hemodynamically stable with a blood pressure 130/89 heart rate 93 with normal sinus rhythm on the bedside monitor breathing 18 times a minute satting at 99% on room air upon arrival, and afebrile at 97.7.. Physical exam is remarkable for mild right lower quadrant tenderness just proximal to the inguinal crease without rebound or guarding or rigidity. Uterus is palpable but soft. Normal bowel sounds.. Differential diagnosis includes constipation versus urinary tract infection versus postdelivery complication etc. Initial workup will be conducted with hematologic labs urinalysis CT scan abdomen pelvis. Initial interventions include Tylenol and Toradol. Initial workup reviewed by me shows that her hematologic labs are nonactionable urinalysis is bland and my informal interpretation of her CT scan abdomen pelvis shows no acute processes but patient has constipation and a large stool burden without colonic thickening.. Upon repeat evaluation patient reported symptomatic improvement in her pain and is tolerating p.o. Given this patient is appropriate for discharge with a disimpaction sheet and strict return precautions. Patient follow-up with her PCP/MULLING MACHINE OPERATOR within 48 hours for recheck. <Wyatt Fagan MD - Last Filed: 06/19/24 21:15> Vital Signs: 06/19/24 14:40 06/19/24 15:15 06/19/24 17:19 Temperature 97.7 F 98.7 F Temperature Source Oral Pulse Rate 83 83 Pulse Rate [Radial] 93 H Respiratory Rate 18 13 Blood Pressure 116/67 135/77 Blood Pressure [Right Arm] 130/89 Blood Pressure Mean 83 Blood Pressure Mean [Right Arm] 102 Blood Pressure Source [Right Arm] Automatic Cuff Blood Pressure Position [Right Arm] Sitting 02 Sat by Pulse Oximetry 99 98 Oxygen Delivery Method Room Air Lab Data Lab Results 06/19/24 14:50: WBC 9.4 D, RBC 3.95 L, Hgb 11.6 L, Hct 35.7 L, MCV 90.4, MCH 29.4, MCHC 32.5, RDW 14.7, Plt Count 231, MPV 10.2, Neut % (Auto) 74.8, Lymph % (Auto) 12.0, Allen % (Auto) 7.1, Eos % (Auto) 3.4, Baso % (Auto) 0.9, Neut # (Auto) 7.0, Lymph # (Auto) 1.1, Allen # (Auto) 0.7, Eos # (Auto) 0.3, Baso # (Auto) 0.1, Sodium 138, Potassium 3.9, Chloride 107, Carbon Dioxide 25, Anion Gap 9.9, BUN 9, Creatinine 0.50 L, Estimated Creat Clear 212, Estimated GFR 145, Est GFR ( Amer) 175, Glucose 98, Calcium 9.0, Magnesium 1.5 L, Total Bilirubin 0.1 L, AST 46 H, ALT 34, Alkaline Phosphatase 151 H, Total Protein 6.5, Albumin 3.1 L, Globulin 3.4 H, Albumin/Globulin Ratio 0.9 L, Procalcitonin 0.051, Urine Color Straw, Urine Appearance Cloudy, Urine pH 6.5, Ur Specific Hawley 1.010, Urine Protein Negative, Urine Glucose (UA) Negative, Urine Ketones Negative, Urine Blood 3+ A, Urine Nitrate Negative, Urine Bilirubin Negative, Urine Urobilinogen 0.2, Ur Leukocyte Esterase 2+ A, Urine RBC 10-20, Urine WBC 5-10, Ur Squamous Epith Cells 3-5, Urine Bacteria 1+, HCV Ab CARYN w/Rflx PCR Qn Negative, HIV Ag/Ab Combo Qual Negative Orders (Tests/Meds): ED MEDICATIONS Discontinued Medications Generic Name Dose Route Start Last Admin Trade Name Freq PRN Reason Stop Dose Admin Acetaminophen 1,000 mg 06/19/24 14:50 06/19/24 15:17 Acetaminophen 1,000mg/100ml Vial IV 06/19/24 14:51 1,000 mg ONCE ONE Administration Sodium Chloride 1,000 mls @ 999 mls/hr 06/19/24 14:50 06/19/24 15:17 Sod Chlor 0.9% 1000ml Bag IV 06/19/24 15:50 999 mls/hr .Q1H1M ONE Administration Magnesium Sulfate 2 gm in 50 mls @ 50 mls/hr 06/19/24 16:16 06/19/24 16:22 Magnesium Sulfate 2gm/50ml Premix IV 06/19/24 17:15 50 mls/hr ONCE ONE Administration Iopamidol 75 ml 06/19/24 15:45 06/19/24 15:47 Iopamidol-370 (76%);100ml Bottle IV 06/19/24 15:46 75 ml ONCE ONE Administration Ondansetron HCl 4 mg 06/19/24 14:50 06/19/24 15:16 Ondansetron 4mg/2ml Vial IV 06/19/24 14:51 4 mg ONCE ONE Administration Sodium Chloride 10 ml 06/19/24 15:45 06/19/24 15:47 Sodium Chloride 0.9% 10ml Syr (Rad Only) IV 06/19/24 15:46 10 ml ONCE ONE Administration ORDERS Category Date Time Status CT abdomen pelvis w con Stat Cat Scan 06/19/24 14:50 Completed CBC w/Auto Diff [Complete Blood Count Auto Diff] Stat Lab 06/19/24 14:50 Completed CMP [Comprehensive Metabolic Panel] Stat Lab 06/19/24 14:50 Completed HIV Combo Stat Lab 06/19/24 14:50 Completed Hepatitis C Ab Qual. W/ RFX Stat Lab 06/19/24 14:50 Completed Magnesium Stat Lab 06/19/24 14:50 Completed Procalcitonin Stat Lab 06/19/24 14:50 Completed UA [Urinalysis and Microscopic] Stat Lab 06/19/24 14:50 Completed Urine Culture Stat Micro 06/19/24 14:50 Received Medical Decision Narrative: In summary patient is a 29-year-old female who presents to the emergency department for evaluation of right lower quadrant abdominal pain. Patient is hemodynamically stable with a blood pressure 130/89 heart rate 93 with normal sinus rhythm on the bedside monitor breathing 18 times a minute satting at 99% on room air upon arrival, and afebrile at 97.7.. Physical exam is remarkable for mild right lower quadrant tenderness just proximal to the inguinal crease without rebound or guarding or rigidity. Uterus is palpable but soft. Normal bowel sounds.. Differential diagnosis includes constipation versus urinary tract infection versus postdelivery complication etc. Initial workup will be conducted with hematologic labs urinalysis CT scan abdomen pelvis. Initial interventions include Tylenol and Toradol. Initial workup reviewed by me shows that her hematologic labs are nonactionable urinalysis is bland and my informal interpretation of her CT scan abdomen pelvis shows no acute processes but patient has constipation and a large stool burden without colonic thickening.. Upon repeat evaluation patient reported symptomatic improvement in her pain and is tolerating p.o. Given this patient is appropriate for discharge with a disimpaction sheet and strict return precautions. Patient follow-up with her PCP/MULLING MACHINE OPERATOR within 48 hours for recheck. I was consulted by the EDUAR, and we discussed the complexity of the problems being addressed. I approved the treatment and management plan for this patient's care in the Emergency Department, thus performing a substantive portion of the medical decision making. Wyatt Fagan MD Critical Care <SHEN Diop - Last Filed: 06/19/24 19:35> Critical Care Time Critical Care Time: No
--- NOTE | 2024-06-19 14:50 | CT_ITS ---
FINAL REPORT TECHNIQUE: After the administration of intravenous contrast, axial images were obtained through the abdomen and pelvis by computed tomography. The study was performed with techniques to keep radiation dose as low as reasonably achievable, (ALARA). Individual dose reduction techniques using automated exposure control or adjustment of mA and/or kV according to the patient's size were employed. CLINICAL HISTORY: Right lower quadrant abdominal pain x2 days COMPARISON: 07/28/2022 FINDINGS: Abdomen: The lung bases are clear. The liver parenchyma is homogeneous. The gallbladder is present. The spleen, pancreas, adrenals and kidneys appear unremarkable. The aorta is normal in caliber. There is no free fluid or adenopathy. Pelvis: The appendix is not identified. There is a large amount stool throughout the colon. The uterus is enlarged. The myometrium is thickened and vascular consistent with recent . The uterus measures 21.5 cm in craniocaudal dimension. There is no definite acute inflammatory process. The urinary bladder is unremarkable. There is no free fluid or adenopathy. IMPRESSION: No definite acute inflammatory process Large stool burden. Reviewed, Interpreted and Dictated by Emil Garcia MD Transcribed by Amber Jin Authenticated and . [facility]
[2024-06-19 14:55] LABS: Microscopic, Urine URINE MICROSCOPIC (MICROSCOPIC)
[2024-06-19 15:00] LABS: Basophils # 0.1 K/mm3 (0-0.2); Basophils % 0.9 % (0.1-2.0); Eosinophils # 0.3 K/mm3 (0.0-0.4); Eosinophils % 3.4 % (0.1-12.0); Hematocrit 35.7 % (37.0-47.0); Hemoglobin 11.6 g/dL (12.2-16.2); Lymphocytes # 1.1 K/mm3 (0.7-4.5); Mean Corpuscular HGB Conc 32.5 g/dL (31.8-35.4); Mean Corpuscular Hemoglobin 29.4 pg (27.0-31.2); Mean Corpuscular Volume 90.4 fl (81-99); Mean Platelet Volume 10.2 fl (7.4-10.4); Monocytes # 0.7 K/mm3 (0.1-1.0); Monocytes % 7.1 % (1.7-9.3); Neutrophils % 74.8 % (37.0-80.0); Platelet Count 231 K/mm3 (142-424); Red Blood Count 3.95 M/mm3 (4.20-5.40); Red Cell Distribution Width 14.7 % (11.5-17.5); White Blood Count 9.4 K/mm3 (4.8-10.8)
[2024-06-19 15:03] LABS: Bilirubin,Urine Negative (Negative); Blood, Urine 3+ (Negative); Glucose,Urine (UA) Negative (Negative); Ketones,Urine Negative (Negative); Leukocyte Esterase,Urine 2+ (Negative); Nitrate,Urine Negative (Negative); PH,Urine 6.5 (5.0-8.5); Protein,Urine Negative (Negative); Urobilinogen,Urine 0.2 EU/dl (0.2)
[2024-06-19 15:07] LABS: Appearance,Urine Cloudy (Clear); Color,Urine Straw (Yellow)
[2024-06-19 15:15] VITALS: BP 116/67; PULSE 83; O2SAT 98
[2024-06-19] MEDS: ONDANSETRON 4MG/2ML VIAL 4 MG IV (15:16)
[2024-06-19] MEDS: ACETAMINOPHEN 1,000MG/100ML VIAL 1000 MG IV (15:17)
[2024-06-19] MEDS: 0.9 % SODIUM CHLORIDE 1000ML 1,000 ML 999 ML IV (15:17)
[2024-06-19 15:19] LABS: Albumin Level 3.1 g/dl (3.5-5.0); Chloride 107 mmol/L (98-107); Potassium 3.9 mmoL/L (3.5-5.1); Sodium 138 mmol/L (136-145)
[2024-06-19 15:22] LABS: Alanine Aminotransferase 34 U/L (12-78); Albumin/Globulin Ratio 0.9 (1.1-1.8); Alkaline Phosphatase 151 U/L (38-126); Anion Gap 9.9 mEq/L (5-15); Aspartate Amino Transferase 46 U/L (14-36); Blood Urea Nitrogen 9 mg/dl (7-17); Carbon Dioxide 25 mmol/L (22.0-30.0); Creatinine Clearance Estimated 212 mL/min (50-200); Estimated Glomerular Filt Rate 145 ml/min (>60); GFR (African American) 175 ML/MIN (>60); Globulin 3.4 g/dL (1.3-3.2); Glucose 98 mg/dl (74-100); Total Protein,Serum 6.5 g/dl (6.3-8.2)
[2024-06-19 15:23] LABS: Magnesium 1.5 mg/dl (1.6-2.3)
[2024-06-19 15:35] LABS: Bilirubin,Total 0.1 mg/dl (0.2-1.3)
--- NOTE | 2024-06-19 15:40 | PC.NURSE ---
Patient to radiology
[2024-06-19] MEDS: SODIUM CHLORIDE 0.9% 10ML SYR (RAD ONLY) 10 ML IV (15:47)
[2024-06-19] MEDS: IOPAMIDOL-370 (76%);100ML BOTTLE 75 ML IV (15:47)
--- NOTE | 2024-06-19 15:48 | PC.NURSE ---
Patient back from radiology
[2024-06-19 15:55] LABS: Bacteria,Urine 1+ /lpf
--- NOTE | 2024-06-19 16:00 | PC.NURSE ---
PT SNORING UPON ENTERING ROOM, AWAKENS EASILY. NO NEEDS AT THIS TIME. CALL LIGHT WITHIN REACH. AT BEDSIDE
[2024-06-19 16:04] LABS: HIV Combo NEGATIVE (Negative)
[2024-06-19 16:07] LABS: Procalcitonin 0.051 ng/mL (0.0-2.0)
[2024-06-19 16:11] LABS: Hepatitis C Ab Qual. W/ RFX NEGATIVE (Negative)
[2024-06-19] MEDS: MAGNESIUM SULFATE IN WATER 2 GM/50 ML PIGGYBACK IV (16:22)
--- NOTE | 2024-06-19 16:25 | PC.NURSE ---
PT MEDICATED PER EMAR, UPDATED ON POC. NO NEEDS VOICED
[2024-06-19 17:19] VITALS: BP 135/77; PULSE 83; RESP 13; TEMP 37.1
== END 2024-06-19 17:25 | disposition home or self-care (01) ==
PROVIDERS: Physician Assistant; Emergency Provider Emergency Medicine; PCP Internal Medicine
DX: K59.00 Constipation, unspecified (principal); R10.31 Right lower quadrant pain
CPT/HCPCS: 74177; 80053; 81001; 83735; 84145; 85025; 86803; 87086; 87389; 96361; 96365; 96374; 96375; 99285; J0131; J2405; J3475; J7030; Q9967

== ENCOUNTER 2025-01-17 17:25 | Outpatient (CLI) | payer BC, SELFPAY ==
[2025-01-17 20:21] LABS: Coronavirus 19, PCR Not Detected (NotDetected); Influenza A, PCR Not Detected (NotDetected); Influenza B, PCR Not Detected (NotDetected)
--- OUTSIDE RECORDS SUMMARY | 2025-01-20 13:11 | XMS_ITS | Clinical Summary ---
Author Organization [facility] [employer] [facility] Primary [facility] Address [address] [place] [address] Phone Care Team Providers Care Acetone Button Paster Name Role Phone Unavailable Primary Care Provider Unavailabl e Allergies No known active allergies Medications TETRAHYDROZOLINE HCL/ZN SULF (EYE DROPS OPHT) Apply to eye. Active Active Problems Problem Noted Date Diagnosed Date Oligomenorrhea 06/04/2010 Glaucoma Immunizations Immunization Administration Dates Next Due Td (adult), preservative free 11/08/2019 Surgical History Surgery Date Site/Laterality Comments EYE SURGERY Medical History Medical History Date Comments Glaucoma Social History Tobacco Use Types Packs/Day Years Used Date Smoking Tobacco: Never Smokeless Tobacco: Never Alcohol Use Standard Drinks/Week Comments No 0 (1 standard drink = 0.6 oz pur e alcohol) Comments No Sex and Gender Information Value Date Recorded Sex Assigned at Not on file Legal Sex Female 8:59 PM EDT Gender Identity Not on file Sexual Orientation Not on file Obstetrics History Last Filed Vital Signs Vital Sign Reading Time Taken Comments Blood Pressure 122/63 01/01/2020 7:49 PM EDT Pulse 79 01/01/2020 7:49 PM EDT Temperature 37.1 C (98.7 F) 01/01/2020 7:49 PM EDT Respiratory Rate 17 01/01/2020 7:49 PM EDT Oxygen Saturation 100% 01/01/2020 7:49 PM EDT Inhaled Oxygen Concentration - - Weight 64.4 kg (142 lb) 01/01/2020 6:15 PM EDT Height 157.5 cm (5' 2 ) 01/01/2020 6:15 PM EDT Body Mass Index 25.97 01/01/2020 6:15 PM EDT Plan of Treatment Health Maintenance Due Date Last Done Comments Annual Wellness Exam 1997 Hepatitis B Vaccine (1 of 3 - 19+ 3-dose series) 2013 Cervical Cancer Screening 2015 Pap Smear 2015 DTaP/TDaP/Td (1 - Tdap) 11/09/2019 11/08/2019 COVID-19 Vaccine (1 - 2023-2 5 season) 2024 HPV/Pap Cotest 2024 Influenza Vaccine (#1) 2025 Meningococcal B Vaccine Aged Out No l onger eligible based on patient's age to complete this topic Pneumococcal Vaccine 0-49 Aged Out No longer eligible based on patient's age to complete this topic Insurance [id number] [facility] 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
--- OUTSIDE RECORDS SUMMARY | 2025-01-20 13:11 | XMS_ITS | Clinical Summary ---
Author Organization [facility] Address [address] [place] [address] Care Team Providers Care Recordist Chief Name Role Phone Provider, No Known Primary Care Provider Unavail able Allergies No known active allergies Medications potassium chloride ER (K-TAB) 20 MEQ tablet controlled-relea se ER tablet Take 1 tablet by mouth 2 (Two) Times a Day. 4 Active Vit-Fe Fumarate-FA ( vitamin 27-0.8) 27-0.8 MG tablet tablet Take 1 tablet by mouth Daily. Active ferrous sulfate 325 (65 FE) MG tablet Take 1 tablet by mouth Daily With Breakfast. Active magnesium chloride ER [address] tablet Take 1 tablet by mouth Daily. Active dorzolamide-kyra lol (COSOPT) 2-0.5 % ophthalmic solution Administer 1 drop to both eyes 2 (Two) Times a Day. Active Insulin Pen Needle (Pen [place]) 31G X 5 MM miscIndications: Insulin controlled gestational diabetes mellitus (GDM) during , antepartum Use 1 each 4 (Four) Times a Day. 100 each 2 4 Active Continuous Glucose Sensor (Dexcom G7 Sensor) miscIndications: Insulin controlled gestational diabetes mellitus (GDM) during , antepartum Use 1 each Every 10 (Ten) Days. 3 each 6 4 Active Additional Information Patient not taking.Reported on 06/05/2024 Insulin Glargine (LANTUS SOLOSTAR) 100 UNIT/ML injection penIndications:I nsulin controlled gestational diabetes mellitus (GDM) during , antepartum Inject 12 Units under the skin into the appropriate area as directed Daily. 15 mL 1 Active Active Problems Problem Noted Date Diagnosed Date Gestational diabetes mellitus (GDM), antepartum 04/23/2024 Social History Tobacco Use Types Packs/Day Years Used Date Smoking Tobacco: Former Cigarettes Smokeless Tobacco: Never Tobacco Cessation:Counseling Given: Not Answered Alcohol Use Standard Drinks/Week Comments Not Currently 0 (1 standard drink = 0.6 oz pur e alcohol) Comments No Sex and Gender Information Value Date Recorded Sex Assigned at Not on file Legal Sex Female 4:46 PM EDT Gender Identity Not on file Sexual Orientation Not on file Last Filed Vital Signs Vital Sign Reading Time Taken Comments Blood Pressure 114/74 06/05/2024 1:00 PM EST Pulse - - Temperature - - Respiratory Rate - - Oxygen Saturation - - Inhaled Oxygen Concentration - - Weight 88 kg (194 lb) 06/05/2024 1:00 PM EST Height 160 cm (5' 3 ) 04/23/2024 10:24 AM EST Body Mass Index 34.37 04/23/2024 10:24 AM EST Plan of Treatment Health Maintenance Due Date Last Done Comments Annual Gynecologic Pelvic an d Breast Exam 1994 PAP SMEAR 2015 COVID-19 Vaccine ( - 2023-2 5 season) 2024 ANNUAL PHYSICAL 04/15/2024 HEPATITIS C SCREENING 04/15/2024 INFLUENZA VACCINE 02/26/2025 TDAP/TD VACCINES (3 - Td or Tdap) 04/01/2034 04/01/2024, 11/08/2019 Pneumococcal Vaccine 0-49 Aged Out No longer eligible based on patient's age to complete this topic Insurance [facility] Care Teams Recordist Chief Relationship Specialty Start Date End Date Provider, [place] [address] PCP - General 04/15/24
--- OUTSIDE RECORDS SUMMARY | 2025-01-20 13:11 | XMS_ITS | Clinical Summary ---
Author Organization [facility] Address [address], [address] [place] [address] Care Team Providers Care Box Bender Name Role Phone Parul García MD Primary Care Provider [phone] Allergies No known active allergies Medications dorzolamide-kyra lol (COSOPT) 22.3-6.8 MG/ML ophthalmic solution Place 1 drop into both eyes 2 times daily. Active latanoprost (XALATAN) 0.005 % ophthalmic solution 1 drop nightly. Active brimonidine (ALPHAGAN P) 0.1 % SOLN 1 drop 2 times daily. Active fluorometholone (FML) 0.1 % ophthalmic suspension Place 1 drop into the right eye daily. Active ciprofloxacin (CILOXAN) 0.3 % ophthalmic solution 1 drop 2 times daily Active Social History Tobacco Use Types Packs/Day Years Used Date Smoking Tobacco: Never Alcohol Use Standard Drinks/Week Comments No 0 (1 standard drink = 0.6 oz pur e alcohol) Comments No Sex and Gender Information Value Date Recorded Sex Assigned at Not on file Legal Sex Female 10:43 PM EST Gender Identity Not on file Sexual Orientation Not on file Last Filed Vital Signs Vital Sign Reading Time Taken Comments Blood Pressure 109/63 06/26/2015 2:55 PM EST Pulse 86 06/26/2015 2:55 PM EST Temperature 36.7 C (98 F) 06/26/2015 2:24 PM EST Respiratory Rate 16 06/26/2015 2:55 PM EST Oxygen Saturation 99% 06/26/2015 2:55 PM EST Inhaled Oxygen Concentration - - Weight 65.8 kg (145 lb) 06/26/2015 10:07 AM EST Height 157.5 cm (5' 2 ) 06/26/2015 10:07 AM EST Body Mass Index 26.52 06/26/2015 10:07 AM EST Plan of Treatment Not on file Care Teams Box Bender Relationship Specialty Start Date End Date Parul García MD [address] [place] [address] PCP - General 09/06/10
--- OUTSIDE RECORDS SUMMARY | 2025-01-20 13:13 | XMS_ITS | Encounter Summary ---
Author Organization [facility] Address [address], [address] [place] [address] Care Team Providers Care Sail Cutter Name Role Phone Parul García MD Primary Care Provider [phone] Encounter Details Date Type Department Care Team (Late st Contact Info) Description 06/19/2015 PAT Telephone [facility] PAT [address] [place] [address] Dinorah Almazan RN Social History Tobacco Use Types Packs/Day Years Used Date Smoking Tobacco: Never Alcohol Use Standard Drinks/Week Comments No 0 (1 standard drink = 0.6 oz pur e alcohol) Comments No Sex and Gender Information Value Date Recorded Sex Assigned at Not on file Legal Sex Female 10:43 PM EST Gender Identity Not on file Sexual Orientation Not on file documented as of this encounter Progress Notes * Jacki Chairez RN - 06/23/2015 2:02 PM EST Obstructive Sleep Apnea (AZEB) Screening Patient: Sarah Parks Date of : 1995 Date: 06/23/2015 1. Are you a loud and/or regular snorer? [] Yes [x] No 2. Have you been observed to gasp or stop breathing during sleep? [] Yes [x] No 3. Do you feel tired or groggy upon awakening or do you awaken with a headache? [] Yes [x] No 4. Are you often tired or fatigued during the wake time hours? [] Yes [x] No 5. Do you fall asleep sitting, reading, watching TV or driving? [] Yes [x] No 6. Do you often have problems with memory or concentration? [] Yes [x] No If patient's score is >=3 they are considered high risk for AZEB. Notify the anesthesiologist of the high risk and document in focus note. Note: If the patient's BMI is more than 35 kg m , has neck circumference > 40 cm, and/or high blood pressure the risk is greater (?? [employer] [employer], 2006). documented in this encounter Plan of Treatment Not on file documented as of this encounter Visit Diagnoses Not on filedocumented in this encounter Care Teams Sail Cutter Relationship Specialty Start Date End Date Parul García MD [address] [place] [address] PCP - General 09/06/10 documented as of this encounter
== END 2025-01-17 23:59 | disposition home or self-care (01) ==
LOC: LAB.DROPOF 01-20 13:09
PROVIDERS: PCP Nurse Practitioner Family; Visit Provider Nurse Practitioner Family
DX: J06.9 Acute upper respiratory infection, unspecified (principal)
CPT/HCPCS: 87631